=== PATIENT | female | born 1980 | race Caucasian/White ===

== ENCOUNTER 2016-05-11 15:19 | Emergency (ER) | payer MEDICARE, MEDICAID ==
[~2016-05-11] VITALS: Ht 165.1 cm; Wt 65.8 kg
[~2016-05-11 15:19] MED LIST: ALPR0.5T PO; BUSP10TA PO; DIVA500T2 PO; GLIP10TA13 PO; INSU100C4 SQ; INSU100V8 SQ; LISI-334 PO; METF10002 PO; QUET400T4 PO; VENL150C PO
[2016-05-11] MEDS ORDERED: IV NORMAL SALINE 1000ML BAG 1,000 ML IV SCH (16:15)
[2016-05-11] MEDS ORDERED: NAPROXEN 500 MG TABLET PO ONE (16:15)
--- NOTE | 2016-05-11 16:15 | PHYS DOC ---
Past Medical History Past Medical History: Anxiety, Diabetes-Type I Past Surgical History: Other Additional Past Surgical Histo: D&C x 2; endometriosis ablation; adenoidectomy Alcohol Use: None Drug Use: None Adult General Chief Complaint Chief Complaint: BLOOD SUGAR PROBLEM HPI HPI Patient is a 35 year old female who presents with body aches. Patient reports over the past several days she has been experiencing generalized body aches, cough, runny nose, polyuria. She denies fever. Patient concerned that she is in DKA as she is type I diabetic and her blood glucose has been somewhat elevated, getting up to 425 last night. She has been taking her insulin as she is supposed to. No nausea or vomiting. No abdominal pain, chest pain, SOB. She has tried taking ibuprofen and hydrocodone for her symptoms with insufficient relief. No other acute complaints. Review of Systems Review of Systems Constitutional: Denies fever or chills Eyes: Denies change in visual acuity or eye pain HENT: Runny nose. Denies sore throat Respiratory: Cough. Denies shortness of breath Cardiovascular: Denies chest pain GI: Denies abdominal pain, nausea, vomiting, bloody stools or diarrhea : Polyuria. Denies dysuria or hematuria Musculoskeletal: General myalgias Integument: Denies rash or skin lesions Neurologic: Denies headache, focal weakness or sensory changes Current Medications Current Medications Current Medications Medications (Trade) Dose Ordered Sig/Adam Start Time Stop Time Status Last Admin Dose Admin Naproxen 500 mg 500 mg 1X ONCE 05/11/16 16:15 05/11/16 16:19 DC 05/11/16 17:28 500 MG Sodium Chloride (Iv Sodium Chloride 0.9% 1000ml Bag) 1,000 ml @ 1,000 mls/hr 1X ONCE 05/11/16 18:30 05/11/16 18:30 DC Allergies Allergies Allergies Coded Allergies Type Severity Reaction Last Updated Verified No Known Drug Allergies 07/08/15 No Physical Exam Physical Exam Constitutional: Well developed, well nourished, no acute distress, non-toxic appearance HENT: Normocephalic, atraumatic, bilateral external ears normal. Oropharynx without exudate or erythema. Eyes: EOMI, conjunctiva normal, no discharge Neck: Normal range of motion, no stridor Cardiovascular: Heart rate normal, regular rhythm, no murmur Lungs & Thorax: Bilateral breath sounds clear to auscultation Abdomen: Bowel sounds normal, soft, non-distended, no TTP Skin: Warm, dry, no erythema, no rash Extremities: No obvious deformity, no edema Neurologic: Alert and oriented X 3, no gross deficits noted Current Patient Data Vital Signs Vital Signs Date Time Temp Pulse Resp B/P Pulse Ox O2 Delivery O2 Flow Rate FiO2 05/11/16 17:30 74 21 99/50 99 Room Air 05/11/16 16:04 98.1 98.1 Lab Values Laboratory Tests Test 05/11/16 17:00 05/11/16 17:10 White Blood Count 14.9x10^3/uL (4.0-11.0) H Red Blood Count 4.88x10^6/uL (3.50-5.40) Hemoglobin 14.7g/dL (12.0-15.5) Hematocrit 44.2% (36.0-47.0) Mean Corpuscular Volume 91fL (79-100) Mean Corpuscular Hemoglobin 30pg (25-35) Mean Corpuscular Hemoglobin Concent 33g/dL (31-37) Red Cell Distribution Width 13.3% (11.5-14.5) Platelet Count 281x10^3/uL (140-400) Neutrophils (%) (Auto) 62% (31-73) Lymphocytes (%) (Auto) 31% (24-48) Monocytes (%) (Auto) 6% (0-9) Eosinophils (%) (Auto) 1% (0-3) Basophils (%) (Auto) 1% (0-3) Neutrophils # (Auto) 9.2x10^3uL (1.8-7.7) H Lymphocytes # (Auto) 4.6x10^3/uL (1.0-4.8) Monocytes # (Auto) 0.9x10^3/uL (0.0-1.1) Eosinophils # (Auto) 0.1x10^3/uL (0.0-0.7) Basophils # (Auto) 0.1x10^3/uL (0.0-0.2) Sodium Level 140mmol/L (136-145) Potassium Level 3.7mmol/L (3.5-5.1) Chloride Level 103mmol/L (98-107) Carbon Dioxide Level 27mmol/L (21-32) Anion Gap 10 (6-14) Blood Urea Nitrogen 22mg/dL (7-20) H Creatinine 0.6mg/dL (0.6-1.0) Estimated GFR (Cockcroft-Gault) 113.1 BUN/Creatinine Ratio 37 (6-20) H Glucose Level 275mg/dL (70-99) H Calcium Level 9.1mg/dL (8.5-10.1) Total Bilirubin 0.4mg/dL (0.2-1.0) Aspartate Amino Transferase (AST) 14U/L (15-37) L Alanine Aminotransferase (ALT) 29U/L (14-59) Alkaline Phosphatase 63U/L (46-116) Total Protein 7.3g/dL (6.4-8.2) Albumin 3.7g/dL (3.4-5.0) Albumin/Globulin Ratio 1.0 (1.0-1.7) Urine Collection Type Void Urine Color Yellow Urine Clarity Clear Urine pH 5.5 Urine Specific [place] >=1.030 Urine Protein Negativemg/dL (NEG-TRACE) Urine Glucose (UA) >=1000mg/dL (NEG) Urine Ketones (Stick) 40mg/dL (NEG) Urine Blood Negative (NEG) Urine Nitrite Negative (NEG) Urine Bilirubin Negative (NEG) Urine Urobilinogen Dipstick 0.2mg/dL (0.2 mg/dL) Urine Leukocyte Esterase Negative (NEG) Urine RBC 0/HPF (0-2) Urine WBC Occ/HPF (0-4) Urine Squamous Epithelial Cells Mod/LPF Urine Bacteria Few/HPF (0-FEW) Urine Mucus Mod/LPF Urine Yeast Present/HPF Urine Test Negative (NEG) Laboratory Tests 05/11/16 17:00 Laboratory Tests 05/11/16 17:00 EKG EKG [] Radiology/Procedures Radiology/Procedures CXR (my read): Few scattered punctate opacities, otherwise no acute abnormality. Course & Med Decision Making Course & Med Decision Making Pertinent Labs and Imaging studies reviewed. (See chart for details) Patient is 35 year old female who presents with cough, runny nose, myalgias, polyuria. Physical exams without concerning findings. Likely viral URI. Will check labs to r/o DKA. IV fluids and naproxen ordered for relief of symptoms. Labs unremarkable other than mild leukocytosis. Blood glucose 275; bicarb and anion gap both wnl, so no DKA. Discussed results with patient, who is feeling somewhat better at this time. Discussed expected course of illness and symptomatic treatment with patient. Will discharge home with rx for NSAID, instructions for close follow up, and strict return precautions. Dragon Disclaimer Dragon Disclaimer This electronic medical record was generated, in whole or in part, using a voice recognition dictation system. Departure Departure Impression: Primary Impression: Upper respiratory infection Disposition: HOME, SELF-CARE Condition: STABLE Referrals: ALBERTO MCCOY (PCP) Patient Instructions: Upper Respiratory Infection, Adult Additional Instructions: Thank you for allowing us to provide care today in the Emergency Department. Take the provided medication as directed. Schedule a follow up appointment with your primary care doctor. Return promptly to the Emergency Department if you develop any new or concerning symptoms. Scripts Naproxen 375 Mg [id number] Mg PO BID PRN MUSCLE PAIN #20 Prov:JAZIEL PIZARRO MD 05/11/16 JAIZEL PIZARRO MD May 11, 2016 16:15
[2016-05-11 17:21] LABS: NEG OBC UR NEG; POS OBC UR POS
[2016-05-11 17:22] LABS: BASO # 0.1 x10^3/uL (0.0-0.2); BASO % 1 % (0-3); EOS % 1 % (0-3); HEMATOCRIT 44.2 % (36.0-47.0); HEMOGLOBIN 14.7 g/dL (12.0-15.5); LYMPH # 4.6 x10^3/uL (1.0-4.8); LYMPH % 31 % (24-48); MEAN CORPUSCULAR HEMOGLOBIN 30 pg (25-35); MEAN CORPUSCULAR HGB CONC 33 g/dL (31-37); MEAN CORPUSCULAR VOLUME 91 fL (79-100); MONO % 6 % (0-9); NEUT % 62 % (31-73); PLATELET COUNT 281 x10^3/uL (140-400); RED BLOOD COUNT 4.88 x10^6/uL (3.50-5.40); RED CELL DISTRIBUTION WIDTH 13.3 % (11.5-14.5); WHITE BLOOD COUNT 14.9 x10^3/uL (4.0-11.0)
[2016-05-11 17:25] LABS: BILIRUBIN,URINE NEGATIVE (NEG); GLUCOSE,URINE >=1000 mg/dL (NEG); NITRITE,URINE NEGATIVE (NEG); PH,URINE 5.5; PROTEIN,URINE NEGATIVE (NEG-TRACE); UROBILINOGEN,URINE 0.2 mg/dL (0.2 mg/dL)
[2016-05-11 17:29] LABS: CALCIUM 9.1 mg/dL (8.5-10.1); CREATININE 0.6 mg/dL (0.6-1.0); GFR 113.1; POTASSIUM 3.7 mmol/L (3.5-5.1)
[2016-05-11 17:30] VITALS: BP 99/50
[2016-05-11 17:34] LABS: ALBUMIN 3.7 g/dL (3.4-5.0); TOTAL BILIRUBIN 0.4 mg/dL (0.2-1.0); TOTAL PROTEIN 7.3 g/dL (6.4-8.2)
[2016-05-11 17:44] LABS: BACTERIA,URINE FEW /HPF (0-FEW); RBC,URINE 0 /HPF (0-2); SQUAMOUS EPITHELIAL CELL,UR MOD /LPF; WBC,URINE OCC /HPF (0-4); YEAST,URINE PRESENT /HPF
[2016-05-11] MEDS ORDERED: NAPR375T3 PO (18:21)
[2016-05-11] MEDS ORDERED: IV NORMAL SALINE 1000ML BAG 1,000 ML IV ONE (18:30)
--- NOTE | 2016-05-12 09:17 | RAD ---
PA and lateral chest. History: Cough, history of asthma PA and lateral views were taken of the chest. Lungs are free of infiltrates. Heart is normal in size. There is no pleural effusion. Impression: 1. No acute chest disease.
== END 2016-05-11 18:34 | disposition home or self-care (01) ==
LOC: ER 15:19
DX: J06.9 Acute upper respiratory infection, unspecified (principal); E10.9 Type 1 diabetes mellitus without complications
CPT/HCPCS: 36415; 71020; 80053; 81001; 81025; 85027; 96360; 99285; J7030

== ENCOUNTER 2016-08-13 21:56 | Emergency (ER) | payer MEDICARE, MEDICAID ==
[~2016-08-13] VITALS: Ht 165.1 cm; Wt 68.0 kg
[~2016-08-13 21:56] MED LIST changes: +NAPR375T3 PO
[2016-08-13 22:18] VITALS: BP 124/62
[2016-08-13] MEDS ORDERED: CIPR10DR AD (22:55)
[2016-08-13] MEDS ORDERED: D-ME118S2 PO (22:55)
[2016-08-13] MEDS ORDERED: AZIT250T6 PO (22:55)
--- NOTE | 2016-08-13 22:57 | PHYS DOC ---
Past Medical History Past Medical History: Anxiety, Diabetes-Type I Past Surgical History: Other Additional Past Surgical Histo: D&C x 2; endometriosis ablation; adenoidectomy Alcohol Use: Sober Drug Use: None Adult General Chief Complaint Chief Complaint: COUGH HPI HPI Patient is a 35 year old female with a history of insulin-dependent diabetes and asthma presents the emergency Department today with a complaint of harsh, nonproductive cough with difficulty breathing that is been progressive over the past 3 weeks. She now complains of nasal congestion and right ear pain as well. Patient was seen at couple weeks ago and was told that she had a viral upper respiratory infection. She has not followed up since that period of time. Patient states that she does have an appointment with primary care doctor's office in the morning. She states that her blood sugars have been in the 200s. She is currently on this regimen for that in these discuss further glycemic management. Patient denies hospitalization, antibiotic use or foreign travel within the past 90 days. Review of Systems Review of Systems Constitutional: Denies fever or chills [] Eyes: Denies change in visual acuity, redness, or eye pain [] HENT: Denies nasal congestion or sore throat [] Respiratory: Denies cough or shortness of breath [] Cardiovascular: No additional information not addressed in HPI [] GI: Denies abdominal pain, nausea, vomiting, bloody stools or diarrhea [] : Denies dysuria or hematuria [] Musculoskeletal: Denies back pain or joint pain [] Integument: Denies rash or skin lesions [] Neurologic: Denies headache, focal weakness or sensory changes [] Endocrine: Denies polyuria or polydipsia [] Current Medications Current Medications Current Medications Medications (Trade) Dose Ordered Sig/Adam Start Time Stop Time Status Last Admin Dose Admin Albuterol/ Ipratropium (Duoneb) 3 ml 1X ONCE 08/13/16 23:00 08/13/16 23:01 DC 08/13/16 23:03 3 ML Allergies Allergies Allergies Coded Allergies Type Severity Reaction Last Updated Verified No Known Drug Allergies 07/08/15 No Physical Exam Physical Exam Constitutional: Well developed, well nourished, no acute distress, non-toxic appearance. Patient is afebrile. HENT: Normocephalic, atraumatic, bilateral external ears normal, oropharynx moist, no oral exudates, boggy nasal mucosa with scant clear rhinorrhea. Right external ear canal is inflamed and slightly swollen. There is no mucopurulent drainage. Right tympanic membrane is normal in appearance without erythema, bulging, fluid meniscus or perforation. There is no evidence of mastoiditis. Eyes: PERRLA, EOMI, conjunctiva normal, no discharge. [] Neck: Normal range of motion, no tenderness, supple, no stridor. [] Cardiovascular:Heart rate regular rhythm, no murmur [] Lungs & Thorax: There is no respiratory distress or respiratory fatigue. There is no posturing or sensory muscle use. Patient is able speak in full sentences. Patient has scattered, bilateral coarse end expiratory wheezing. Abdomen: Bowel sounds normal, soft, no tenderness, no masses, no pulsatile masses. [] Skin: Warm, dry, no erythema, no rash. [] Back: No tenderness, no CVA tenderness. [] Extremities: No tenderness, no cyanosis, no clubbing, ROM intact, no edema. [] Neurologic: Alert and oriented X 3, normal motor function, normal sensory function, no focal deficits noted. [] Psychologic: Affect normal, judgement normal, mood normal. [] Current Patient Data Vital Signs Vital Signs Date Time Temp Pulse Resp B/P Pulse Ox O2 Delivery O2 Flow Rate FiO2 08/13/16 23:03 97 Room Air 08/13/16 22:18 97.9 80 20 97.9 EKG EKG [] Radiology/Procedures Radiology/Procedures [] Course & Med Decision Making Course & Med Decision Making Pertinent Labs and Imaging studies reviewed. (See chart for details) [] Dragon Disclaimer Dragon Disclaimer This electronic medical record was generated, in whole or in part, using a voice recognition dictation system. Departure Departure Impression: Primary Impression: Otitis externa Additional Impression: Bronchitis Disposition: 01 HOME, SELF-CARE Condition: IMPROVED Referrals: ALBERTO MCCOY (PCP) Patient Instructions: Acute Bronchitis, [id number], Otitis Externa, Easy-to- Read, Smoking Cessation, Tips For Success, Smoking, You Can Quit, [id number] Additional Instructions: 1. Take medications as prescribed. [id number] Afrin nasal spray twice a day for 3 days to help with the nasal congestion as well. 2. Review the discharge instructions provided for self-care and reasons to return the emergency department. 3. Follow-up tomorrow for your appointment as planned. Be sure to discuss your problems with consistent blood sugar control as well as. Scripts Ciprofloxacin/Hydrocortisone (Cipro Hc Otic Suspension)10 Ml Drops.susp3 Drop AD BID external ear infection 7 Days Prov:OLIVIA ADRIAN 08/13/16 D-Methorphan Hb/Prometh Hcl (Promethazine-Dm Syrup)118 Ml Syrup5 Ml PO PRN Q4HRS COUGH #120 ML Prov:OLIVIA ADRIAN 08/13/16 Azithromycin (Azithromycin Tablet)250 Mg Tablet1 Pkg PO UD #6 TAB Prov:OLIVIA ADRIAN 08/13/16 Problem Qualifiers Primary Impression: Otitis externa Otitis externa type: noninfectious Noninfectious otitis externa type: reactive Laterality: right Chronicity: acute Qualified Code: H60.551 - Acute reactive otitis externa, right ear OLIVIA ADRIAN Aug 13, 2016 22:57
[2016-08-13] MEDS ORDERED: IPRATRPIUM/ALBUTEROL 0.5/2.5MG 3 ML NEBU. NEB ONE (23:00)
== END 2016-08-13 23:15 | disposition home or self-care (01) ==
LOC: ER 21:56
DX: H60.551 Acute reactive otitis externa, right ear (principal); J40 Bronchitis, not specified as acute or chronic; E10.9 Type 1 diabetes mellitus without complications; F41.9 Anxiety disorder, unspecified
CPT/HCPCS: 94250; 94640; 99283; J7620

== ENCOUNTER 2016-09-01 10:20 | Emergency (ER) | payer MEDICARE, MEDICAID ==
[~2016-09-01] VITALS: Ht 165.1 cm; Wt 72.6 kg
[~2016-09-01 10:20] MED LIST changes: +AZIT250T6 PO; +CIPR10DR AD; +D-ME118S2 PO; +METF-620 PO; -METF10002 PO
[2016-09-01 10:43] VITALS: BP 134/60
[2016-09-01] MEDS ORDERED: DIPHTH,PERTUSS(ACELL),TET TOX 0.5 ML DISP.SYRIN. VAX IM ONE (11:00)
--- NOTE | 2016-09-01 11:17 | RAD ---
2 view CXR: Clinical indications: Cough for one week. Back pain for 2 days.. Findings: No acute lung infiltrate or pleural effusion or pulmonary edema or lung mass or pneumothorax is seen. The heart size, pulmonary vasculature, mediastinum and both marilyn are unremarkable. The osseous structures appear intact. Impression: No acute radiographic abnormality is seen.
[2016-09-01] MEDS ORDERED: LIDOCAINE 2% VISCOUS 15 ML SOLUTION. SWSW ONE (11:30)
[2016-09-01 12:03] LABS: BILIRUBIN,URINE NEGATIVE (NEG); GLUCOSE,URINE >=1000 mg/dL (NEG); NITRITE,URINE NEGATIVE (NEG); PROTEIN,URINE NEGATIVE (NEG-TRACE); UROBILINOGEN,URINE 0.2 mg/dL (0.2 mg/dL)
[2016-09-01] MEDS ORDERED: LIDO20SO PO (12:08)
[2016-09-01] MEDS ORDERED: SULF1TAB24 PO (12:08)
[2016-09-01] MEDS ORDERED: BENZ100C PO (12:08)
--- NOTE | 2016-09-01 12:08 | PHYS DOC ---
Past Medical History Past Medical History: Anxiety, Diabetes-Type I Past Surgical History: Other Additional Past Surgical Histo: D&C x 2; endometriosis ablation; adenoidectomy Alcohol Use: Sober Drug Use: None Adult General Chief Complaint Chief Complaint: COUGH HPI HPI Patient is a 35 year old female with history of anxiety and diabetes type 1 who presents today with multiple complaints. Patient is complaining of a productive cough for the last 1 week. Patient states 2 weeks ago she was treated with azithromycin for bronchitis. She is a smoker. She states she smokes 2 packs of cigarettes a day. Patient denies any fever. She is also complaining of a sore throat and ear pain. Patient is also complaining of ingrown hairs on her pubic area. Patient states the areas appear red. The been red for week. Patient denies any drainage from the areas. She states her shots are up-to-date. She states her blood sugars run in the 200s. She states she is on insulin. Review of Systems Review of Systems Constitutional: See history of present illness Eyes: Denies change in visual acuity, redness, or eye pain [] HENT: Bilateral ear pain and sore throat [] Respiratory: Productive cough Cardiovascular: No additional information not addressed in HPI [] GI: Denies abdominal pain, nausea, vomiting, bloody stools or diarrhea [] : Denies dysuria or hematuria [] Musculoskeletal: Denies back pain or joint pain [] Integument: Ingrown hairs Neurologic: Denies headache, focal weakness or sensory changes [] Endocrine: Denies polyuria or polydipsia [] Current Medications Current Medications Current Medications Medications (Trade) Dose Ordered Sig/Adam Start Time Stop Time Status Last Admin Dose Admin Diphtheria/ Tetanus/Acell Pertussis (Boostrix) 0.5 ml ONCE ONCE 09/01/16 11:00 09/01/16 11:01 Cancel Lidocaine HCl (Viscous Lidocaine) 15 ml 1X ONCE 09/01/16 11:30 09/01/16 11:31 DC 09/01/16 11:32 15 ML Allergies Allergies Allergies Coded Allergies Type Severity Reaction Last Updated Verified No Known Drug Allergies 07/08/15 No Physical Exam Physical Exam Constitutional: Well developed, well nourished, no acute distress, non-toxic appearance. [] HENT: Normocephalic, atraumatic, bilateral external ears normal, oropharynx moist, no oral exudates, nose normal. [] Eyes: PERRLA, EOMI, conjunctiva normal, no discharge. [] Neck: Normal range of motion, no tenderness, supple, no stridor. [] Cardiovascular:Heart rate regular rhythm, no murmur [] Lungs & Thorax: Bilateral breath sounds clear to auscultation [] Abdomen: Bowel sounds normal, soft, no tenderness, no masses, no pulsatile masses. [] Skin: pubic region with scattered areas of cellulitis consistent from infected ingrown hair follicles. No drainage from the areas. Back: No tenderness, no CVA tenderness. [] Extremities: No tenderness, no cyanosis, no clubbing, ROM intact, no edema. [] Neurologic: Alert and oriented X 3, normal motor function, normal sensory function, no focal deficits noted. [] Psychologic: Affect normal, judgement normal, mood normal. [] Current Patient Data Vital Signs Vital Signs Date Time Temp Pulse Resp B/P Pulse Ox O2 Delivery O2 Flow Rate FiO2 09/01/16 10:43 98.1 62 18 134/60 97 Room Air 98.1 EKG EKG [] Radiology/Procedures Radiology/Procedures [] Course & Med Decision Making Course & Med Decision Making Pertinent Labs and Imaging studies reviewed. (See chart for details) Patient is in the ED with multiple complaints including a productive cough, bilateral ear pain, sore throat, ingrown hairs that appear infected. Her upper respiratory infection symptoms are suspicious for bronchitis which is viral. She requested a cough syrup. Recommended Tessalon Perles instead and OTC cough medicines. She has albuterol at home. She is diabetic hence prednisone motor good choice. Her shots are up-to-date. Chest x-ray interpreted by radiologist is negative for any acute findings. Negative rapid strep. Discharged with Bactrim for 10 days. Instructed to keep the pubic area clean. Follow-up with her own doctor in one week. Smoking cessation education provided Jarred Disclaimer Jarred Disclaimer This electronic medical record was generated, in whole or in part, using a voice recognition dictation system. Departure Departure Impression: Primary Impression: Acute viral bronchitis Additional Impressions: Smoking addiction Cellulitis of pubic region Ingrown hair Otalgia of both ears Viral pharyngitis Disposition: 01 HOME, SELF-CARE Condition: STABLE Referrals: ALBERTO MCCOY (PCP) Follow-up with your doctor in one week Patient Instructions: Acute Bronchitis, [id number], Cellulitis, Viral and Bacterial Pharyngitis Additional Instructions: You were diagnosed with viral bronchitis. Stop smoking. Use albuterol inhaler as needed. Keep the pubic area clean and dry. Use saltwater gargles for sore throat. We also sent you home with lidocaine viscous for sore throat. We put you on antibiotics for ingrown infected hair follicles. Follow-up with your doctor in one week. Scripts Lidocaine Hcl (Lidocaine Hcl Viscous)20 Mg/1 Ml Solution5 Ml PO TID #100 ML Prov:USMAN BOYD APRN 09/01/16 Benzonatate (Tessalon Perle)100 Mg Capsule1 Cap PO TID #30 CAP Prov:USMAN BOYD APRN 09/01/16 Sulfamethoxazole/Trimethoprim (Bactrim Ds Tablet)1 Each Tablet1 Tab PO BID #20 TAB Prov:USMAN BOYD APRN 09/01/16 Problem Qualifiers USMAN BOYD APRN Sep 01, 2016 12:08
[2016-09-01 12:27] LABS: NEGATIVE OBC STREP NEG; POSITIVE OBC STREP POS
[2016-09-01 12:33] LABS: BACTERIA,URINE 0 /HPF (0-FEW); RBC,URINE 0 /HPF (0-2); SQUAMOUS EPITHELIAL CELL,UR MOD /LPF
== END 2016-09-01 12:28 | disposition home or self-care (01) ==
LOC: ER 10:20
DX: J20.8 Acute bronchitis due to other specified organisms (principal); L03.314 Cellulitis of groin; H92.03 Otalgia, bilateral; L73.1 Pseudofolliculitis barbae; F17.210 Nicotine dependence, cigarettes, uncomplicated; F41.9 Anxiety disorder, unspecified; E10.8 Type 1 diabetes mellitus with unspecified complications
CPT/HCPCS: 71020; 81001; 87070; 87880; 99285-25

== ENCOUNTER 2016-09-10 21:25 | Emergency (ER) | payer MEDICARE, MEDICAID ==
[~2016-09-10 21:25] MED LIST changes: +BENZ100C PO; +LIDO20SO PO; +SULF1TAB24 PO
[2016-09-11] MEDS ORDERED: METR500T PO (19:59)
== END 2016-09-10 21:51 | disposition left against medical advice (07) ==
LOC: ER 21:25
DX: R05 Cough (principal); R73.9 Hyperglycemia, unspecified; Z53.21 Procedure and treatment not carried out due to patient leaving prior to being seen by health care provider

== ENCOUNTER 2016-09-11 16:55 | Emergency (ER) | payer MEDICAID, MEDICARE ==
[~2016-09-11] VITALS: Ht 165.1 cm; Wt 72.6 kg
--- NOTE | 2016-09-11 17:25 | PHYS DOC ---
Past Medical History Past Medical History: Anxiety, Diabetes-Type I Past Surgical History: Other Additional Past Surgical Histo: D&C x 2; endometriosis ablation; adenoidectomy Alcohol Use: Sober Drug Use: None Adult General Chief Complaint Chief Complaint: HYPERGLYCEMIA HPI HPI Patient is a 35 year old patient presenting to the emergency department for evaluation of hyperglycemia. She has a large list of other complaints mostly regarding her fibromyalgia pain. 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 She says that she has been in DKA multiple times in the past and is unsure if she is in DKA currently. Patient has been taking her insulin as prescribed. She does continue to have her bronchitis symptoms but she does continue to smoke I told her she would not get better as long she smokes cigarettes. Patient denies any fevers chills vomiting dysuria or hematuria rash. Patient is in no obvious distress with normal vital signs. Review of Systems Review of Systems Constitutional: Denies fever or chills [] Eyes: Denies change in visual acuity, redness, or eye pain [] HENT: Denies nasal congestion or sore throat [] Respiratory: Denies cough or shortness of breath [] Cardiovascular: No additional information not addressed in HPI [] GI: Denies abdominal pain, nausea, vomiting, bloody stools or diarrhea [] : Denies dysuria or hematuria [] Musculoskeletal: Denies back pain or joint pain. Diffuse arthralgias and myalgias. Integument: Denies rash or skin lesions [] Neurologic: Denies headache, focal weakness or sensory changes [] Current Medications Current Medications Current Medications Medications (Trade) Dose Ordered Sig/Adam Start Time Stop Time Status Last Admin Dose Admin Diphenhydramine HCl (Benadryl) 25 mg 1X ONCE 09/11/16 17:45 09/11/16 17:46 DC 09/11/16 18:32 25 MG Insulin Human Regular (Novolin R Vial) 6 unit 1X ONCE 09/11/16 19:00 09/11/16 19:01 DC 09/11/16 19:12 6 UNIT Ketorolac Tromethamine (Toradol) 30 mg 1X ONCE 09/11/16 17:45 09/11/16 17:46 DC 09/11/16 18:32 30 MG Sodium Chloride 1,000 ml @ 1,000 mls/hr 1X ONCE 09/11/16 19:00 09/11/16 19:59 09/11/16 19:13 1,000 MLS/HR Allergies Allergies Allergies Coded Allergies Type Severity Reaction Last Updated Verified No Known Drug Allergies 07/08/15 No Physical Exam Physical Exam Constitutional: Well developed, well nourished, no acute distress, non-toxic appearance. [] HENT: Normocephalic, atraumatic, bilateral external ears normal, oropharynx moist, no oral exudates, nose normal. [] Eyes: PERRLA, EOMI, conjunctiva normal, no discharge. [] Neck: Normal range of motion, no tenderness, supple, no stridor. [] Cardiovascular:Heart rate regular rhythm, no murmur [] Lungs & Thorax: Bilateral breath sounds clear to auscultation [] Abdomen: Bowel sounds normal, soft, no tenderness, no masses, no pulsatile masses. [] Skin: Warm, dry, no erythema, no rash. [] Back: No tenderness, no CVA tenderness. [] Extremities: No tenderness, no cyanosis, no clubbing, ROM intact, no edema. [] Neurologic: Alert and oriented X 3, normal motor function, normal sensory function, no focal deficits noted. [] Current Patient Data Vital Signs Vital Signs Date Time Temp Pulse Resp B/P (MAP) Pulse Ox O2 Delivery O2 Flow Rate FiO2 09/11/16 18:33 77 17 100/54 (69) 97 Room Air 09/11/16 17:37 98.5 98.5 Lab Values Laboratory Tests Test 09/11/16 16:40 09/11/16 17:32 09/11/16 17:35 09/11/16 18:11 POC Urine HCG, Qualitative Hcg negative (Negative) Glucose (Fingerstick) 306 mg/dL (70-99) H Urine Collection Type Unknown Urine Color Yellow Urine Clarity Clear Urine pH 6.5 Urine Specific [place] >=1.030 Urine Protein Negative mg/dL (NEG-TRACE) Urine Glucose (UA) >=1000 mg/dL (NEG) Urine Ketones (Stick) 15 mg/dL (NEG) Urine Blood Negative (NEG) Urine Nitrite Negative (NEG) Urine Bilirubin Negative (NEG) Urine Urobilinogen Dipstick 0.2 mg/dL (0.2 mg/dL) Urine Leukocyte Esterase Negative (NEG) Urine RBC 0 /HPF (0-2) Urine WBC 5-10 /HPF (0-4) Urine Squamous Epithelial Cells Mod /LPF Urine Bacteria 0 /HPF (0-FEW) Urine Mucus Mod /LPF White Blood Count 10.2 x10^3/uL (4.0-11.0) Red Blood Count 4.49 x10^6/uL (3.50-5.40) Hemoglobin 13.6 g/dL (12.0-15.5) Hematocrit 38.9 % (36.0-47.0) Mean Corpuscular Volume 87 fL (79-100) Mean Corpuscular Hemoglobin 30 pg (25-35) Mean Corpuscular Hemoglobin Concent 35 g/dL (31-37) Red Cell Distribution Width 13.1 % (11.5-14.5) Platelet Count 272 x10^3/uL (140-400) Neutrophils (%) (Auto) 48 % (31-73) Lymphocytes (%) (Auto) 42 % (24-48) Monocytes (%) (Auto) 8 % (0-9) Eosinophils (%) (Auto) 2 % (0-3) Basophils (%) (Auto) 1 % (0-3) Neutrophils # (Auto) 4.9 x10^3uL (1.8-7.7) Lymphocytes # (Auto) 4.3 x10^3/uL (1.0-4.8) Monocytes # (Auto) 0.8 x10^3/uL (0.0-1.1) Eosinophils # (Auto) 0.2 x10^3/uL (0.0-0.7) Basophils # (Auto) 0.1 x10^3/uL (0.0-0.2) Sodium Level 138 mmol/L (136-145) Potassium Level 3.7 mmol/L (3.5-5.1) Chloride Level 102 mmol/L (98-107) Carbon Dioxide Level 26 mmol/L (21-32) Anion Gap 10 (6-14) Blood Urea Nitrogen 22 mg/dL (7-20) H Creatinine 0.6 mg/dL (0.6-1.0) Estimated GFR (Cockcroft-Gault) 113.1 BUN/Creatinine Ratio 37 (6-20) H Glucose Level 269 mg/dL (70-99) H Calcium Level 9.0 mg/dL (8.5-10.1) Magnesium Level 1.6 mg/dL (1.8-2.4) L Total Bilirubin 0.2 mg/dL (0.2-1.0) Aspartate Amino Transferase (AST) 13 U/L (15-37) L Alanine Aminotransferase (ALT) 19 U/L (14-59) Alkaline Phosphatase 69 U/L (46-116) Creatine Kinase 43 U/L (26-192) Total Protein 7.1 g/dL (6.4-8.2) Albumin 3.3 g/dL (3.4-5.0) L Albumin/Globulin Ratio 0.9 (1.0-1.7) L Laboratory Tests 09/11/16 18:11 Laboratory Tests 09/11/16 18:11 Microbiology 09/11/16 Wet Prep - Final, Complete EKG EKG [] Radiology/Procedures Radiology/Procedures [] Course & Med Decision Making Course & Med Decision Making Patient with concerns of hyperglycemia such she will get labs be given IV fluids and then reassessed. She only has trace ketones in her urines and she looks well with normal labs otherwise with no acidosis or anion gap. She has clue cells on her wet mount she says she has vaginal discharge such she'll be treated with Flagyl. Patient told to check her blood sugars frequently and repeat serum her normal dose and follow with her primary care provider and/or admissions gate attendant as soon as possible. Patient aware and agreeable with plan for discharge and verbalized understanding of the need for short-term follow-up and strict ER return precautions discussed, worsening pain fevers vomiting or other general concerns. Dragon Disclaimer Dragon Disclaimer This electronic medical record was generated, in whole or in part, using a voice recognition dictation system. Departure Departure Impression: Primary Impression: Hyperglycemia due to type 1 diabetes mellitus Additional Impression: BV (bacterial vaginosis) Disposition: 01 HOME, SELF-CARE Condition: GOOD Referrals: ALBERTO MCCOY (PCP) Patient Instructions: Bacterial Vaginosis Scripts Metronidazole (FLAGYL) 500 Mg Tablet 1 TAB PO BID, #14 TAB Prov: ALF BOWLING DO 09/11/16 Problem Qualifiers ALF BOWLING DO September 11, 2016 17:24
[2016-09-11] MEDS ORDERED: IV NORMAL SALINE 1000ML BAG 1,000 ML IV ONE ×2 (17:45→19:00)
[2016-09-11] MEDS ORDERED: diphenhydrAMINE 50 MG/ML VIAL IVP ONE (17:45)
[2016-09-11] MEDS ORDERED: KETOROLAC TROMETHAMINE 30 MG/ML INJ. IV ONE (17:45)
[2016-09-11 17:57] LABS: BILIRUBIN,URINE NEGATIVE (NEG); GLUCOSE,URINE >=1000 mg/dL (NEG); NITRITE,URINE NEGATIVE (NEG); PH,URINE 6.5; PROTEIN,URINE NEGATIVE (NEG-TRACE); UROBILINOGEN,URINE 0.2 mg/dL (0.2 mg/dL)
[2016-09-11 18:14] LABS: BACTERIA,URINE 0 /HPF (0-FEW); RBC,URINE 0 /HPF (0-2); SQUAMOUS EPITHELIAL CELL,UR MOD /LPF
[2016-09-11 18:19] LABS: BASO # 0.1 x10^3/uL (0.0-0.2); BASO % 1 % (0-3); EOS % 2 % (0-3); HEMATOCRIT 38.9 % (36.0-47.0); HEMOGLOBIN 13.6 g/dL (12.0-15.5); LYMPH # 4.3 x10^3/uL (1.0-4.8); LYMPH % 42 % (24-48); MEAN CORPUSCULAR HEMOGLOBIN 30 pg (25-35); MEAN CORPUSCULAR HGB CONC 35 g/dL (31-37); MEAN CORPUSCULAR VOLUME 87 fL (79-100); MONO % 8 % (0-9); NEUT % 48 % (31-73); PLATELET COUNT 272 x10^3/uL (140-400); RED BLOOD COUNT 4.49 x10^6/uL (3.50-5.40); RED CELL DISTRIBUTION WIDTH 13.1 % (11.5-14.5); WHITE BLOOD COUNT 10.2 x10^3/uL (4.0-11.0)
[2016-09-11 18:31] LABS: CREATININE 0.6 mg/dL (0.6-1.0); GFR 113.1; POTASSIUM 3.7 mmol/L (3.5-5.1)
[2016-09-11 18:37] LABS: ALBUMIN 3.3 g/dL (3.4-5.0); ALBUMIN/GLOBULIN RATIO 0.9 (1.0-1.7); MAGNESIUM 1.6 mg/dL (1.8-2.4); TOTAL BILIRUBIN 0.2 mg/dL (0.2-1.0); TOTAL PROTEIN 7.1 g/dL (6.4-8.2)
[2016-09-11] MEDS ORDERED: INSULIN REGULAR 100 UNIT/ML 10ML VIAL. IV ONE (19:00)
[2016-09-11 19:33] VITALS: BP 111/59
[2016-09-11] MEDS ORDERED: METR500T PO (19:59)
== END 2016-09-11 20:29 | disposition home or self-care (01) ==
LOC: ER 16:55
DX: E10.65 Type 1 diabetes mellitus with hyperglycemia (principal); N76.0 Acute vaginitis; F41.9 Anxiety disorder, unspecified; M79.7 Fibromyalgia
CPT/HCPCS: 36415; 80053; 81001; 81025; 82550; 82947; 83735; 85027; 87086; 87491; 87591; 96361; 96374; 96375; 99285; J1200; J1815; J1885; J7030; Q0111; 99284-25

== ENCOUNTER 2017-03-20 02:56 | Emergency (ER) | payer MEDICARE, MEDICAID ==
[~2017-03-20] VITALS: Ht 170.2 cm; Wt 72.6 kg
[~2017-03-20 02:56] MED LIST changes: +CLON1TAB PO; +METR500T PO; +NAPR-695 PO; -NAPR375T3 PO
[2017-03-20 03:14] VITALS: BP 169/84
--- NOTE | 2017-03-20 06:17 | PHYS DOC ---
Past Medical History Past Medical History: Anxiety, Diabetes-Type I, Fibromyalgia, High Cholesterol Past Surgical History: Other Additional Past Surgical Histo: D&C x 2; endometriosis ablation; adenoidectomy Alcohol Use: Heavy Drug Use: Marijuana, Methamphetamine Adult General Chief Complaint Chief Complaint: SUBSTANCE ABUSE HPI HPI 36-year-old female with a history of methamphetamine addiction as well as diabetes with a recent admission for diabetic ketoacidosis. Patient now presents to the emergency department after using some meth recently. She was concerned that her glucose was elevated. She is not vomiting or having diarrhea. No fevers chills sweats or shaking chills. No headache or stiff neck. Denies chest pain or shortness of breath. Patient is considering pursuing detox therapy for her methamphetamine. Offered this as an inpatient however she wishes to pursue it as an outpatient. Patient is blood glucose checked on arrival and was 180 so she is not interested in any further evaluation or treatment and will sign out AGAINST MEDICAL ADVICE. Review of Systems Review of Systems Constitutional: Denies fever or chills [] Eyes: Denies change in visual acuity, redness, or eye pain [] HENT: Denies nasal congestion or sore throat [] Respiratory: Denies cough or shortness of breath [] Cardiovascular: No additional information not addressed in HPI [] GI: Denies abdominal pain, nausea, vomiting, bloody stools or diarrhea [] : Denies dysuria or hematuria [] Musculoskeletal: Denies back pain or joint pain [] Integument: Denies rash or skin lesions [] Neurologic: Denies headache, focal weakness or sensory changes [] Endocrine: Denies polyuria or polydipsia [] All other systems were reviewed and found to be within normal limits, except as documented in this note. Allergies Allergies Allergies Coded Allergies Type Severity Reaction Last Updated Verified No Known Drug Allergies 07/08/15 No Physical Exam Physical Exam Anxious-appearing 36-year-old female however she is alert communicative cooperative and competent for decision making. Constitutional: Disheveled nervous appearing female no acute distress HENT: Normocephalic, atraumatic, bilateral external ears normal, oropharynx moist, no oral exudates, nose normal. [] Eyes: PERRLA, EOMI, conjunctiva normal, no discharge. [] Neck: Normal range of motion, no tenderness, supple, no stridor. [] Cardiovascular:Heart rate regular rhythm, no murmur [] Lungs & Thorax: Bilateral breath sounds clear to auscultation [] Abdomen: Bowel sounds normal, soft, no tenderness, no masses, no pulsatile masses. [] Skin: Warm, dry Back: No tenderness, no CVA tenderness. [] Extremities: No tenderness, no cyanosis, no clubbing, ROM intact, no edema. [] Neurologic: Alert and oriented X 3, normal motor function, normal sensory function, no focal deficits noted. [] Psychologic: Affect normal, judgement normal, mood normal. [] Current Patient Data Vital Signs Vital Signs Date Time Temp Pulse Resp B/P (MAP) Pulse Ox O2 Delivery O2 Flow Rate FiO2 03/20/17 03:14 98.1 98 18 169/84 (112) 98 Room Air 98.1 Lab Values Laboratory Tests Test 03/20/17 03:07 03/20/17 03:10 Glucose (Fingerstick) 180 mg/dL (70-99) H POC Urine HCG, Qualitative Hcg negative (Negative) EKG EKG [] Radiology/Procedures Radiology/Procedures [] Course & Med Decision Making Course & Med Decision Making Pertinent Labs and Imaging studies reviewed. (See chart for details) She with methamphetamine addiction now refusing further care after blood glucose being determined be 180. Patient is comfortable at this level and is very clear that she is not suicidal. She has not overdosed intentionally in any way nor injured herself. She has no homicidal ideation. Patient states she is functional and wishes to pursue outpatient drug therapy. She is aware that she may have a skin infection from her methamphetamine IV drug abuse however she'll follow-up with the primary care doctor does not want further care at this time. Patient is competent to sign out AGAINST MEDICAL ADVICE and did so. She is encouraged to return any time for further workup and treatment as needed reading detox therapy if she so desires [] Dragon Disclaimer Dragon Disclaimer This electronic medical record was generated, in whole or in part, using a voice recognition dictation system. Departure Departure Impression: Primary Impression: Left against medical advice Additional Impressions: Methamphetamine abuse Hyperglycemia Disposition: AGAINST MEDICAL ADVICE Condition: STABLE Problem Qualifiers JASON AVINA MD Mar 20, 2017 06:16
== END 2017-03-20 03:25 | disposition left against medical advice (07) ==
LOC: ER 02:56
DX: E11.69 Type 2 diabetes mellitus with other specified complication (principal); E10.10 Type 1 diabetes mellitus with ketoacidosis without coma; F15.10 Other stimulant abuse, uncomplicated; M79.7 Fibromyalgia; E78.00 Pure hypercholesterolemia, unspecified; F10.10 Alcohol abuse, uncomplicated
CPT/HCPCS: 81025; 82962; 99283

== ENCOUNTER 2017-03-26 02:41 | Inpatient (IN) | payer MEDICARE, MEDICAID ==
[2017-03-26] VITALS (12 sets, daily range): BP systolic 111–138; BP diastolic 49–84
[~2017-03-26] VITALS: Ht 165.1 cm; Wt 60.9 kg
[2017-03-26 03:08] LABS: BILIRUBIN,URINE NEGATIVE (NEG); GLUCOSE,URINE >=1000 mg/dL (NEG); NITRITE,URINE NEGATIVE (NEG); PROTEIN,URINE 30 mg/dL (NEG-TRACE); UROBILINOGEN,URINE 0.2 mg/dL (0.2 mg/dL)
[2017-03-26 03:14] LABS: BACTERIA,URINE 0 /HPF (0-FEW); RBC,URINE 0 /HPF (0-2); SQUAMOUS EPITHELIAL CELL,UR MOD /LPF; WBC,URINE 0 /HPF (0-4)
[2017-03-26 03:15] LABS: BARBITURATES NEG (NEG); BENZODIAZEPINES POS (NEG); CANNABINOIDS NEG (NEG); COCAINE NEG (NEG); METHADONE NEG (NEG); OPIATES NEG (NEG); PHENCYCLIDINE NEG (NEG)
[2017-03-26] MEDS ORDERED: METOCLOPRAMIDE HCL 10 MG/2 ML VIAL. ONE (03:21)
[2017-03-26] MEDS ORDERED: ONDANSETRON PF 4 MG/2 ML VIAL. ONE (03:21)
[2017-03-26] MEDS ORDERED: ONDANSETRON PF 4 MG/2 ML VIAL. IV ONE (03:30)
[2017-03-26] MEDS ORDERED: INSULIN,REGULAR 150 UNIT DRIP 150 ML IV ONE (03:30)
[2017-03-26] MEDS ORDERED: IV NORMAL SALINE 1000ML BAG 1,000 ML IV ONE ×2 (03:30→04:15)
[2017-03-26] MEDS ORDERED: METOCLOPRAMIDE HCL 10 MG/2 ML VIAL. IV ONE (03:30)
[2017-03-26 03:34] LABS: BASO # 0.1 x10^3/uL (0.0-0.2); BASO % 0 % (0-3); EOS % 0 % (0-3); HEMATOCRIT 53.8 % (36.0-47.0); HEMOGLOBIN 16.9 g/dL (12.0-15.5); LYMPH # 2.3 x10^3/uL (1.0-4.8); LYMPH % 12 % (24-48); MEAN CORPUSCULAR HEMOGLOBIN 30 pg (25-35); MEAN CORPUSCULAR HGB CONC 32 g/dL (31-37); MEAN CORPUSCULAR VOLUME 95 fL (79-100); MONO % 4 % (0-9); NEUT % 84 % (31-73); PLATELET COUNT 520 x10^3/uL (140-400); RED BLOOD COUNT 5.65 x10^6/uL (3.50-5.40); RED CELL DISTRIBUTION WIDTH 14.2 % (11.5-14.5)
[2017-03-26 03:56] LABS: ALBUMIN/GLOBULIN RATIO 1.2 (1.0-1.7); CALCIUM 11.1 mg/dL (8.5-10.1); GFR 62.4; POTASSIUM 5.8 mmol/L (3.5-5.1); TOTAL BILIRUBIN 0.5 mg/dL (0.2-1.0); TOTAL PROTEIN 9.3 g/dL (6.4-8.2)
[2017-03-26] MEDS ORDERED: fentaNYL PF VIAL 100 MCG/2 ML VIAL IV ONE (04:00)
--- NOTE | 2017-03-26 04:06 | PHYS DOC ---
Past Medical History Past Medical History: Anxiety, Diabetes-Type I, Fibromyalgia, High Cholesterol Past Surgical History: Other Additional Past Surgical Histo: D&C x 2; endometriosis ablation; adenoidectomy Smoking: Cigarettes Alcohol Use: Heavy Drug Use: Marijuana, Methamphetamine Social History Narrative: IVDA Adult General Chief Complaint Chief Complaint: HYPERGLYCEMIA HPI HPI Patient is a 36 year old female who presents with vomiting. She is a type I diabetic diagnosed at age 19 on insulin. She is a heavy IV drug user; smokes tobacco; smokes marijuana and shoots up IV meth. She states she has not used her insulin for a couple days. She was seen here March 20 when she left AMA after a several day binge of IV meth use. At that time her D stick was 180; hCG was negative. She left before any other evaluation could be performed. She states that she can't keep anything down. She has pain all over. No diarrhea abdominal cramping and vomiting. Review of Systems Review of Systems Constitutional: Denies fever or chills Eyes: Denies change in visual acuity, redness, or eye pain HENT: Denies nasal congestion or sore throat Respiratory: Denies cough or shortness of breath Cardiovascular: No chest pain GI: POS abdominal pain, POS nausea and vomiting, NO bloody stools or diarrhea : Denies dysuria or hematuria Musculoskeletal: Denies back pain or joint pain Integument: Denies rash POS skin lesions from IV DA. Neurologic: Denies headache, focal weakness or sensory changes Endocrine: POS polyuria or polydipsia All other systems were reviewed and found to be within normal limits, except as documented in this note. Current Medications Current Medications Current Medications Medications (Trade) Dose Ordered Sig/Adam Start Time Stop Time Status Last Admin Dose Admin Fentanyl Citrate (Fentanyl 2ml Vial) 50 mcg 1X ONCE 03/26/17 04:00 03/26/17 04:01 DC 03/26/17 04:15 50 MCG Insulin Human Regular 150 ml @ 0 mls/hr 1X ONCE 03/26/17 03:30 03/26/17 03:31 DC 03/26/17 03:46 0 MLS/HR Metoclopramide HCl (Reglan Vial) 10 mg 1X ONCE 03/26/17 03:30 03/26/17 03:31 DC 03/26/17 03:30 10 MG Ondansetron HCl (Zofran) 4 mg 1X ONCE 03/26/17 03:30 03/26/17 03:31 DC 03/26/17 03:30 4 MG Sodium Chloride 1,000 ml @ 1,000 mls/hr 1X ONCE 03/26/17 03:30 03/26/17 04:29 DC 03/26/17 03:30 1,000 MLS/HR Allergies Allergies Allergies Coded Allergies Type Severity Reaction Last Updated Verified No Known Drug Allergies 07/08/15 No Physical Exam Physical Exam Constitutional: Well developed, well nourished, no acute distress, non-toxic appearance. HENT: Normocephalic, atraumatic, bilateral external ears normal, oropharynx dry , no oral exudates, nose normal. Eyes: PERRLA, EOMI, conjunctiva normal, no discharge. Neck: Normal range of motion, no tenderness, supple, no stridor. Cardiovascular:Heart rate regular rhythm, tachycardic no murmur Lungs & Thorax: Bilateral breath sounds clear to auscultation Abdomen: Bowel sounds normal, soft, no tenderness, no masses, no pulsatile masses. Skin: Warm, dry, no erythema, no rash. Multiple scars and needle tracks on bilateral arms. Back: No tenderness, no CVA tenderness. Extremities: No tenderness, no cyanosis, no clubbing, ROM intact, no edema. Neurologic: Alert and oriented X 3, normal motor function, normal sensory function, no focal deficits noted. Psychologic: Affect normal, judgement normal, mood normal. Current Patient Data Vital Signs Vital Signs Date Time Temp Pulse Resp B/P (MAP) Pulse Ox O2 Delivery O2 Flow Rate FiO2 03/26/17 03:01 97.2 124 16 142/78 (99) 100 Room Air 97.2 Lab Values Laboratory Tests Test 03/26/17 02:52 03/26/17 02:55 03/26/17 03:17 03/26/17 03:30 Glucose (Fingerstick) 486 mg/dL (70-99) H Urine Collection Type Unknown Urine Color Yellow Urine Clarity Clear Urine pH 6.0 Urine Specific [place] 1.025 Urine Protein 30 mg/dL (NEG-TRACE) Urine Glucose (UA) >=1000 mg/dL (NEG) Urine Ketones (Stick) >=80 mg/dL (NEG) Urine Blood Negative (NEG) Urine Nitrite Negative (NEG) Urine Bilirubin Negative (NEG) Urine Urobilinogen Dipstick 0.2 mg/dL (0.2 mg/dL) Urine Leukocyte Esterase Negative (NEG) Urine RBC 0 /HPF (0-2) Urine WBC 0 /HPF (0-4) Urine Squamous Epithelial Cells Mod /LPF Urine Bacteria 0 /HPF (0-FEW) Urine Hyaline Casts Few /HPF Urine Mucus Slight /LPF Urine Opiates Screen Neg (NEG) Urine Methadone Screen Neg (NEG) Urine Barbiturates Neg (NEG) Urine Phencyclidine Screen Neg (NEG) Urine Amphetamine/Methamphetamine Neg (NEG) Urine Benzodiazepines Screen Pos (NEG) Urine Cocaine Screen Neg (NEG) Urine Cannabinoids Screen Neg (NEG) Urine Ethyl Alcohol Neg (NEG) Sodium Level 138 mmol/L (136-145) Potassium Level 5.8 mmol/L (3.5-5.1) H Chloride Level 95 mmol/L (98-107) L Carbon Dioxide Level 8 mmol/L (21-32) *L Anion Gap 35 (6-14) H Blood Urea Nitrogen 19 mg/dL (7-20) Creatinine 1.0 mg/dL (0.6-1.0) Estimated GFR (Cockcroft-Gault) 62.4 BUN/Creatinine Ratio 19 (6-20) Glucose Level 499 mg/dL (70-99) H Calcium Level 11.1 mg/dL (8.5-10.1) H Total Bilirubin 0.5 mg/dL (0.2-1.0) Aspartate Amino Transferase (AST) 21 U/L (15-37) Alanine Aminotransferase (ALT) 32 U/L (14-59) Alkaline Phosphatase 166 U/L (46-116) H Total Protein 9.3 g/dL (6.4-8.2) H Albumin 5.0 g/dL (3.4-5.0) Albumin/Globulin Ratio 1.2 (1.0-1.7) White Blood Count 20.0 x10^3/uL (4.0-11.0) H Red Blood Count 5.65 x10^6/uL (3.50-5.40) H Hemoglobin 16.9 g/dL (12.0-15.5) H Hematocrit 53.8 % (36.0-47.0) H Mean Corpuscular Volume 95 fL (79-100) Mean Corpuscular Hemoglobin 30 pg (25-35) Mean Corpuscular Hemoglobin Concent 32 g/dL (31-37) Red Cell Distribution Width 14.2 % (11.5-14.5) Platelet Count 520 x10^3/uL (140-400) H Neutrophils (%) (Auto) 84 % (31-73) H Lymphocytes (%) (Auto) 12 % (24-48) L Monocytes (%) (Auto) 4 % (0-9) Eosinophils (%) (Auto) 0 % (0-3) Basophils (%) (Auto) 0 % (0-3) Neutrophils # (Auto) 16.8 x10^3uL (1.8-7.7) H Lymphocytes # (Auto) 2.3 x10^3/uL (1.0-4.8) Monocytes # (Auto) 0.8 x10^3/uL (0.0-1.1) Eosinophils # (Auto) 0.0 x10^3/uL (0.0-0.7) Basophils # (Auto) 0.1 x10^3/uL (0.0-0.2) Platelet Estimate Pending Acetone Level Mod pos (NEG) Laboratory Tests 03/26/17 03:30 Laboratory Tests 03/26/17 03:17 Course & Med Decision Making Course & Med Decision Making Patient upon arrival. The main concern is of course diabetic ketoacidosis. Patient is clearly extremely noncompliant. IV was established. Her D stick was over 400. Her urine came back positive ketones. Initiated normal saline fluid boluses. Insulin drip was initiated. Fentanyl IV for chronic and diffuse pain. Reglan and Zofran for the vomiting. She will clearly be admitted to ICU for insulin drip and further monitoring to Dr Wahl. At 0400 am: lab called with multiple critical values. At 0445 am: Patient resting now. BP 124/75, P 122, sat 100%. Second liter infusing. Dstick 359. At 0515 am: patient is a ER hold. Skin was examined no abscess noted but multiple needle tracks. I have spoken with the patient and/or caregivers. I have explained the patient' s condition, diagnosis and treatment plan based on the information available to me at this time. I have answered the patient's and/or caregiver's questions and addressed any concerns. The patient and/or caregivers have as good an understanding of the patient's diagnosis, condition and treatment plan as can be expected at this point. The patient has been stabilized within the capability of the emergency department. The patient will be transported for further care and management or will be moved to an observation or inpatient service. I have communicated with the staff or medical practitioner taking over this patient's care. I have assessed this patient clinically and believe that their condition requires admission to the hospital. After consulting the admitting physician about this case, they have asked that I admit this patient to their service as an inpatient based on the clinical presentation and my impression. I spent approximately 30 minutes working and engaged directly in the patient care providing critical care evaluation this includes but not limited to time spent engaged in work directly related to the individual patients care. I spent time at the bedside, reviewing test results, discussing the case with staff, documenting the medical record and time spent with EMS discussing specific treatment issues when the patient presented and during his evaluation. This includes any discussion and updates with family members and/or patient. Dragon Disclaimer Dragon Disclaimer This electronic medical record was generated, in whole or in part, using a voice recognition dictation system. PROCEDURE Procedure Patient poor IV access due to IVDA. At 0420 AM Right 18 guage EJ placed easily by myself (consent obtained from patient) using sterile technique. Departure Departure Impression: Primary Impression: DKA (diabetic ketoacidoses) Additional Impressions: IV drug user Dehydration Vomiting Disposition: ADMITTED INPATIENT Admitting Physician: Paty Taylor Condition: CRITICAL Referrals: ALBERTO MCCOY (PCP) Problem Qualifiers Primary Impression: DKA (diabetic ketoacidoses) Diabetes mellitus type: type 1 Diabetes mellitus complication detail: without coma Qualified Codes: E10.10 - Type 1 diabetes mellitus with ketoacidosis without coma Additional Impressions: Vomiting Vomiting type: unspecified Vomiting Intractability: intractable Nausea presence: with nausea Qualified Codes: R11.2 - Nausea with vomiting, unspecified LORY WELLS MD Mar 26, 2017 04:06
[2017-03-26] MEDS ORDERED: INSULIN REGULAR VIAL 150 UNIT in 0.9 % SODIUM CHLORIDE 150ML 150 ML IV PRN ×2 (04:15→07:30)
[2017-03-26] MEDS ORDERED: fentaNYL PF VIAL 100 MCG/2 ML VIAL IV PRN (04:15)
[2017-03-26] MEDS ORDERED: ONDANSETRON PF 4 MG/2 ML VIAL. IV PRN (04:15)
[2017-03-26] MEDS ORDERED: IV NORMAL SALINE 1000ML BAG 500 ML IV ONE (04:30)
[2017-03-26 05:20] LABS: PLT ESTIMATE INCREASED (ADEQUATE)
[2017-03-26] MEDS ORDERED: IV NORMAL SALINE 1000ML BAG 1,000 ML IV SCH ×2 (07:16→10:00)
[2017-03-26] MEDS ORDERED: IV DEXTROSE 5 %-0.45 % NACL 1,000 ML IV SCH (07:19)
[2017-03-26] MEDS ORDERED: IV DEXTROSE 5% - 0.9 % NACL 1,000 ML IV SCH (07:45)
[2017-03-26 08:53] LABS: MAGNESIUM 2.3 mg/dL (1.8-2.4); PHOSPHORUS 7.4 mg/dL (2.6-4.7)
[2017-03-26] MEDS ORDERED: TRAM50TA PO (09:17)
[2017-03-26] MEDS ORDERED: LOVA40TA2 PO (09:17)
[2017-03-26] MEDS ORDERED: QUET400T4 PO (09:17)
[2017-03-26] MEDS ORDERED: QUET200T4 PO (09:17)
[2017-03-26] MEDS ORDERED: AMIT25TA PO (09:17)
[2017-03-26] MEDS ORDERED: LURA40TA PO (09:17)
[2017-03-26] MEDS ORDERED: ESCITALOPRAM OX10 MG PO (09:17)
[2017-03-26] MEDS ORDERED: INSU100I27 SQ ×2 (09:17)
[2017-03-26] MEDS ORDERED: INSU100I17 SQ ×2 (09:17)
[2017-03-26] MEDS ORDERED: OMEP20CA9 PO (09:17)
[2017-03-26] MEDS ORDERED: DIAZEPAM10 MG PO (09:17)
[2017-03-26 10:08] LABS: CALCIUM 8.4 mg/dL (8.5-10.1); CREATININE 0.7 mg/dL (0.6-1.0); GFR 94.2
[2017-03-26] MEDS: IV DEXTROSE 5% - 0.9 % NACL 1,000 ML IV SCH ×2 (11:03→12:33)
--- NOTE | 2017-03-26 12:07 | PDOC1 ---
History and Physical Date of Admission Date of Admission DATE: 03/26/17 TIME: 12:06 Identification/Chief Complaint Chief Complaint Review of Systems Review of Systems Constitutional: Denies fever or chills Eyes: Denies change in visual acuity, redness, or eye pain HENT: Denies nasal congestion or sore throat Respiratory: Denies cough or shortness of breath Cardiovascular: No chest pain GI: POS abdominal pain, POS nausea and vomiting, NO bloody stools or diarrhea : Denies dysuria or hematuria Musculoskeletal: Denies back pain or joint pain Integument: Denies rash POS skin lesions from IV DA. Neurologic: Denies headache, focal weakness or sensory changes Endocrine: POS polyuria or polydipsia 14 pt ros were reviewed and found to be within normal limits, except as documented in this note. Problems: History of Present Illness History of Present Illness seen in er with dka,noncompliant with insulin for several days heavy IV drug user; smokes tobacco 1 ppd; smokes marijuana and shoots IV meth. She states she has not used her insulin for days. seen here March 20 when she left AMA after a several day binge of IV meth use. At that time her D stick was 180; hCG was negative. Past Medical History Cardiovascular: No pertinent hx Psych: Anxiety, Addictions, Bipolar, Other Rheumatologic: No pertinent hx Infectious disease: No pertinent hx Family History Family History: Diabetes, Family History Unknown Social History ALCOHOL: other Drugs: Crystal meth Current Problem List Problem List Problems Medical Problems: (1) Dehydration Status: Acute (2) IV drug user Status: Acute (3) Vomiting Status: Acute Problems: Current Medications Current Medications Current Medications Sodium Chloride 1,000 ml @ 1,000 mls/hr 1X ONCE IV Last administered on 03/26 03:30; Start 03/26/17 at 03:30; Stop 03/26/17 at 04:29; Status DC Ondansetron HCl (Zofran) 4 mg 1X ONCE IV Last administered on 03/26/17 03:30 ; Start 03/26/17 at 03:30; Stop 03/26/17 at 03:31; Status DC Metoclopramide HCl (Reglan Vial) 10 mg 1X ONCE IV Last administered on 03:30; Start 03/26/17 at 03:30; Stop 03/26/17 at 03:31; Status DC Insulin Human Regular 150 ml @ 0 mls/hr 1X ONCE IV Last administered on 03:46; Start 03/26/17 at 03:30; Stop 03/26/17 at 03:31; Status DC Fentanyl Citrate (Fentanyl 2ml Vial) 50 mcg 1X ONCE IV Last administered on 04:15; Start 03/26/17 at 04:00; Stop 03/26/17 at 04:01; Status DC Ondansetron HCl (Zofran) 4 mg PRN Q8HRS PRN IV NAUSEA/VOMITING; Start at 04:15; Stop 03/27/17 at 04:14 Fentanyl Citrate (Fentanyl 2ml Vial) 50 mcg PRN Q1HR PRN IV PAIN; Start at 04:15; Stop 03/27/17 at 04:14 Insulin Human Regular 150 unit/ Sodium Chloride 151.5 ml @ 0 mls/hr CONT PRN IV SEE I/O RECORD; Start 03/26/17 at 04:15; Stop 03/26/17 at 07:24; Status DC Sodium Chloride 1,000 ml @ 150 mls/hr 1X ONCE IV ; Start 03/26/17 at 04:15; Stop 03/26/17 at 10:54; Status DC Sodium Chloride 500 ml @ 500 mls/hr 1X ONCE IV Last administered on 05:00; Start 03/26/17 at 04:30; Stop 03/26/17 at 05:29; Status DC Sodium Chloride 1,000 ml @ 1,000 mls/hr Q1H IV Last administered on 07:28; Start 03/26/17 at 07:16; Stop 03/26/17 at 08:15; Status DC Dextrose/Sodium Chloride 1,000 ml @ 250 mls/hr Q4H IV ; Start 03/26/17 at 07: 19; Status Cancel Insulin Human Regular 150 unit/ Sodium Chloride 151.5 ml @ 0 mls/hr CONT PRN PRN IV PER PROTOCOL; Start 03/26/17 at 07:30 Dextrose/Sodium Chloride 1,000 ml @ 250 mls/hr Q4H IV Last administered on 07:46; Start 03/26/17 at 07:45; Stop 03/26/17 at 10:01; Status DC Sodium Chloride 1,000 ml @ 250 mls/hr Q4H IV Last administered on 03/26/17t 10:06; Start 03/26/17 at 10:00; Stop 03/26/17 at 11:02; Status DC Dextrose/Sodium Chloride 1,000 ml @ 250 mls/hr Q4H IV Last administered on t 11:03; Start 03/26/17 at 11:00 Active Scripts Active Reported Levemir Flextouch (Insulin Detemir) 100 Unit/1 Ml Insuln.pen 30 Unit SQ QHS Levemir Flextouch (Insulin Detemir) 100 Unit/1 Ml Insuln.pen 25 Unit SQ DAILY Novolog Flexpen (Insulin Aspart) 100 Unit/1 Ml Insuln.pen 15 Unit SQ BIDACLD Novolog Flexpen (Insulin Aspart) 100 Unit/1 Ml Insuln.pen 12 Unit SQ DAILYWBKFT Seroquel (Quetiapine Fumarate) 400 Mg Tablet 400 Mg PO HS Seroquel (Quetiapine Fumarate) 200 Mg Tablet 200 Mg PO DAILY Diazepam 10 Mg Tablet 10 Mg PO PRN BID PRN Escitalopram Oxalate 10 Mg Tablet 10 Mg PO DAILY Tramadol Hcl 50 Mg Tablet 50 Mg PO PRN Q6HRS PRN Latuda (Lurasidone Hcl) 40 Mg Tablet 40 Mg PO QPM Lovastatin 40 Mg Tablet 40 Mg PO DAILY Amitriptyline Hcl 25 Mg Tablet 25 Mg PO PRN QHS PRN Omeprazole 20 Mg Capsule.dr 20 Mg PO DAILY Depakote (Divalproex Sodium) 500 Mg Tablet.dr 1,000 Tab PO DAILY Allergies Allergies: Coded Allergies: No Known Drug Allergies (Unverified , 07/08/15) Physical Exam Physical Exam Physical Exam Physical Exam Constitutional: Well developed, well nourished, no acute distress, non-toxic appearance. HENT: Normocephalic, atraumatic, bilateral external ears normal, oropharynx dry , no oral exudates, nose normal. Eyes: PERRLA, EOMI, conjunctiva normal, no discharge. Neck: Normal range of motion, no tenderness, supple, no stridor. Cardiovascular:Heart rate regular rhythm, tachycardic no murmur Lungs & Thorax: Bilateral breath sounds clear to auscultation Abdomen: Bowel sounds normal, soft, no tenderness, no masses, no pulsatile masses. Skin: Warm, dry, no erythema, no rash. Multiple scars and needle tracks on bilateral arms. Back: No tenderness, no CVA tenderness. Extremities: No tenderness, no cyanosis, no clubbing, ROM intact, no edema. Neurologic: Alert and oriented X 3, normal motor function, normal sensory function, no focal deficits noted. Psychologic: Affect sad judgement poor mood flat. Vitals Vitals Vital Signs Date Time Temp Pulse Resp B/P (MAP) Pulse Ox O2 Delivery O2 Flow Rate FiO2 03/26/17 11:00 110 20 135/68 (90) 99 Room Air 03/26/17 07:20 98.5 98.5 Labs Labs Laboratory Tests Test 03/26/17 02:52 03/26/17 02:55 03/26/17 03:17 03/26/17 03:30 Glucose (Fingerstick) 486 mg/dL (70-99) Urine Collection Type Unknown Urine Color Yellow Urine Clarity Clear Urine pH 6.0 Urine Specific [place] 1.025 Urine Protein 30 mg/dL (NEG-TRACE) Urine Glucose (UA) >=1000 mg/dL (NEG) Urine Ketones (Stick) >=80 mg/dL (NEG) Urine Blood Negative (NEG) Urine Nitrite Negative (NEG) Urine Bilirubin Negative (NEG) Urine Urobilinogen Dipstick 0.2 mg/dL (0.2 mg/dL) Urine Leukocyte Esterase Negative (NEG) Urine RBC 0 /HPF (0-2) Urine WBC 0 /HPF (0-4) Urine Squamous Epithelial Cells Mod /LPF Urine Bacteria 0 /HPF (0-FEW) Urine Hyaline Casts Few /HPF Urine Mucus Slight /LPF Urine Opiates Screen Neg (NEG) Urine Methadone Screen Neg (NEG) Urine Barbiturates Neg (NEG) Urine Phencyclidine Screen Neg (NEG) Urine Amphetamine/Methamphetamine Neg (NEG) Urine Benzodiazepines Screen Pos (NEG) Urine Cocaine Screen Neg (NEG) Urine Cannabinoids Screen Neg (NEG) Urine Ethyl Alcohol Neg (NEG) Sodium Level 138 mmol/L (136-145) Potassium Level 5.8 mmol/L (3.5-5.1) Chloride Level 95 mmol/L (98-107) Carbon Dioxide Level 8 mmol/L (21-32) Anion Gap 35 (6-14) Blood Urea Nitrogen 19 mg/dL (7-20) Creatinine 1.0 mg/dL (0.6-1.0) Estimated GFR (Cockcroft-Gault) 62.4 BUN/Creatinine Ratio 19 (6-20) Glucose Level 499 mg/dL (70-99) Calcium Level 11.1 mg/dL (8.5-10.1) Total Bilirubin 0.5 mg/dL (0.2-1.0) Aspartate Amino Transf (AST/SGOT) 21 U/L (15-37) Alanine Aminotransferase (ALT/SGPT) 32 U/L (14-59) Alkaline Phosphatase 166 U/L (46-116) Total Protein 9.3 g/dL (6.4-8.2) Albumin 5.0 g/dL (3.4-5.0) Albumin/Globulin Ratio 1.2 (1.0-1.7) White Blood Count 20.0 x10^3/uL (4.0-11.0) Red Blood Count 5.65 x10^6/uL (3.50-5.40) Hemoglobin 16.9 g/dL (12.0-15.5) Hematocrit 53.8 % (36.0-47.0) Mean Corpuscular Volume 95 fL (79-100) Mean Corpuscular Hemoglobin 30 pg (25-35) Mean Corpuscular Hemoglobin Concent 32 g/dL (31-37) Red Cell Distribution Width 14.2 % (11.5-14.5) Platelet Count 520 x10^3/uL (140-400) Neutrophils (%) (Auto) 84 % (31-73) Lymphocytes (%) (Auto) 12 % (24-48) Monocytes (%) (Auto) 4 % (0-9) Eosinophils (%) (Auto) 0 % (0-3) Basophils (%) (Auto) 0 % (0-3) Neutrophils # (Auto) 16.8 x10^3uL (1.8-7.7) Lymphocytes # (Auto) 2.3 x10^3/uL (1.0-4.8) Monocytes # (Auto) 0.8 x10^3/uL (0.0-1.1) Eosinophils # (Auto) 0.0 x10^3/uL (0.0-0.7) Basophils # (Auto) 0.1 x10^3/uL (0.0-0.2) Segmented Neutrophils % 85 % (35-66) Lymphocytes % 9 % (24-48) Monocytes % 6 % (0-10) Platelet Estimate Increased (ADEQUATE) Phosphorus Level 7.4 mg/dL (2.6-4.7) Magnesium Level 2.3 mg/dL (1.8-2.4) Acetone Level Mod pos (NEG) Test 03/26/17 04:53 03/26/17 05:59 03/26/17 07:22 03/26/17 08:22 Glucose (Fingerstick) 359 mg/dL (70-99) 250 mg/dL (70-99) 245 mg/dL (70-99) 267 mg/dL (70-99) Test 03/26/17 09:30 03/26/17 09:50 03/26/17 10:28 03/26/17 11:34 Glucose (Fingerstick) 287 mg/dL (70-99) 213 mg/dL (70-99) 224 mg/dL (70-99) Sodium Level 143 mmol/L (136-145) Potassium Level 4.0 mmol/L (3.5-5.1) Chloride Level 112 mmol/L (98-107) Carbon Dioxide Level 13 mmol/L (21-32) Anion Gap 18 (6-14) Blood Urea Nitrogen 14 mg/dL (7-20) Creatinine 0.7 mg/dL (0.6-1.0) Estimated GFR (Cockcroft-Gault) 94.2 Glucose Level 276 mg/dL (70-99) Calcium Level 8.4 mg/dL (8.5-10.1) Laboratory Tests Test 03/26/17 02:52 03/26/17 02:55 03/26/17 03:17 03/26/17 03:30 Glucose (Fingerstick) 486 mg/dL (70-99) Urine Collection Type Unknown Urine Color Yellow Urine Clarity Clear Urine pH 6.0 Urine Specific [place] 1.025 Urine Protein 30 mg/dL (NEG-TRACE) Urine Glucose (UA) >=1000 mg/dL (NEG) Urine Ketones (Stick) >=80 mg/dL (NEG) Urine Blood Negative (NEG) Urine Nitrite Negative (NEG) Urine Bilirubin Negative (NEG) Urine Urobilinogen Dipstick 0.2 mg/dL (0.2 mg/dL) Urine Leukocyte Esterase Negative (NEG) Urine RBC 0 /HPF (0-2) Urine WBC 0 /HPF (0-4) Urine Squamous Epithelial Cells Mod /LPF Urine Bacteria 0 /HPF (0-FEW) Urine Hyaline Casts Few /HPF Urine Mucus Slight /LPF Urine Opiates Screen Neg (NEG) Urine Methadone Screen Neg (NEG) Urine Barbiturates Neg (NEG) Urine Phencyclidine Screen Neg (NEG) Urine Amphetamine/Methamphetamine Neg (NEG) Urine Benzodiazepines Screen Pos (NEG) Urine Cocaine Screen Neg (NEG) Urine Cannabinoids Screen Neg (NEG) Urine Ethyl Alcohol Neg (NEG) Sodium Level 138 mmol/L (136-145) Potassium Level 5.8 mmol/L (3.5-5.1) Chloride Level 95 mmol/L (98-107) Carbon Dioxide Level 8 mmol/L (21-32) Anion Gap 35 (6-14) Blood Urea Nitrogen 19 mg/dL (7-20) Creatinine 1.0 mg/dL (0.6-1.0) Estimated GFR (Cockcroft-Gault) 62.4 BUN/Creatinine Ratio 19 (6-20) Glucose Level 499 mg/dL (70-99) Calcium Level 11.1 mg/dL (8.5-10.1) Total Bilirubin 0.5 mg/dL (0.2-1.0) Aspartate Amino Transf (AST/SGOT) 21 U/L (15-37) Alanine Aminotransferase (ALT/SGPT) 32 U/L (14-59) Alkaline Phosphatase 166 U/L (46-116) Total Protein 9.3 g/dL (6.4-8.2) Albumin 5.0 g/dL (3.4-5.0) Albumin/Globulin Ratio 1.2 (1.0-1.7) White Blood Count 20.0 x10^3/uL (4.0-11.0) Red Blood Count 5.65 x10^6/uL (3.50-5.40) Hemoglobin 16.9 g/dL (12.0-15.5) Hematocrit 53.8 % (36.0-47.0) Mean Corpuscular Volume 95 fL (79-100) Mean Corpuscular Hemoglobin 30 pg (25-35) Mean Corpuscular Hemoglobin Concent 32 g/dL (31-37) Red Cell Distribution Width 14.2 % (11.5-14.5) Platelet Count 520 x10^3/uL (140-400) Neutrophils (%) (Auto) 84 % (31-73) Lymphocytes (%) (Auto) 12 % (24-48) Monocytes (%) (Auto) 4 % (0-9) Eosinophils (%) (Auto) 0 % (0-3) Basophils (%) (Auto) 0 % (0-3) Neutrophils # (Auto) 16.8 x10^3uL (1.8-7.7) Lymphocytes # (Auto) 2.3 x10^3/uL (1.0-4.8) Monocytes # (Auto) 0.8 x10^3/uL (0.0-1.1) Eosinophils # (Auto) 0.0 x10^3/uL (0.0-0.7) Basophils # (Auto) 0.1 x10^3/uL (0.0-0.2) Segmented Neutrophils % 85 % (35-66) Lymphocytes % 9 % (24-48) Monocytes % 6 % (0-10) Platelet Estimate Increased (ADEQUATE) Phosphorus Level 7.4 mg/dL (2.6-4.7) Magnesium Level 2.3 mg/dL (1.8-2.4) Acetone Level Mod pos (NEG) Test 03/26/17 04:53 03/26/17 05:59 03/26/17 07:22 03/26/17 08:22 Glucose (Fingerstick) 359 mg/dL (70-99) 250 mg/dL (70-99) 245 mg/dL (70-99) 267 mg/dL (70-99) Test 03/26/17 09:30 03/26/17 09:50 03/26/17 10:28 03/26/17 11:34 Glucose (Fingerstick) 287 mg/dL (70-99) 213 mg/dL (70-99) 224 mg/dL (70-99) Sodium Level 143 mmol/L (136-145) Potassium Level 4.0 mmol/L (3.5-5.1) Chloride Level 112 mmol/L (98-107) Carbon Dioxide Level 13 mmol/L (21-32) Anion Gap 18 (6-14) Blood Urea Nitrogen 14 mg/dL (7-20) Creatinine 0.7 mg/dL (0.6-1.0) Estimated GFR (Cockcroft-Gault) 94.2 Glucose Level 276 mg/dL (70-99) Calcium Level 8.4 mg/dL (8.5-10.1) VTE Prophylaxis Ordered VTE Prophylaxis Devices: No VTE Pharmacological Prophylaxi: Yes Assessment/Plan Assessment/Plan 1. diabetic ketoacidosis, in icu, on protocol, has not closed anion gap yet 2. hx meth use 3. hx noncompliance, longstanding 4. hx iv drug use by report 5, hx depression, bipolar illness plan continue iv insulin drip follow dka protocol lovenox dvt prophylaxis pt states sehe sees DR [facility]UN[facility], endo 35 min cc time RISA DAVALOS MD Mar 26, 2017 12:07
[2017-03-26 14:48] LABS: CALCIUM 8.5 mg/dL (8.5-10.1); CREATININE 0.6 mg/dL (0.6-1.0); GFR 112.5; MAGNESIUM 1.6 mg/dL (1.8-2.4); POTASSIUM 3.1 mmol/L (3.5-5.1)
[2017-03-26] MEDS ORDERED: SODIUM PHOSPHATE 20 MMOL in IV DEXTROSE 5% 250 ML IV PRN (15:00)
[2017-03-26] MEDS ORDERED: SODIUM PHOSPHATE 20 MMOL in IV DEXTROSE 5% 250 ML IV ONE (15:00)
[2017-03-26] MEDS ORDERED: MAGNESIUM SULFATE 4GM 100 ML IV SCH ×2 (15:00)
[2017-03-26] MEDS ORDERED: POTASSIUM CHLORIDE 20 MEQ TABLET.ER. PO ONE (15:15)
[2017-03-26] MEDS ORDERED: INSULIN DETEMIR 300 UNITS/3 ML INSULN.PEN. SQ ONE (15:30)
[2017-03-26] MEDS ORDERED: MAGNESIUM SULFATE 4GM 100 ML IV PRN (16:00)
[2017-03-26] MEDS: INSULIN ASPART 300 UNITS/3 ML INSULN.PEN SQ SCH ×2 (16:44→21:54)
--- NOTE | 2017-03-26 18:47 | PDOC ---
PROGRESS NOTES Vitals Vitals Vital Signs Date Time Temp Pulse Resp B/P (MAP) Pulse Ox O2 Delivery O2 Flow Rate FiO2 03/26/17 16:00 98.7 93 24 120/71 (87) 100 Room Air 98.7 Physical Exam Lungs: Clear Labs LABS addendum to icu results today, see h/p Laboratory Tests Test 03/26/17 02:52 03/26/17 02:55 03/26/17 03:17 03/26/17 03:30 Glucose (Fingerstick) 486 mg/dL (70-99) Urine Collection Type Unknown Urine Color Yellow Urine Clarity Clear Urine pH 6.0 Urine Specific [place] 1.025 Urine Protein 30 mg/dL (NEG-TRACE) Urine Glucose (UA) >=1000 mg/dL (NEG) Urine Ketones (Stick) >=80 mg/dL (NEG) Urine Blood Negative (NEG) Urine Nitrite Negative (NEG) Urine Bilirubin Negative (NEG) Urine Urobilinogen Dipstick 0.2 mg/dL (0.2 mg/dL) Urine Leukocyte Esterase Negative (NEG) Urine RBC 0 /HPF (0-2) Urine WBC 0 /HPF (0-4) Urine Squamous Epithelial Cells Mod /LPF Urine Bacteria 0 /HPF (0-FEW) Urine Hyaline Casts Few /HPF Urine Mucus Slight /LPF Urine Opiates Screen Neg (NEG) Urine Methadone Screen Neg (NEG) Urine Barbiturates Neg (NEG) Urine Phencyclidine Screen Neg (NEG) Urine Amphetamine/Methamphetamine Neg (NEG) Urine Benzodiazepines Screen Pos (NEG) Urine Cocaine Screen Neg (NEG) Urine Cannabinoids Screen Neg (NEG) Urine Ethyl Alcohol Neg (NEG) Sodium Level 138 mmol/L (136-145) Potassium Level 5.8 mmol/L (3.5-5.1) Chloride Level 95 mmol/L (98-107) Carbon Dioxide Level 8 mmol/L (21-32) Anion Gap 35 (6-14) Blood Urea Nitrogen 19 mg/dL (7-20) Creatinine 1.0 mg/dL (0.6-1.0) Estimated GFR (Cockcroft-Gault) 62.4 BUN/Creatinine Ratio 19 (6-20) Glucose Level 499 mg/dL (70-99) Calcium Level 11.1 mg/dL (8.5-10.1) Total Bilirubin 0.5 mg/dL (0.2-1.0) Aspartate Amino Transf (AST/SGOT) 21 U/L (15-37) Alanine Aminotransferase (ALT/SGPT) 32 U/L (14-59) Alkaline Phosphatase 166 U/L (46-116) Total Protein 9.3 g/dL (6.4-8.2) Albumin 5.0 g/dL (3.4-5.0) Albumin/Globulin Ratio 1.2 (1.0-1.7) White Blood Count 20.0 x10^3/uL (4.0-11.0) Red Blood Count 5.65 x10^6/uL (3.50-5.40) Hemoglobin 16.9 g/dL (12.0-15.5) Hematocrit 53.8 % (36.0-47.0) Mean Corpuscular Volume 95 fL (79-100) Mean Corpuscular Hemoglobin 30 pg (25-35) Mean Corpuscular Hemoglobin Concent 32 g/dL (31-37) Red Cell Distribution Width 14.2 % (11.5-14.5) Platelet Count 520 x10^3/uL (140-400) Neutrophils (%) (Auto) 84 % (31-73) Lymphocytes (%) (Auto) 12 % (24-48) Monocytes (%) (Auto) 4 % (0-9) Eosinophils (%) (Auto) 0 % (0-3) Basophils (%) (Auto) 0 % (0-3) Neutrophils # (Auto) 16.8 x10^3uL (1.8-7.7) Lymphocytes # (Auto) 2.3 x10^3/uL (1.0-4.8) Monocytes # (Auto) 0.8 x10^3/uL (0.0-1.1) Eosinophils # (Auto) 0.0 x10^3/uL (0.0-0.7) Basophils # (Auto) 0.1 x10^3/uL (0.0-0.2) Segmented Neutrophils % 85 % (35-66) Lymphocytes % 9 % (24-48) Monocytes % 6 % (0-10) Platelet Estimate Increased (ADEQUATE) Phosphorus Level 7.4 mg/dL (2.6-4.7) Magnesium Level 2.3 mg/dL (1.8-2.4) Acetone Level Mod pos (NEG) Test 03/26/17 04:53 03/26/17 05:59 03/26/17 07:22 03/26/17 07:50 Glucose (Fingerstick) 359 mg/dL (70-99) 250 mg/dL (70-99) 245 mg/dL (70-99) Nasal Screen MRSA (PCR) Negative (Negative) Test 03/26/17 08:22 03/26/17 09:30 03/26/17 09:50 03/26/17 10:28 Glucose (Fingerstick) 267 mg/dL (70-99) 287 mg/dL (70-99) 213 mg/dL (70-99) Sodium Level 143 mmol/L (136-145) Potassium Level 4.0 mmol/L (3.5-5.1) Chloride Level 112 mmol/L (98-107) Carbon Dioxide Level 13 mmol/L (21-32) Anion Gap 18 (6-14) Blood Urea Nitrogen 14 mg/dL (7-20) Creatinine 0.7 mg/dL (0.6-1.0) Estimated GFR (Cockcroft-Gault) 94.2 Glucose Level 276 mg/dL (70-99) Calcium Level 8.4 mg/dL (8.5-10.1) Test 03/26/17 11:34 03/26/17 12:29 03/26/17 13:30 03/26/17 14:00 Glucose (Fingerstick) 224 mg/dL (70-99) 198 mg/dL (70-99) 188 mg/dL (70-99) Sodium Level 144 mmol/L (136-145) Potassium Level 3.1 mmol/L (3.5-5.1) Chloride Level 113 mmol/L (98-107) Carbon Dioxide Level 18 mmol/L (21-32) Anion Gap 13 (6-14) Blood Urea Nitrogen 12 mg/dL (7-20) Creatinine 0.6 mg/dL (0.6-1.0) Estimated GFR (Cockcroft-Gault) 112.5 Glucose Level 165 mg/dL (70-99) Calcium Level 8.5 mg/dL (8.5-10.1) Phosphorus Level 2.0 mg/dL (2.6-4.7) Magnesium Level 1.6 mg/dL (1.8-2.4) Test 03/26/17 14:33 03/26/17 15:40 03/26/17 16:42 Glucose (Fingerstick) 160 mg/dL (70-99) 125 mg/dL (70-99) 200 mg/dL (70-99) Assessment and Plan Assessmemt and Plan Problems Medical Problems: (1) Dehydration Status: Acute (2) IV drug user Status: Acute (3) Vomiting Status: Acute Problems: Comment Review of Relevant I have reviewed the following items rosa (where applicable) has been applied. Labs Laboratory Tests Test 03/26/17 02:52 03/26/17 02:55 03/26/17 03:17 03/26/17 03:30 Glucose (Fingerstick) 486 mg/dL (70-99) Urine Collection Type Unknown Urine Color Yellow Urine Clarity Clear Urine pH 6.0 Urine Specific [place] 1.025 Urine Protein 30 mg/dL (NEG-TRACE) Urine Glucose (UA) >=1000 mg/dL (NEG) Urine Ketones (Stick) >=80 mg/dL (NEG) Urine Blood Negative (NEG) Urine Nitrite Negative (NEG) Urine Bilirubin Negative (NEG) Urine Urobilinogen Dipstick 0.2 mg/dL (0.2 mg/dL) Urine Leukocyte Esterase Negative (NEG) Urine RBC 0 /HPF (0-2) Urine WBC 0 /HPF (0-4) Urine Squamous Epithelial Cells Mod /LPF Urine Bacteria 0 /HPF (0-FEW) Urine Hyaline Casts Few /HPF Urine Mucus Slight /LPF Urine Opiates Screen Neg (NEG) Urine Methadone Screen Neg (NEG) Urine Barbiturates Neg (NEG) Urine Phencyclidine Screen Neg (NEG) Urine Amphetamine/Methamphetamine Neg (NEG) Urine Benzodiazepines Screen Pos (NEG) Urine Cocaine Screen Neg (NEG) Urine Cannabinoids Screen Neg (NEG) Urine Ethyl Alcohol Neg (NEG) Sodium Level 138 mmol/L (136-145) Potassium Level 5.8 mmol/L (3.5-5.1) Chloride Level 95 mmol/L (98-107) Carbon Dioxide Level 8 mmol/L (21-32) Anion Gap 35 (6-14) Blood Urea Nitrogen 19 mg/dL (7-20) Creatinine 1.0 mg/dL (0.6-1.0) Estimated GFR (Cockcroft-Gault) 62.4 BUN/Creatinine Ratio 19 (6-20) Glucose Level 499 mg/dL (70-99) Calcium Level 11.1 mg/dL (8.5-10.1) Total Bilirubin 0.5 mg/dL (0.2-1.0) Aspartate Amino Transf (AST/SGOT) 21 U/L (15-37) Alanine Aminotransferase (ALT/SGPT) 32 U/L (14-59) Alkaline Phosphatase 166 U/L (46-116) Total Protein 9.3 g/dL (6.4-8.2) Albumin 5.0 g/dL (3.4-5.0) Albumin/Globulin Ratio 1.2 (1.0-1.7) White Blood Count 20.0 x10^3/uL (4.0-11.0) Red Blood Count 5.65 x10^6/uL (3.50-5.40) Hemoglobin 16.9 g/dL (12.0-15.5) Hematocrit 53.8 % (36.0-47.0) Mean Corpuscular Volume 95 fL (79-100) Mean Corpuscular Hemoglobin 30 pg (25-35) Mean Corpuscular Hemoglobin Concent 32 g/dL (31-37) Red Cell Distribution Width 14.2 % (11.5-14.5) Platelet Count 520 x10^3/uL (140-400) Neutrophils (%) (Auto) 84 % (31-73) Lymphocytes (%) (Auto) 12 % (24-48) Monocytes (%) (Auto) 4 % (0-9) Eosinophils (%) (Auto) 0 % (0-3) Basophils (%) (Auto) 0 % (0-3) Neutrophils # (Auto) 16.8 x10^3uL (1.8-7.7) Lymphocytes # (Auto) 2.3 x10^3/uL (1.0-4.8) Monocytes # (Auto) 0.8 x10^3/uL (0.0-1.1) Eosinophils # (Auto) 0.0 x10^3/uL (0.0-0.7) Basophils # (Auto) 0.1 x10^3/uL (0.0-0.2) Segmented Neutrophils % 85 % (35-66) Lymphocytes % 9 % (24-48) Monocytes % 6 % (0-10) Platelet Estimate Increased (ADEQUATE) Phosphorus Level 7.4 mg/dL (2.6-4.7) Magnesium Level 2.3 mg/dL (1.8-2.4) Acetone Level Mod pos (NEG) Test 03/26/17 04:53 03/26/17 05:59 03/26/17 07:22 03/26/17 07:50 Glucose (Fingerstick) 359 mg/dL (70-99) 250 mg/dL (70-99) 245 mg/dL (70-99) Nasal Screen MRSA (PCR) Negative (Negative) Test 03/26/17 08:22 03/26/17 09:30 03/26/17 09:50 03/26/17 10:28 Glucose (Fingerstick) 267 mg/dL (70-99) 287 mg/dL (70-99) 213 mg/dL (70-99) Sodium Level 143 mmol/L (136-145) Potassium Level 4.0 mmol/L (3.5-5.1) Chloride Level 112 mmol/L (98-107) Carbon Dioxide Level 13 mmol/L (21-32) Anion Gap 18 (6-14) Blood Urea Nitrogen 14 mg/dL (7-20) Creatinine 0.7 mg/dL (0.6-1.0) Estimated GFR (Cockcroft-Gault) 94.2 Glucose Level 276 mg/dL (70-99) Calcium Level 8.4 mg/dL (8.5-10.1) Test 03/26/17 11:34 03/26/17 12:29 03/26/17 13:30 03/26/17 14:00 Glucose (Fingerstick) 224 mg/dL (70-99) 198 mg/dL (70-99) 188 mg/dL (70-99) Sodium Level 144 mmol/L (136-145) Potassium Level 3.1 mmol/L (3.5-5.1) Chloride Level 113 mmol/L (98-107) Carbon Dioxide Level 18 mmol/L (21-32) Anion Gap 13 (6-14) Blood Urea Nitrogen 12 mg/dL (7-20) Creatinine 0.6 mg/dL (0.6-1.0) Estimated GFR (Cockcroft-Gault) 112.5 Glucose Level 165 mg/dL (70-99) Calcium Level 8.5 mg/dL (8.5-10.1) Phosphorus Level 2.0 mg/dL (2.6-4.7) Magnesium Level 1.6 mg/dL (1.8-2.4) Test 03/26/17 14:33 03/26/17 15:40 03/26/17 16:42 Glucose (Fingerstick) 160 mg/dL (70-99) 125 mg/dL (70-99) 200 mg/dL (70-99) Laboratory Tests Test 03/26/17 02:52 03/26/17 02:55 03/26/17 03:17 03/26/17 03:30 Glucose (Fingerstick) 486 mg/dL (70-99) Urine Collection Type Unknown Urine Color Yellow Urine Clarity Clear Urine pH 6.0 Urine Specific [place] 1.025 Urine Protein 30 mg/dL (NEG-TRACE) Urine Glucose (UA) >=1000 mg/dL (NEG) Urine Ketones (Stick) >=80 mg/dL (NEG) Urine Blood Negative (NEG) Urine Nitrite Negative (NEG) Urine Bilirubin Negative (NEG) Urine Urobilinogen Dipstick 0.2 mg/dL (0.2 mg/dL) Urine Leukocyte Esterase Negative (NEG) Urine RBC 0 /HPF (0-2) Urine WBC 0 /HPF (0-4) Urine Squamous Epithelial Cells Mod /LPF Urine Bacteria 0 /HPF (0-FEW) Urine Hyaline Casts Few /HPF Urine Mucus Slight /LPF Urine Opiates Screen Neg (NEG) Urine Methadone Screen Neg (NEG) Urine Barbiturates Neg (NEG) Urine Phencyclidine Screen Neg (NEG) Urine Amphetamine/Methamphetamine Neg (NEG) Urine Benzodiazepines Screen Pos (NEG) Urine Cocaine Screen Neg (NEG) Urine Cannabinoids Screen Neg (NEG) Urine Ethyl Alcohol Neg (NEG) Sodium Level 138 mmol/L (136-145) Potassium Level 5.8 mmol/L (3.5-5.1) Chloride Level 95 mmol/L (98-107) Carbon Dioxide Level 8 mmol/L (21-32) Anion Gap 35 (6-14) Blood Urea Nitrogen 19 mg/dL (7-20) Creatinine 1.0 mg/dL (0.6-1.0) Estimated GFR (Cockcroft-Gault) 62.4 BUN/Creatinine Ratio 19 (6-20) Glucose Level 499 mg/dL (70-99) Calcium Level 11.1 mg/dL (8.5-10.1) Total Bilirubin 0.5 mg/dL (0.2-1.0) Aspartate Amino Transf (AST/SGOT) 21 U/L (15-37) Alanine Aminotransferase (ALT/SGPT) 32 U/L (14-59) Alkaline Phosphatase 166 U/L (46-116) Total Protein 9.3 g/dL (6.4-8.2) Albumin 5.0 g/dL (3.4-5.0) Albumin/Globulin Ratio 1.2 (1.0-1.7) White Blood Count 20.0 x10^3/uL (4.0-11.0) Red Blood Count 5.65 x10^6/uL (3.50-5.40) Hemoglobin 16.9 g/dL (12.0-15.5) Hematocrit 53.8 % (36.0-47.0) Mean Corpuscular Volume 95 fL (79-100) Mean Corpuscular Hemoglobin 30 pg (25-35) Mean Corpuscular Hemoglobin Concent 32 g/dL (31-37) Red Cell Distribution Width 14.2 % (11.5-14.5) Platelet Count 520 x10^3/uL (140-400) Neutrophils (%) (Auto) 84 % (31-73) Lymphocytes (%) (Auto) 12 % (24-48) Monocytes (%) (Auto) 4 % (0-9) Eosinophils (%) (Auto) 0 % (0-3) Basophils (%) (Auto) 0 % (0-3) Neutrophils # (Auto) 16.8 x10^3uL (1.8-7.7) Lymphocytes # (Auto) 2.3 x10^3/uL (1.0-4.8) Monocytes # (Auto) 0.8 x10^3/uL (0.0-1.1) Eosinophils # (Auto) 0.0 x10^3/uL (0.0-0.7) Basophils # (Auto) 0.1 x10^3/uL (0.0-0.2) Segmented Neutrophils % 85 % (35-66) Lymphocytes % 9 % (24-48) Monocytes % 6 % (0-10) Platelet Estimate Increased (ADEQUATE) Phosphorus Level 7.4 mg/dL (2.6-4.7) Magnesium Level 2.3 mg/dL (1.8-2.4) Acetone Level Mod pos (NEG) Test 03/26/17 04:53 03/26/17 05:59 03/26/17 07:22 03/26/17 07:50 Glucose (Fingerstick) 359 mg/dL (70-99) 250 mg/dL (70-99) 245 mg/dL (70-99) Nasal Screen MRSA (PCR) Negative (Negative) Test 03/26/17 08:22 03/26/17 09:30 03/26/17 09:50 03/26/17 10:28 Glucose (Fingerstick) 267 mg/dL (70-99) 287 mg/dL (70-99) 213 mg/dL (70-99) Sodium Level 143 mmol/L (136-145) Potassium Level 4.0 mmol/L (3.5-5.1) Chloride Level 112 mmol/L (98-107) Carbon Dioxide Level 13 mmol/L (21-32) Anion Gap 18 (6-14) Blood Urea Nitrogen 14 mg/dL (7-20) Creatinine 0.7 mg/dL (0.6-1.0) Estimated GFR (Cockcroft-Gault) 94.2 Glucose Level 276 mg/dL (70-99) Calcium Level 8.4 mg/dL (8.5-10.1) Test 03/26/17 11:34 03/26/17 12:29 03/26/17 13:30 03/26/17 14:00 Glucose (Fingerstick) 224 mg/dL (70-99) 198 mg/dL (70-99) 188 mg/dL (70-99) Sodium Level 144 mmol/L (136-145) Potassium Level 3.1 mmol/L (3.5-5.1) Chloride Level 113 mmol/L (98-107) Carbon Dioxide Level 18 mmol/L (21-32) Anion Gap 13 (6-14) Blood Urea Nitrogen 12 mg/dL (7-20) Creatinine 0.6 mg/dL (0.6-1.0) Estimated GFR (Cockcroft-Gault) 112.5 Glucose Level 165 mg/dL (70-99) Calcium Level 8.5 mg/dL (8.5-10.1) Phosphorus Level 2.0 mg/dL (2.6-4.7) Magnesium Level 1.6 mg/dL (1.8-2.4) Test 03/26/17 14:33 03/26/17 15:40 03/26/17 16:42 Glucose (Fingerstick) 160 mg/dL (70-99) 125 mg/dL (70-99) 200 mg/dL (70-99) Medications Current Medications Sodium Chloride 1,000 ml @ 1,000 mls/hr 1X ONCE IV Last administered on 03/26 03:30; Start 03/26/17 at 03:30; Stop 03/26/17 at 04:29; Status DC Ondansetron HCl (Zofran) 4 mg 1X ONCE IV Last administered on 03/26/17 03:30 ; Start 03/26/17 at 03:30; Stop 03/26/17 at 03:31; Status DC Metoclopramide HCl (Reglan Vial) 10 mg 1X ONCE IV Last administered on 03:30; Start 03/26/17 at 03:30; Stop 03/26/17 at 03:31; Status DC Insulin Human Regular 150 ml @ 0 mls/hr 1X ONCE IV Last administered on 03:46; Start 03/26/17 at 03:30; Stop 03/26/17 at 03:31; Status DC Fentanyl Citrate (Fentanyl 2ml Vial) 50 mcg 1X ONCE IV Last administered on 04:15; Start 03/26/17 at 04:00; Stop 03/26/17 at 04:01; Status DC Ondansetron HCl (Zofran) 4 mg PRN Q8HRS PRN IV NAUSEA/VOMITING; Start at 04:15; Stop 03/27/17 at 04:14 Fentanyl Citrate (Fentanyl 2ml Vial) 50 mcg PRN Q1HR PRN IV PAIN; Start at 04:15; Stop 03/27/17 at 04:14 Insulin Human Regular 150 unit/ Sodium Chloride 151.5 ml @ 0 mls/hr CONT PRN IV SEE I/O RECORD; Start 03/26/17 at 04:15; Stop 03/26/17 at 07:24; Status DC Sodium Chloride 1,000 ml @ 150 mls/hr 1X ONCE IV ; Start 03/26/17 at 04:15; Stop 03/26/17 at 10:54; Status DC Sodium Chloride 500 ml @ 500 mls/hr 1X ONCE IV Last administered on 05:00; Start 03/26/17 at 04:30; Stop 03/26/17 at 05:29; Status DC Sodium Chloride 1,000 ml @ 1,000 mls/hr Q1H IV Last administered on 07:28; Start 03/26/17 at 07:16; Stop 03/26/17 at 08:15; Status DC Dextrose/Sodium Chloride 1,000 ml @ 250 mls/hr Q4H IV ; Start 03/26/17 at 07: 19; Status Cancel Insulin Human Regular 150 unit/ Sodium Chloride 151.5 ml @ 0 mls/hr CONT PRN PRN IV PER PROTOCOL; Start 03/26/17 at 07:30 Dextrose/Sodium Chloride 1,000 ml @ 250 mls/hr Q4H IV Last administered on 07:46; Start 03/26/17 at 07:45; Stop 03/26/17 at 10:01; Status DC Sodium Chloride 1,000 ml @ 250 mls/hr Q4H IV Last administered on 03/26/17 10:06; Start 03/26/17 at 10:00; Stop 03/26/17 at 11:02; Status DC Dextrose/Sodium Chloride 1,000 ml @ 250 mls/hr Q4H IV Last administered on 12:33; Start 03/26/17 at 11:00; Stop 03/26/17 at 16:45; Status DC Magnesium Sulfate/ Dextrose 100 ml @ 25 mls/hr DAILY IV ; Start 03/26/17 at 15 :00; Stop 03/26/17 at 15:00; Status DC Sodium Phosphate 20 mmol/Dextrose 256.6667 ml @ 62.5 mls/hr 1X PRN PRN IV SEE COMMENTS; Start 03/26/17 at 15:00 Sodium Phosphate 20 mmol/Dextrose 256.6667 ml @ 62.5 mls/hr 1X ONCE IV Last administered on 03/26/17 15:56; Start 03/26/17 at 15:00; Stop 03/26/17 at 19 :06 Magnesium Sulfate/ Dextrose 100 ml @ 25 mls/hr PRN DAILY IV ; Start 03/26/17 at 15:00; Stop 03/26/17 at 15:51; Status DC Potassium Chloride (Klor-Con) 40 meq 1X ONCE PO Last administered on 15:57; Start 03/26/17 at 15:15; Stop 03/26/17 at 15:16; Status DC Insulin Aspart (NovoLOG) 0-9 UNITS [id number] SQ Last administered on 16:44; Start 03/26/17 at 17:00 Insulin Detemir (Levemir) 15 units 1X ONCE SQ Last administered on 03/26/17 15:59; Start 03/26/17 at 15:30; Stop 03/26/17 at 15:31; Status DC Insulin Detemir (Levemir) 25 units DAILY SQ ; Start 03/27/17 at 09:00 Insulin Detemir (Levemir) 30 units QHS SQ ; Start 03/26/17 at 21:00; Stop at 21:00; Status DC Magnesium Sulfate/ Dextrose 100 ml @ 25 mls/hr PRN DAILY PRN IV PER PROTOCOL Last administered on 03/26/17 15:55; Start 03/26/17 at 16:00 Insulin Detemir (Levemir) 30 units QHS SQ ; Start 03/27/17 at 21:00 Active Scripts Active Reported Levemir Flextouch (Insulin Detemir) 100 Unit/1 Ml Insuln.pen 30 Unit SQ QHS Levemir Flextouch (Insulin Detemir) 100 Unit/1 Ml Insuln.pen 25 Unit SQ DAILY Novolog Flexpen (Insulin Aspart) 100 Unit/1 Ml Insuln.pen 15 Unit SQ BIDACLD Novolog Flexpen (Insulin Aspart) 100 Unit/1 Ml Insuln.pen 12 Unit SQ [id number] Seroquel (Quetiapine Fumarate) 400 Mg Tablet 400 Mg PO HS Seroquel (Quetiapine Fumarate) 200 Mg Tablet 200 Mg PO DAILY Diazepam 10 Mg Tablet 10 Mg PO PRN BID PRN Escitalopram Oxalate 10 Mg Tablet 10 Mg PO DAILY Tramadol Hcl 50 Mg Tablet 50 Mg PO PRN Q6HRS PRN Latuda (Lurasidone Hcl) 40 Mg Tablet 40 Mg PO QPM Lovastatin 40 Mg Tablet 40 Mg PO DAILY Amitriptyline Hcl 25 Mg Tablet 25 Mg PO PRN QHS PRN Omeprazole 20 Mg Capsule.dr 20 Mg PO DAILY Depakote (Divalproex Sodium) 500 Mg Tablet. 1,000 Tab PO DAILY Vitals/I & O Vital Sign - Last 24 Hours 03/26/17 03/26/17 03/26/17 03/26/17 03:01 03:30 03:53 04:15 Temp 97.2 97.2 Pulse 124 118 118 Resp 16 24 B/P (MAP) 142/78 (99) 141/73 (95) 105/88 (94) Pulse Ox 100 100 100 O2 Delivery Room Air Room Air Room Air 03/26/17 03/26/17 03/26/17 03/26/17 04:23 04:53 05:23 05:53 Pulse 126 118 120 116 Resp 20 20 B/P (MAP) 124/75 (91) 140/65 (90) 145/80 (101) 136/82 (100) Pulse Ox 100 100 100 100 O2 Delivery Room Air Room Air Room Air Room Air 03/26/17 03/26/17 03/26/17 03/26/17 06:23 06:53 07:20 07:20 Temp 98.5 98.5 Pulse 112 114 116 Resp 20 21 B/P (MAP) 141/77 (98) 141/79 (99) 138/84 (102) Pulse Ox 100 100 100 O2 Delivery Room Air Room Air Room Air Room Air 03/26/17 03/26/17 03/26/17 03/26/17 07:30 08:00 09:00 10:00 Pulse 114 110 107 Resp 20 22 B/P (MAP) 129/72 (91) 124/63 (83) 133/60 (84) Pulse Ox 100 99 98 O2 Delivery Room Air Room Air Room Air Room Air 03/26/17 03/26/17 03/26/17 03/26/17 11:00 12:00 12:00 13:00 Temp 97.8 97.8 Pulse 110 109 112 Resp 20 23 B/P (MAP) 135/68 (90) 118/66 (83) 134/60 (84) Pulse Ox 99 100 98 O2 Delivery Room Air Room Air Room Air Room Air 03/26/17 03/26/17 03/26/17 14:00 15:00 16:00 Temp 98.7 98.7 Pulse 102 94 93 Resp 19 21 24 B/P (MAP) 127/61 (83) 132/71 (91) 120/71 (87) Pulse Ox 98 99 100 O2 Delivery Room Air Room Air Room Air RISA DAVALOS MD Mar 26, 2017 18:47
[2017-03-26] MEDS ORDERED: INSULIN DETEMIR 300 UNITS/3 ML INSULN.PEN. SQ SCH (21:00)
[2017-03-27 03:00] VITALS: BP 107/62
[2017-03-27 04:32] LABS: BASO # 0.1 x10^3/uL (0.0-0.2); BASO % 0 % (0-3); EOS % 1 % (0-3); HEMATOCRIT 35.6 % (36.0-47.0); HEMOGLOBIN 11.9 g/dL (12.0-15.5); LYMPH # 4.8 x10^3/uL (1.0-4.8); LYMPH % 35 % (24-48); MEAN CORPUSCULAR HEMOGLOBIN 30 pg (25-35); MEAN CORPUSCULAR HGB CONC 33 g/dL (31-37); MEAN CORPUSCULAR VOLUME 90 fL (79-100); MONO % 7 % (0-9); NEUT % 58 % (31-73); PLATELET COUNT 343 x10^3/uL (140-400); RED BLOOD COUNT 3.98 x10^6/uL (3.50-5.40); RED CELL DISTRIBUTION WIDTH 13.4 % (11.5-14.5)
[2017-03-27 04:55] LABS: CALCIUM 8.4 mg/dL (8.5-10.1); CREATININE 0.5 mg/dL (0.6-1.0); GFR 138.8
[2017-03-27 04:57] LABS: POTASSIUM 2.7 mmol/L (3.5-5.1)
[2017-03-27] MEDS ORDERED: POTASSIUM CHLORIDE 20 MEQ/15 ML ORAL LIQUID. PO ONE ×2 (05:30→08:00)
[2017-03-27] MEDS ORDERED: POTASSIUM CL 40MEQ IN 0.9%NACL 1,000 ML IV ONE (06:00)
[2017-03-27 07:00] VITALS: BP 90/43
[2017-03-27] MEDS: INSULIN ASPART 300 UNITS/3 ML INSULN.PEN SQ SCH ×6 (07:54→21:00)
[2017-03-27] MEDS ORDERED: ONDANSETRON ODT 4 MG TAB.RAPDIS. PO PRN (08:00)
[2017-03-27] MEDS ORDERED: AMITRIPTYLINE HCL 25 MG TABLET. PO PRN (08:00)
[2017-03-27] MEDS ORDERED: ONDANSETRON PF 4 MG/2 ML VIAL. IV PRN (08:00)
[2017-03-27] MEDS ORDERED: ACETAMINOPHEN 500 MG TABLET PO PRN (08:00)
[2017-03-27] MEDS ORDERED: diazePAM 5 MG TABLET PO PRN (08:00)
[2017-03-27] MEDS: PANTOPRAZOLE 40 MG TABLET.DR. PO SCH (08:57)
[2017-03-27] MEDS: QUEtiapine 100 MG TABLET. PO SCH (08:58)
[2017-03-27] MEDS: CITALOPRAM 20 MG TABLET. PO SCH (08:58)
[2017-03-27] MEDS: DIVALPROEX DELAYED RELEASE 500 MG TABLET.DR. PO SCH (08:58)
[2017-03-27] MEDS: HYDROcodone/APAP 10/325 1 TAB TABLET PO PRN ×3 (09:00→22:10)
--- NOTE | 2017-03-27 09:07 | PDOC ---
PROGRESS NOTES Chief Complaint Chief Complaint 1. s/p DKA 2. Type 1 DM uncontrolled hgba1c 9 ( 2 mos ago) 3. Critical hypokalemia 4. IV drug use History of Present Illness History of Present Illness GAp closed BS better Home regimen is novolog 12 breakfast, 15 lunch and dinner 25 levemir in AM and 30 qhs Hgba1c 9.6 2 mos ago Sees an endoc IV heroine and rec drug user CRitical K 2.4 today - got replacements by overnight MD PLAN: Recheck K later 1 pM Resume home regimen insulin Counselled on her insulin compliance and drug habits Ibuprofen for pain Vitals Vitals Vital Signs Date Time Temp Pulse Resp B/P (MAP) Pulse Ox O2 Delivery O2 Flow Rate FiO2 03/27/17 09:00 Room Air 03/27/17 07:00 95.4 70 20 90/43 (59) 96 95.4 Physical Exam General: Alert, Oriented X3, Cooperative Heart: Regular rate, Normal S1, Normal S2 Lungs: Clear Abdomen: Normal bowel sounds, Soft Extremities: No clubbing, No cyanosis Skin: No rashes, No breakdown Labs LABS Laboratory Tests Test 03/26/17 09:30 03/26/17 09:50 03/26/17 10:28 03/26/17 11:34 Glucose (Fingerstick) 287 mg/dL (70-99) 213 mg/dL (70-99) 224 mg/dL (70-99) Sodium Level 143 mmol/L (136-145) Potassium Level 4.0 mmol/L (3.5-5.1) Chloride Level 112 mmol/L (98-107) Carbon Dioxide Level 13 mmol/L (21-32) Anion Gap 18 (6-14) Blood Urea Nitrogen 14 mg/dL (7-20) Creatinine 0.7 mg/dL (0.6-1.0) Estimated GFR (Cockcroft-Gault) 94.2 Glucose Level 276 mg/dL (70-99) Calcium Level 8.4 mg/dL (8.5-10.1) Test 03/26/17 12:29 03/26/17 13:30 03/26/17 14:00 03/26/17 14:33 Glucose (Fingerstick) 198 mg/dL (70-99) 188 mg/dL (70-99) 160 mg/dL (70-99) Sodium Level 144 mmol/L (136-145) Potassium Level 3.1 mmol/L (3.5-5.1) Chloride Level 113 mmol/L (98-107) Carbon Dioxide Level 18 mmol/L (21-32) Anion Gap 13 (6-14) Blood Urea Nitrogen 12 mg/dL (7-20) Creatinine 0.6 mg/dL (0.6-1.0) Estimated GFR (Cockcroft-Gault) 112.5 Glucose Level 165 mg/dL (70-99) Calcium Level 8.5 mg/dL (8.5-10.1) Phosphorus Level 2.0 mg/dL (2.6-4.7) Magnesium Level 1.6 mg/dL (1.8-2.4) Test 03/26/17 15:40 03/26/17 16:42 03/26/17 20:32 03/27/17 03:38 Glucose (Fingerstick) 125 mg/dL (70-99) 200 mg/dL (70-99) 217 mg/dL (70-99) White Blood Count 14.0 x10^3/uL (4.0-11.0) Red Blood Count 3.98 x10^6/uL (3.50-5.40) Hemoglobin 11.9 g/dL (12.0-15.5) Hematocrit 35.6 % (36.0-47.0) Mean Corpuscular Volume 90 fL (79-100) Mean Corpuscular Hemoglobin 30 pg (25-35) Mean Corpuscular Hemoglobin Concent 33 g/dL (31-37) Red Cell Distribution Width 13.4 % (11.5-14.5) Platelet Count 343 x10^3/uL (140-400) Neutrophils (%) (Auto) 58 % (31-73) Lymphocytes (%) (Auto) 35 % (24-48) Monocytes (%) (Auto) 7 % (0-9) Eosinophils (%) (Auto) 1 % (0-3) Basophils (%) (Auto) 0 % (0-3) Neutrophils # (Auto) 8.1 x10^3uL (1.8-7.7) Lymphocytes # (Auto) 4.8 x10^3/uL (1.0-4.8) Monocytes # (Auto) 0.9 x10^3/uL (0.0-1.1) Eosinophils # (Auto) 0.1 x10^3/uL (0.0-0.7) Basophils # (Auto) 0.1 x10^3/uL (0.0-0.2) Sodium Level 142 mmol/L (136-145) Potassium Level 2.7 mmol/L (3.5-5.1) Chloride Level 108 mmol/L (98-107) Carbon Dioxide Level 25 mmol/L (21-32) Anion Gap 9 (6-14) Blood Urea Nitrogen 6 mg/dL (7-20) Creatinine 0.5 mg/dL (0.6-1.0) Estimated GFR (Cockcroft-Gault) 138.8 Glucose Level 130 mg/dL (70-99) Calcium Level 8.4 mg/dL (8.5-10.1) Review of Systems Review of Systems crampy legs, headache, no emsis, fever, cp or soa Assessment and Plan Assessmemt and Plan Problems Medical Problems: (1) Dehydration Status: Acute (2) IV drug user Status: Acute (3) Vomiting Status: Acute Problems: Comment Review of Relevant I have reviewed the following items rosa (where applicable) has been applied. Labs Laboratory Tests Test 03/26/17 02:52 03/26/17 02:55 03/26/17 03:17 03/26/17 03:30 Glucose (Fingerstick) 486 mg/dL (70-99) Urine Collection Type Unknown Urine Color Yellow Urine Clarity Clear Urine pH 6.0 Urine Specific [place] 1.025 Urine Protein 30 mg/dL (NEG-TRACE) Urine Glucose (UA) >=1000 mg/dL (NEG) Urine Ketones (Stick) >=80 mg/dL (NEG) Urine Blood Negative (NEG) Urine Nitrite Negative (NEG) Urine Bilirubin Negative (NEG) Urine Urobilinogen Dipstick 0.2 mg/dL (0.2 mg/dL) Urine Leukocyte Esterase Negative (NEG) Urine RBC 0 /HPF (0-2) Urine WBC 0 /HPF (0-4) Urine Squamous Epithelial Cells Mod /LPF Urine Bacteria 0 /HPF (0-FEW) Urine Hyaline Casts Few /HPF Urine Mucus Slight /LPF Urine Opiates Screen Neg (NEG) Urine Methadone Screen Neg (NEG) Urine Barbiturates Neg (NEG) Urine Phencyclidine Screen Neg (NEG) Urine Amphetamine/Methamphetamine Neg (NEG) Urine Benzodiazepines Screen Pos (NEG) Urine Cocaine Screen Neg (NEG) Urine Cannabinoids Screen Neg (NEG) Urine Ethyl Alcohol Neg (NEG) Sodium Level 138 mmol/L (136-145) Potassium Level 5.8 mmol/L (3.5-5.1) Chloride Level 95 mmol/L (98-107) Carbon Dioxide Level 8 mmol/L (21-32) Anion Gap 35 (6-14) Blood Urea Nitrogen 19 mg/dL (7-20) Creatinine 1.0 mg/dL (0.6-1.0) Estimated GFR (Cockcroft-Gault) 62.4 BUN/Creatinine Ratio 19 (6-20) Glucose Level 499 mg/dL (70-99) Calcium Level 11.1 mg/dL (8.5-10.1) Total Bilirubin 0.5 mg/dL (0.2-1.0) Aspartate Amino Transf (AST/SGOT) 21 U/L (15-37) Alanine Aminotransferase (ALT/SGPT) 32 U/L (14-59) Alkaline Phosphatase 166 U/L (46-116) Total Protein 9.3 g/dL (6.4-8.2) Albumin 5.0 g/dL (3.4-5.0) Albumin/Globulin Ratio 1.2 (1.0-1.7) White Blood Count 20.0 x10^3/uL (4.0-11.0) Red Blood Count 5.65 x10^6/uL (3.50-5.40) Hemoglobin 16.9 g/dL (12.0-15.5) Hematocrit 53.8 % (36.0-47.0) Mean Corpuscular Volume 95 fL (79-100) Mean Corpuscular Hemoglobin 30 pg (25-35) Mean Corpuscular Hemoglobin Concent 32 g/dL (31-37) Red Cell Distribution Width 14.2 % (11.5-14.5) Platelet Count 520 x10^3/uL (140-400) Neutrophils (%) (Auto) 84 % (31-73) Lymphocytes (%) (Auto) 12 % (24-48) Monocytes (%) (Auto) 4 % (0-9) Eosinophils (%) (Auto) 0 % (0-3) Basophils (%) (Auto) 0 % (0-3) Neutrophils # (Auto) 16.8 x10^3uL (1.8-7.7) Lymphocytes # (Auto) 2.3 x10^3/uL (1.0-4.8) Monocytes # (Auto) 0.8 x10^3/uL (0.0-1.1) Eosinophils # (Auto) 0.0 x10^3/uL (0.0-0.7) Basophils # (Auto) 0.1 x10^3/uL (0.0-0.2) Segmented Neutrophils % 85 % (35-66) Lymphocytes % 9 % (24-48) Monocytes % 6 % (0-10) Platelet Estimate Increased (ADEQUATE) Phosphorus Level 7.4 mg/dL (2.6-4.7) Magnesium Level 2.3 mg/dL (1.8-2.4) Acetone Level Mod pos (NEG) Test 03/26/17 04:53 03/26/17 05:59 03/26/17 07:22 03/26/17 07:50 Glucose (Fingerstick) 359 mg/dL (70-99) 250 mg/dL (70-99) 245 mg/dL (70-99) Nasal Screen MRSA (PCR) Negative (Negative) Test 03/26/17 08:22 03/26/17 09:30 03/26/17 09:50 03/26/17 10:28 Glucose (Fingerstick) 267 mg/dL (70-99) 287 mg/dL (70-99) 213 mg/dL (70-99) Sodium Level 143 mmol/L (136-145) Potassium Level 4.0 mmol/L (3.5-5.1) Chloride Level 112 mmol/L (98-107) Carbon Dioxide Level 13 mmol/L (21-32) Anion Gap 18 (6-14) Blood Urea Nitrogen 14 mg/dL (7-20) Creatinine 0.7 mg/dL (0.6-1.0) Estimated GFR (Cockcroft-Gault) 94.2 Glucose Level 276 mg/dL (70-99) Calcium Level 8.4 mg/dL (8.5-10.1) Test 03/26/17 11:34 03/26/17 12:29 03/26/17 13:30 03/26/17 14:00 Glucose (Fingerstick) 224 mg/dL (70-99) 198 mg/dL (70-99) 188 mg/dL (70-99) Sodium Level 144 mmol/L (136-145) Potassium Level 3.1 mmol/L (3.5-5.1) Chloride Level 113 mmol/L (98-107) Carbon Dioxide Level 18 mmol/L (21-32) Anion Gap 13 (6-14) Blood Urea Nitrogen 12 mg/dL (7-20) Creatinine 0.6 mg/dL (0.6-1.0) Estimated GFR (Cockcroft-Gault) 112.5 Glucose Level 165 mg/dL (70-99) Calcium Level 8.5 mg/dL (8.5-10.1) Phosphorus Level 2.0 mg/dL (2.6-4.7) Magnesium Level 1.6 mg/dL (1.8-2.4) Test 03/26/17 14:33 03/26/17 15:40 03/26/17 16:42 03/26/17 20:32 Glucose (Fingerstick) 160 mg/dL (70-99) 125 mg/dL (70-99) 200 mg/dL (70-99) 217 mg/dL (70-99) Test 03/27/17 03:38 White Blood Count 14.0 x10^3/uL (4.0-11.0) Red Blood Count 3.98 x10^6/uL (3.50-5.40) Hemoglobin 11.9 g/dL (12.0-15.5) Hematocrit 35.6 % (36.0-47.0) Mean Corpuscular Volume 90 fL (79-100) Mean Corpuscular Hemoglobin 30 pg (25-35) Mean Corpuscular Hemoglobin Concent 33 g/dL (31-37) Red Cell Distribution Width 13.4 % (11.5-14.5) Platelet Count 343 x10^3/uL (140-400) Neutrophils (%) (Auto) 58 % (31-73) Lymphocytes (%) (Auto) 35 % (24-48) Monocytes (%) (Auto) 7 % (0-9) Eosinophils (%) (Auto) 1 % (0-3) Basophils (%) (Auto) 0 % (0-3) Neutrophils # (Auto) 8.1 x10^3uL (1.8-7.7) Lymphocytes # (Auto) 4.8 x10^3/uL (1.0-4.8) Monocytes # (Auto) 0.9 x10^3/uL (0.0-1.1) Eosinophils # (Auto) 0.1 x10^3/uL (0.0-0.7) Basophils # (Auto) 0.1 x10^3/uL (0.0-0.2) Sodium Level 142 mmol/L (136-145) Potassium Level 2.7 mmol/L (3.5-5.1) Chloride Level 108 mmol/L (98-107) Carbon Dioxide Level 25 mmol/L (21-32) Anion Gap 9 (6-14) Blood Urea Nitrogen 6 mg/dL (7-20) Creatinine 0.5 mg/dL (0.6-1.0) Estimated GFR (Cockcroft-Gault) 138.8 Glucose Level 130 mg/dL (70-99) Calcium Level 8.4 mg/dL (8.5-10.1) Laboratory Tests Test 03/26/17 09:30 03/26/17 09:50 03/26/17 10:28 03/26/17 11:34 Glucose (Fingerstick) 287 mg/dL (70-99) 213 mg/dL (70-99) 224 mg/dL (70-99) Sodium Level 143 mmol/L (136-145) Potassium Level 4.0 mmol/L (3.5-5.1) Chloride Level 112 mmol/L (98-107) Carbon Dioxide Level 13 mmol/L (21-32) Anion Gap 18 (6-14) Blood Urea Nitrogen 14 mg/dL (7-20) Creatinine 0.7 mg/dL (0.6-1.0) Estimated GFR (Cockcroft-Gault) 94.2 Glucose Level 276 mg/dL (70-99) Calcium Level 8.4 mg/dL (8.5-10.1) Test 03/26/17 12:29 03/26/17 13:30 03/26/17 14:00 03/26/17 14:33 Glucose (Fingerstick) 198 mg/dL (70-99) 188 mg/dL (70-99) 160 mg/dL (70-99) Sodium Level 144 mmol/L (136-145) Potassium Level 3.1 mmol/L (3.5-5.1) Chloride Level 113 mmol/L (98-107) Carbon Dioxide Level 18 mmol/L (21-32) Anion Gap 13 (6-14) Blood Urea Nitrogen 12 mg/dL (7-20) Creatinine 0.6 mg/dL (0.6-1.0) Estimated GFR (Cockcroft-Gault) 112.5 Glucose Level 165 mg/dL (70-99) Calcium Level 8.5 mg/dL (8.5-10.1) Phosphorus Level 2.0 mg/dL (2.6-4.7) Magnesium Level 1.6 mg/dL (1.8-2.4) Test 03/26/17 15:40 03/26/17 16:42 03/26/17 20:32 03/27/17 03:38 Glucose (Fingerstick) 125 mg/dL (70-99) 200 mg/dL (70-99) 217 mg/dL (70-99) White Blood Count 14.0 x10^3/uL (4.0-11.0) Red Blood Count 3.98 x10^6/uL (3.50-5.40) Hemoglobin 11.9 g/dL (12.0-15.5) Hematocrit 35.6 % (36.0-47.0) Mean Corpuscular Volume 90 fL (79-100) Mean Corpuscular Hemoglobin 30 pg (25-35) Mean Corpuscular Hemoglobin Concent 33 g/dL (31-37) Red Cell Distribution Width 13.4 % (11.5-14.5) Platelet Count 343 x10^3/uL (140-400) Neutrophils (%) (Auto) 58 % (31-73) Lymphocytes (%) (Auto) 35 % (24-48) Monocytes (%) (Auto) 7 % (0-9) Eosinophils (%) (Auto) 1 % (0-3) Basophils (%) (Auto) 0 % (0-3) Neutrophils # (Auto) 8.1 x10^3uL (1.8-7.7) Lymphocytes # (Auto) 4.8 x10^3/uL (1.0-4.8) Monocytes # (Auto) 0.9 x10^3/uL (0.0-1.1) Eosinophils # (Auto) 0.1 x10^3/uL (0.0-0.7) Basophils # (Auto) 0.1 x10^3/uL (0.0-0.2) Sodium Level 142 mmol/L (136-145) Potassium Level 2.7 mmol/L (3.5-5.1) Chloride Level 108 mmol/L (98-107) Carbon Dioxide Level 25 mmol/L (21-32) Anion Gap 9 (6-14) Blood Urea Nitrogen 6 mg/dL (7-20) Creatinine 0.5 mg/dL (0.6-1.0) Estimated GFR (Cockcroft-Gault) 138.8 Glucose Level 130 mg/dL (70-99) Calcium Level 8.4 mg/dL (8.5-10.1) Medications Current Medications Sodium Chloride 1,000 ml @ 1,000 mls/hr 1X ONCE IV Last administered on 03/26 03:30; Start 03/26/17 at 03:30; Stop 03/26/17 at 04:29; Status DC Ondansetron HCl (Zofran) 4 mg 1X ONCE IV Last administered on 03/26/17 03:30 ; Start 03/26/17 at 03:30; Stop 03/26/17 at 03:31; Status DC Metoclopramide HCl (Reglan Vial) 10 mg 1X ONCE IV Last administered on 03:30; Start 03/26/17 at 03:30; Stop 03/26/17 at 03:31; Status DC Insulin Human Regular 150 ml @ 0 mls/hr 1X ONCE IV Last administered on 03:46; Start 03/26/17 at 03:30; Stop 03/26/17 at 03:31; Status DC Fentanyl Citrate (Fentanyl 2ml Vial) 50 mcg 1X ONCE IV Last administered on 04:15; Start 03/26/17 at 04:00; Stop 03/26/17 at 04:01; Status DC Ondansetron HCl (Zofran) 4 mg PRN Q8HRS PRN IV NAUSEA/VOMITING; Start at 04:15; Stop 03/27/17 at 04:14; Status DC Fentanyl Citrate (Fentanyl 2ml Vial) 50 mcg PRN Q1HR PRN IV PAIN; Start at 04:15; Stop 03/27/17 at 04:14; Status DC Insulin Human Regular 150 unit/ Sodium Chloride 151.5 ml @ 0 mls/hr CONT PRN IV SEE I/O RECORD; Start 03/26/17 at 04:15; Stop 03/26/17 at 07:24; Status DC Sodium Chloride 1,000 ml @ 150 mls/hr 1X ONCE IV ; Start 03/26/17 at 04:15; Stop 03/26/17 at 10:54; Status DC Sodium Chloride 500 ml @ 500 mls/hr 1X ONCE IV Last administered on 05:00; Start 03/26/17 at 04:30; Stop 03/26/17 at 05:29; Status DC Sodium Chloride 1,000 ml @ 1,000 mls/hr Q1H IV Last administered on 07:28; Start 03/26/17 at 07:16; Stop 03/26/17 at 08:15; Status DC Dextrose/Sodium Chloride 1,000 ml @ 250 mls/hr Q4H IV ; Start 03/26/17 at 07: 19; Status Cancel Insulin Human Regular 150 unit/ Sodium Chloride 151.5 ml @ 0 mls/hr CONT PRN PRN IV PER PROTOCOL; Start 03/26/17 at 07:30; Stop 03/27/17 at 07:57; Status DC Dextrose/Sodium Chloride 1,000 ml @ 250 mls/hr Q4H IV Last administered on 07:46; Start 03/26/17 at 07:45; Stop 03/26/17 at 10:01; Status DC Sodium Chloride 1,000 ml @ 250 mls/hr Q4H IV Last administered on 03/26/17 10:06; Start 03/26/17 at 10:00; Stop 03/26/17 at 11:02; Status DC Dextrose/Sodium Chloride 1,000 ml @ 250 mls/hr Q4H IV Last administered on 12:33; Start 03/26/17 at 11:00; Stop 03/26/17 at 16:45; Status DC Magnesium Sulfate/ Dextrose 100 ml @ 25 mls/hr DAILY IV ; Start 03/26/17 at 15 :00; Stop 03/26/17 at 15:00; Status DC Sodium Phosphate 20 mmol/Dextrose 256.6667 ml @ 62.5 mls/hr 1X PRN PRN IV SEE COMMENTS; Start 03/26/17 at 15:00 Sodium Phosphate 20 mmol/Dextrose 256.6667 ml @ 62.5 mls/hr 1X ONCE IV Last administered on 03/26/17 15:56; Start 03/26/17 at 15:00; Stop 03/26/17 at 19 :06; Status DC Magnesium Sulfate/ Dextrose 100 ml @ 25 mls/hr PRN DAILY IV ; Start 03/26/17 at 15:00; Stop 03/26/17 at 15:51; Status DC Potassium Chloride (Klor-Con) 40 meq 1X ONCE PO Last administered on 15:57; Start 03/26/17 at 15:15; Stop 03/26/17 at 15:16; Status DC Insulin Aspart (NovoLOG) 0-9 UNITS [id number] SQ Last administered on 21:54; Start 03/26/17 at 17:00 Insulin Detemir (Levemir) 15 units 1X ONCE SQ Last administered on 03/26/17 15:59; Start 03/26/17 at 15:30; Stop 03/26/17 at 15:31; Status DC Insulin Detemir (Levemir) 25 units DAILY SQ ; Start 03/27/17 at 09:00 Insulin Detemir (Levemir) 30 units QHS SQ ; Start 03/26/17 at 21:00; Stop at 21:00; Status DC Magnesium Sulfate/ Dextrose 100 ml @ 25 mls/hr PRN DAILY PRN IV PER PROTOCOL Last administered on 03/26/17 15:55; Start 03/26/17 at 16:00 Insulin Detemir (Levemir) 30 units QHS SQ ; Start 03/27/17 at 21:00 Potassium Chloride (KCl Oral Soln) 40 meq 1X ONCE PO Last administered on 05:43; Start 03/27/17 at 05:30; Stop 03/27/17 at 05:31; Status DC Potassium Chloride (KCl Oral Soln) 40 meq 1X ONCE PO Last administered on 08:57; Start 03/27/17 at 08:00; Stop 03/27/17 at 08:01; Status DC Potassium Chloride/Sodium Chloride 1,000 ml @ 125 mls/hr 1X ONCE IV Last administered on 03/27/17 05:44; Start 03/27/17 at 06:00; Stop 03/27/17 at 13 :59 Ondansetron HCl (Zofran) 4 mg PRN Q6HRS PRN IV NAUSEA/VOMITING; Start at 08:00 Ondansetron HCl (Zofran Odt) 4 mg PRN Q6HRS PRN PO NAUSEA/VOMITING; Start at 08:00 Acetaminophen (Tylenol) 500 mg PRN Q6HRS PRN PO MILD PAIN / TEMP; Start at 08:00 Acetaminophen/ Hydrocodone Bitart (Lortab 10/325) 1 tab PRN Q6HRS PRN PO PAIN Last administered on 03/27/17 09:00; Start 03/27/17 at 08:00 Amitriptyline HCl (Elavil) 25 mg PRN QHS PRN PO PAIN; Start 03/27/17 at 08:00 Divalproex Sodium (Depakote) 1,000 mg DAILY PO Last administered on 03/27/17 08:58; Start 03/27/17 at 09:00 Lurasidone HCl (Latuda) 40 mg QPM PO ; Start 03/27/17 at 18:00 Diazepam (Valium) 10 mg PRN BID PRN PO ANXIETY; Start 03/27/17 at 08:00 Citalopram Hydrobromide (CeleXA) 20 mg DAILY PO Last administered on 08:58; Start 03/27/17 at 09:00 Atorvastatin Calcium (Lipitor) 10 mg QHS PO ; Start 03/27/17 at 21:00 Pantoprazole Sodium (Protonix) 40 mg DAILYAC PO Last administered on 08:57; Start 03/27/17 at 09:00 Quetiapine Fumarate (SEROquel) 200 mg DAILY PO Last administered on 03/27/17 08:58; Start 03/27/17 at 09:00 Quetiapine Fumarate (SEROquel) 400 mg QHS PO ; Start 03/27/17 at 21:00 Insulin Aspart (NovoLOG) 12 units TIDAC SQ ; Start 03/27/17 at 11:30 Active Scripts Active Reported Levemir Flextouch (Insulin Detemir) 100 Unit/1 Ml Insuln.pen 30 Unit SQ QHS Levemir Flextouch (Insulin Detemir) 100 Unit/1 Ml Insuln.pen 25 Unit SQ DAILY Novolog Flexpen (Insulin Aspart) 100 Unit/1 Ml Insuln.pen 15 Unit SQ BIDACLD Novolog Flexpen (Insulin Aspart) 100 Unit/1 Ml Insuln.pen 12 Unit SQ [id number] Seroquel (Quetiapine Fumarate) 400 Mg Tablet 400 Mg PO HS Seroquel (Quetiapine Fumarate) 200 Mg Tablet 200 Mg PO DAILY Diazepam 10 Mg Tablet 10 Mg PO PRN BID PRN Escitalopram Oxalate 10 Mg Tablet 10 Mg PO DAILY Tramadol Hcl 50 Mg Tablet 50 Mg PO PRN Q6HRS PRN Latuda (Lurasidone Hcl) 40 Mg Tablet 40 Mg PO QPM Lovastatin 40 Mg Tablet 40 Mg PO DAILY Amitriptyline Hcl 25 Mg Tablet 25 Mg PO PRN QHS PRN Omeprazole 20 Mg Capsule. 20 Mg PO DAILY Depakote (Divalproex Sodium) 500 Mg Tablet. 1,000 Tab PO DAILY Vitals/I & O Vital Sign - Last 24 Hours 03/26/17 03/26/17 03/26/17 03/26/17 10:00 11:00 12:00 12:00 Temp 97.8 97.8 Pulse 107 110 109 Resp B/P (MAP) 133/60 (84) 135/68 (90) 118/66 (83) Pulse Ox 98 99 100 O2 Delivery Room Air Room Air Room Air Room Air 03/26/17 03/26/17 03/26/17 03/26/17 13:00 14:00 15:00 16:00 Temp 98.7 98.7 Pulse 112 102 94 93 Resp 24 B/P (MAP) 134/60 (84) 127/61 (83) 132/71 (91) 120/71 (87) Pulse Ox 98 98 99 100 O2 Delivery Room Air Room Air Room Air Room Air 03/26/17 03/26/17 03/26/17 03/27/17 19:00 20:00 23:00 03:00 Temp 96.9 97.9 97.5 96.9 97.9 97.5 Pulse 97 88 75 Resp 20 20 18 B/P (MAP) 111/49 (69) 112/60 (77) 107/62 (77) Pulse Ox 96 95 95 O2 Delivery Room Air Room Air Room Air Room Air 03/27/17 03/27/17 07:00 09:00 Temp 95.4 95.4 Pulse 70 Resp 20 B/P (MAP) 90/43 (59) Pulse Ox 96 O2 Delivery Room Air Room Air Intake and Output 03/26/17 03/26/17 03/27/17 15:00 23:00 07:00 Intake Total 2660.4 ml 1335.42 ml 650 ml Output Total 800 ml 850 ml Balance 1860.4 ml 485.42 ml 650 ml CISCO GARAY MD Mar 27, 2017 09:07
[2017-03-27] MEDS: INSULIN DETEMIR 300 UNITS/3 ML INSULN.PEN. SQ SCH (09:09)
[2017-03-27] MEDS ORDERED: IBUPROFEN 600 MG TABLET. PO PRN (09:15)
[2017-03-27 11:00] VITALS: BP 106/53
[2017-03-27 15:00] VITALS: BP 93/46
[2017-03-27] MEDS: LURASIDONE 40 MG TABLET. PO SCH (16:59)
[2017-03-27 19:28] VITALS: BP 92/55
[2017-03-27] MEDS ORDERED: INSULIN DETEMIR 300 UNITS/3 ML INSULN.PEN. SQ SCH (21:00)
[2017-03-27] MEDS ORDERED: ATORVASTATIN CALCIUM 10 MG TABLET. PO SCH (21:00)
[2017-03-27] MEDS ORDERED: QUEtiapine 100 MG TABLET. PO SCH (21:00)
[2017-03-27 23:18] VITALS: BP 93/55
[2017-03-28 03:11] VITALS: BP 97/63
[2017-03-28 07:00] VITALS: BP 107/56
[2017-03-28] MEDS: INSULIN ASPART 300 UNITS/3 ML INSULN.PEN SQ SCH ×6 (07:30→17:00)
[2017-03-28] MEDS: INSULIN DETEMIR 300 UNITS/3 ML INSULN.PEN. SQ SCH (08:18)
[2017-03-28] MEDS: CITALOPRAM 20 MG TABLET. PO SCH (08:19)
[2017-03-28] MEDS: PANTOPRAZOLE 40 MG TABLET.DR. PO SCH (08:19)
[2017-03-28] MEDS: DIVALPROEX DELAYED RELEASE 500 MG TABLET.DR. PO SCH (08:19)
[2017-03-28] MEDS: QUEtiapine 100 MG TABLET. PO SCH (08:26)
--- NOTE | 2017-03-28 10:06 | PDOC3 ---
Discharge Summary Visit Information Date of Admission: Mar 26, 2017 Date of Discharge: Mar 28, 2017 Admitting Diagnosis Comment: 1. s/p DKA 2. Type 1 DM uncontrolled hgba1c 9 ( 2 mos ago) 3. Critical hypokalemia 4. IV drug use Final Diagnosis Problems Medical Problems: (1) Dehydration Status: Acute (2) IV drug user Status: Acute (3) Vomiting Status: Acute Brief Hospital Course Allergies Allergies Coded Allergies Type Severity Reaction Last Updated Verified No Known Drug Allergies 07/08/15 No Vital Signs Vital Signs Date Time Temp Pulse Resp B/P (MAP) Pulse Ox O2 Delivery O2 Flow Rate FiO2 03/28/17 07:00 97.6 76 16 107/56 (73) 91 Room Air 97.6 Lab Results Laboratory Tests Test 03/26/17 10:28 03/26/17 11:34 03/26/17 12:29 03/26/17 13:30 Glucose (Fingerstick) 213 mg/dL (70-99) 224 mg/dL (70-99) 198 mg/dL (70-99) 188 mg/dL (70-99) Test 03/26/17 14:00 03/26/17 14:33 03/26/17 15:40 03/26/17 16:42 Sodium Level 144 mmol/L (136-145) Potassium Level 3.1 mmol/L (3.5-5.1) Chloride Level 113 mmol/L (98-107) Carbon Dioxide Level 18 mmol/L (21-32) Anion Gap 13 (6-14) Blood Urea Nitrogen 12 mg/dL (7-20) Creatinine 0.6 mg/dL (0.6-1.0) Estimated GFR (Cockcroft-Gault) 112.5 Glucose Level 165 mg/dL (70-99) Calcium Level 8.5 mg/dL (8.5-10.1) Phosphorus Level 2.0 mg/dL (2.6-4.7) Magnesium Level 1.6 mg/dL (1.8-2.4) Glucose (Fingerstick) 160 mg/dL (70-99) 125 mg/dL (70-99) 200 mg/dL (70-99) Test 03/26/17 20:32 03/27/17 03:38 03/27/17 07:39 03/27/17 11:34 Glucose (Fingerstick) 217 mg/dL (70-99) 149 mg/dL (70-99) 327 mg/dL (70-99) White Blood Count 14.0 x10^3/uL (4.0-11.0) Red Blood Count 3.98 x10^6/uL (3.50-5.40) Hemoglobin 11.9 g/dL (12.0-15.5) Hematocrit 35.6 % (36.0-47.0) Mean Corpuscular Volume 90 fL (79-100) Mean Corpuscular Hemoglobin 30 pg (25-35) Mean Corpuscular Hemoglobin Concent 33 g/dL (31-37) Red Cell Distribution Width 13.4 % (11.5-14.5) Platelet Count 343 x10^3/uL (140-400) Neutrophils (%) (Auto) 58 % (31-73) Lymphocytes (%) (Auto) 35 % (24-48) Monocytes (%) (Auto) 7 % (0-9) Eosinophils (%) (Auto) 1 % (0-3) Basophils (%) (Auto) 0 % (0-3) Neutrophils # (Auto) 8.1 x10^3uL (1.8-7.7) Lymphocytes # (Auto) 4.8 x10^3/uL (1.0-4.8) Monocytes # (Auto) 0.9 x10^3/uL (0.0-1.1) Eosinophils # (Auto) 0.1 x10^3/uL (0.0-0.7) Basophils # (Auto) 0.1 x10^3/uL (0.0-0.2) Sodium Level 142 mmol/L (136-145) Potassium Level 2.7 mmol/L (3.5-5.1) Chloride Level 108 mmol/L (98-107) Carbon Dioxide Level 25 mmol/L (21-32) Anion Gap 9 (6-14) Blood Urea Nitrogen 6 mg/dL (7-20) Creatinine 0.5 mg/dL (0.6-1.0) Estimated GFR (Cockcroft-Gault) 138.8 Glucose Level 130 mg/dL (70-99) Calcium Level 8.4 mg/dL (8.5-10.1) Test 03/27/17 12:59 03/27/17 16:31 03/27/17 20:26 03/27/17 21:17 Potassium Level 3.9 mmol/L (3.5-5.1) Glucose (Fingerstick) 259 mg/dL (70-99) 51 mg/dL (70-99) 114 mg/dL (70-99) Laboratory Tests Test 03/27/17 11:34 03/27/17 12:59 03/27/17 16:31 03/27/17 20:26 Glucose (Fingerstick) 327 mg/dL (70-99) 259 mg/dL (70-99) 51 mg/dL (70-99) Potassium Level 3.9 mmol/L (3.5-5.1) Test 03/27/17 21:17 Glucose (Fingerstick) 114 mg/dL (70-99) Brief Hospital Course Ms. Thakkar is a 36 old female, admitted for DKA, stayed overnight in ICU, She knows her insulin regimen and she did admit missing her doses. SHe also is a drug user, soem addictions and lots of meds for depression, narcs, anxiety as homne meds Pt seen and examined She is a longtime DM and knows what to do if she chooses to be compliant Scripts for accuchecks etc given to her Seen and examiend COnsults: none Discharge Information Condition at Discharge: Improved, Stable Disposition/Orders: D/C to Home Scheduled Divalproex Sodium (Depakote), 1,000 TAB PO DAILY, (Reported) Escitalopram Oxalate (Escitalopram Oxalate), 10 MG PO DAILY, (Reported) Insulin Aspart (Novolog Flexpen), 12 UNIT SQ DAILYWBKFT, (Reported) Insulin Aspart (Novolog Flexpen), 15 UNIT SQ BIDACLD, (Reported) Insulin Detemir (Levemir Flextouch), 25 UNIT SQ DAILY, (Reported) Insulin Detemir (Levemir Flextouch), 30 UNIT SQ QHS, (Reported) Lovastatin (Lovastatin), 40 MG PO DAILY, (Reported) Lurasidone Hcl (Latuda), 40 MG PO QPM, (Reported) Omeprazole (Omeprazole), 20 MG PO DAILY, (Reported) Quetiapine Fumarate (Seroquel), 200 MG PO DAILY, (Reported) Quetiapine Fumarate (Seroquel), 400 MG PO HS, (Reported) Scheduled PRN Amitriptyline Hcl (Amitriptyline Hcl), 25 MG PO PRN QHS PRN for PAIN, (Reported) Diazepam (Diazepam), 10 MG PO PRN BID PRN for ANXIETY, (Reported) Tramadol Hcl (Tramadol Hcl), 50 MG PO PRN Q6HRS PRN for PAIN, (Reported) Discontinued Medications Benzonatate (Tessalon Perle), 1 CAP PO TID PRN for prn, (Reported) Clonazepam (Klonopin), 1 MG PO DAILY, (Reported) CISCO GARAY MD Mar 28, 2017 10:06
[2017-03-28 10:45] VITALS: BP 123/80
[2017-03-28 15:11] VITALS: BP 120/67
[2017-03-28] MEDS: LURASIDONE 40 MG TABLET. PO SCH (18:00)
== END 2017-03-28 18:00 | disposition home or self-care (01) | DRG 638 ==
LOC: ER 02:41 → ED HOLD 04:00 → 1 WEST ICU 07:15 → 5 NORTH 18:10
PROVIDERS: ADMIT Internal Medicine; ATTEND Internal Medicine
DX: E10.10 Type 1 diabetes mellitus with ketoacidosis without coma (principal); R65.10 Systemic inflammatory response syndrome (SIRS) of non-infectious origin without acute organ dysfunction; E78.00 Pure hypercholesterolemia, unspecified; E87.6 Hypokalemia; F41.9 Anxiety disorder, unspecified; M79.7 Fibromyalgia; F17.210 Nicotine dependence, cigarettes, uncomplicated; F12.90 Cannabis use, unspecified, uncomplicated; F15.90 Other stimulant use, unspecified, uncomplicated; E86.0 Dehydration; F31.9 Bipolar disorder, unspecified; F19.90 Other psychoactive substance use, unspecified, uncomplicated; Z91.14 Patient's other noncompliance with medication regimen; Z91.19 Patient's noncompliance with other medical treatment and regimen; Z83.3 Family history of diabetes mellitus
CPT/HCPCS: 36415; 80048; 80053; 80307; 81001; 82010; 82962; 83735; 84100; 84132; 85007; 85025; 87641; 96374; 96375; J1815; J2405; J2765; J3010; J3475; J3480; J7030; J7042; 99291-25; G0479

== ENCOUNTER 2018-01-14 13:30 | Emergency (ER) | payer MEDICARE, MEDICAID ==
[~2018-01-14] VITALS: Ht 162.6 cm; Wt 60.8 kg
[~2018-01-14 13:30] MED LIST changes: +AMIT25TA PO; +DIAZEPAM10 MG PO; +ESCITALOPRAM OX10 MG PO; +INSU100I17 SQ; +INSU100I27 SQ; +LOVA40TA2 PO; +LURA40TA PO; -METF-620 PO; +METF10007 PO; +OMEP20CA9 PO; +QUET200T4 PO; +TRAM50TA PO
[2018-01-14 14:13] LABS: BASO # 0.1 x10^3/uL (0.0-0.2); BASO % 1 % (0-3); EOS # 0.1 x10^3/uL (0.0-0.7); EOS % 2 % (0-3); HEMATOCRIT 38.2 % (36.0-47.0); HEMOGLOBIN 13.1 g/dL (12.0-15.5); LYMPH % 49 % (24-48); MEAN CORPUSCULAR HEMOGLOBIN 30 pg (25-35); MEAN CORPUSCULAR HGB CONC 34 g/dL (31-37); MEAN CORPUSCULAR VOLUME 88 fL (79-100); MONO # 0.5 x10^3/uL (0.0-1.1); MONO % 7 % (0-9); NEUT # 3.4 x10^3uL (1.8-7.7); NEUT % 42 % (31-73); PLATELET COUNT 283 x10^3/uL (140-400); RED BLOOD COUNT 4.33 x10^6/uL (3.50-5.40); WHITE BLOOD COUNT 8.2 x10^3/uL (4.0-11.0)
[2018-01-14] MEDS ORDERED: ONDANSETRON PF 4 MG/2 ML VIAL. IV ONE (14:15)
[2018-01-14] MEDS ORDERED: IV NORMAL SALINE 1000ML BAG 1,000 ML IV ONE (14:15)
[2018-01-14 14:17] LABS: CALCIUM 8.8 mg/dL (8.5-10.1); CREATININE 0.5 mg/dL (0.6-1.0); GFR 138.1; POTASSIUM 3.4 mmol/L (3.5-5.1)
[2018-01-14 14:22] LABS: ALBUMIN 3.1 g/dL (3.4-5.0); ALBUMIN/GLOBULIN RATIO 0.9 (1.0-1.7); TOTAL BILIRUBIN 0.2 mg/dL (0.2-1.0); TOTAL PROTEIN 6.7 g/dL (6.4-8.2)
[2018-01-14 14:30] VITALS: BP 109/55
[2018-01-14] MEDS ORDERED: ONDA4TAB12 PO (14:49)
--- NOTE | 2018-01-14 14:50 | PHYS DOC ---
Past Medical History Past Medical History: Anxiety, Depression, Diabetes-Type I, Fibromyalgia, High Cholesterol Past Surgical History: Other Additional Past Surgical Histo: D&C x 2; endometriosis ablation; adenoidectomy Alcohol Use: Heavy Drug Use: Marijuana, Methamphetamine Social History Narrative: last use 4 days ago Adult General Chief Complaint Chief Complaint: NAUSEA/VOMITING/DIARRHA HPI HPI 37-year-old female presents with nausea and vomiting. She states she has been off meth for 5 days and is currently at [facility] but is been so nauseous that they sent her over here for evaluation. She states when she was in the middle of her meth abuse she did not eat for several days she is concerned about being dehydrated. She denies any pain. She's had no fever chills or sweats.[] Review of Systems Review of Systems Constitutional: Denies fever or chills [] Eyes: Denies change in visual acuity, redness, or eye pain [] HENT: Denies nasal congestion or sore throat [] Respiratory: Denies cough or shortness of breath [] Cardiovascular: No additional information not addressed in HPI [] GI: Per history of present illness[] : Denies dysuria or hematuria [] Musculoskeletal: Denies back pain or joint pain [] Integument: Denies rash or skin lesions [] Neurologic: Denies headache, focal weakness or sensory changes [] Endocrine: Denies polyuria or polydipsia [] All other systems were reviewed and found to be within normal limits, except as documented in this note. Current Medications Current Medications Current Medications Medications (Trade) Dose Ordered Sig/Adam Start Time Stop Time Status Last Admin Dose Admin Ondansetron HCl (Zofran) 4 mg 1X ONCE 01/14/18 14:15 01/14/18 14:16 DC 01/14/18 14:17 4 MG Sodium Chloride 1,000 ml @ 1,000 mls/hr 1X ONCE 01/14/18 14:15 01/14/18 15:14 01/14/18 14:17 1,000 MLS/HR Allergies Allergies Allergies Coded Allergies Type Severity Reaction Last Updated Verified No Known Drug Allergies 07/08/15 No Physical Exam Physical Exam Constitutional: Well developed, well nourished, no acute distress, non-toxic appearance. [] HENT: Normocephalic, atraumatic, bilateral external ears normal, oropharynx moist, no oral exudates, nose normal. [] Eyes: PERRLA, EOMI, conjunctiva normal, no discharge. [] Neck: Normal range of motion, no tenderness, supple, no stridor. [] Cardiovascular:Heart rate regular rhythm, no murmur [] Lungs & Thorax: Bilateral breath sounds clear to auscultation [] Abdomen: Bowel sounds normal, soft, no tenderness, no masses, no pulsatile masses. [] Skin: Warm, dry, no erythema, no rash. [] Back: No tenderness, no CVA tenderness. [] Extremities: No tenderness, no cyanosis, no clubbing, ROM intact, no edema. [] Neurologic: Alert and oriented X 3, normal motor function, normal sensory function, no focal deficits noted. [] Psychologic: Affect normal, judgement normal, mood normal. [] Current Patient Data Vital Signs Vital Signs Date Time Temp Pulse Resp B/P (MAP) Pulse Ox O2 Delivery O2 Flow Rate FiO2 01/14/18 14:00 98.3 75 15 117/85 (96) 99 Room Air 98.3 Lab Values Laboratory Tests Test 01/14/18 13:54 01/14/18 13:58 01/14/18 14:00 Glucose (Fingerstick) 107 mg/dL (70-99) H POC Urine HCG, Qualitative Hcg negative (Negative) White Blood Count 8.2 x10^3/uL (4.0-11.0) Red Blood Count 4.33 x10^6/uL (3.50-5.40) Hemoglobin 13.1 g/dL (12.0-15.5) Hematocrit 38.2 % (36.0-47.0) Mean Corpuscular Volume 88 fL (79-100) Mean Corpuscular Hemoglobin 30 pg (25-35) Mean Corpuscular Hemoglobin Concent 34 g/dL (31-37) Red Cell Distribution Width 13.0 % (11.5-14.5) Platelet Count 283 x10^3/uL (140-400) Neutrophils (%) (Auto) 42 % (31-73) Lymphocytes (%) (Auto) 49 % (24-48) H Monocytes (%) (Auto) 7 % (0-9) Eosinophils (%) (Auto) 2 % (0-3) Basophils (%) (Auto) 1 % (0-3) Neutrophils # (Auto) 3.4 x10^3uL (1.8-7.7) Lymphocytes # (Auto) 4.0 x10^3/uL (1.0-4.8) Monocytes # (Auto) 0.5 x10^3/uL (0.0-1.1) Eosinophils # (Auto) 0.1 x10^3/uL (0.0-0.7) Basophils # (Auto) 0.1 x10^3/uL (0.0-0.2) Sodium Level 143 mmol/L (136-145) Potassium Level 3.4 mmol/L (3.5-5.1) L Chloride Level 105 mmol/L (98-107) Carbon Dioxide Level 29 mmol/L (21-32) Anion Gap 9 (6-14) Blood Urea Nitrogen 11 mg/dL (7-20) Creatinine 0.5 mg/dL (0.6-1.0) L Estimated GFR (Cockcroft-Gault) 138.1 BUN/Creatinine Ratio 22 (6-20) H Glucose Level 105 mg/dL (70-99) H Calcium Level 8.8 mg/dL (8.5-10.1) Total Bilirubin 0.2 mg/dL (0.2-1.0) Aspartate Amino Transferase (AST) 13 U/L (15-37) L Alanine Aminotransferase (ALT) 21 U/L (14-59) Alkaline Phosphatase 92 U/L (46-116) Total Protein 6.7 g/dL (6.4-8.2) Albumin 3.1 g/dL (3.4-5.0) L Albumin/Globulin Ratio 0.9 (1.0-1.7) L Lipase 149 U/L (73-393) Laboratory Tests 01/14/18 14:00 Laboratory Tests 01/14/18 14:00 EKG EKG [] Radiology/Procedures Radiology/Procedures [] Course & Med Decision Making Course & Med Decision Making Pertinent Labs and Imaging studies reviewed. (See chart for details) [ED course: Evaluation reveals a 37-year-old female with nausea. She was given IV fluids and Zofran with near complete resolution of her symptoms. Patient is safe for discharge home] Dragon Disclaimer Dragon Disclaimer This electronic medical record was generated, in whole or in part, using a voice recognition dictation system. Departure Departure Impression: Primary Impression: Nausea and vomiting Disposition: 01 HOME, SELF-CARE Condition: IMPROVED Referrals: NO PCP (PCP) Patient Instructions: Nausea and Vomiting Scripts Ondansetron (ONDANSETRON ODT) 4 Mg Tab.rapdis 1 TAB PO PRN Q6-8HRS for VOMITING, #16 TAB Prov: MAXIME LOBMARDI DO 01/14/18 Problem Qualifiers Primary Impression: Nausea and vomiting Vomiting type: unspecified Vomiting Intractability: unspecified Qualified Codes: R11.2 - Nausea with vomiting, unspecified MAXIME LOMBARDI DO Jan 14, 2018 14:50
== END 2018-01-14 14:53 | disposition home or self-care (01) ==
LOC: ER 13:30
DX: R11.2 Nausea with vomiting, unspecified (principal); E86.0 Dehydration; E10.9 Type 1 diabetes mellitus without complications; E78.00 Pure hypercholesterolemia, unspecified; F15.10 Other stimulant abuse, uncomplicated
CPT/HCPCS: 36415; 80053; 81025; 82962; 83690; 85025; 96374; 99284; J2405; J7030

== ENCOUNTER 2018-01-24 19:16 | Observation (INO) | payer MEDICARE, MEDICAID ==
[~2018-01-24] VITALS: Ht 165.1 cm; Wt 62.9 kg
[~2018-01-24 19:16] MED LIST changes: +ONDA4TAB12 PO
[2018-01-24] MEDS ORDERED: IV NORMAL SALINE 1000ML BAG 1,000 ML IV ONE (19:45)
[2018-01-24 19:51] LABS: BASO # 0.1 x10^3/uL (0.0-0.2); BASO % 1 % (0-3); EOS # 0.2 x10^3/uL (0.0-0.7); EOS % 1 % (0-3); HEMATOCRIT 39.5 % (36.0-47.0); HEMOGLOBIN 13.8 g/dL (12.0-15.5); LYMPH # 4.6 x10^3/uL (1.0-4.8); LYMPH % 29 % (24-48); MEAN CORPUSCULAR HEMOGLOBIN 30 pg (25-35); MEAN CORPUSCULAR HGB CONC 35 g/dL (31-37); MEAN CORPUSCULAR VOLUME 87 fL (79-100); MONO # 1.4 x10^3/uL (0.0-1.1); MONO % 9 % (0-9); NEUT # 9.5 x10^3uL (1.8-7.7); NEUT % 60 % (31-73); PLATELET COUNT 298 x10^3/uL (140-400); RED BLOOD COUNT 4.55 x10^6/uL (3.50-5.40); WHITE BLOOD COUNT 15.7 x10^3/uL (4.0-11.0)
[2018-01-24 19:53] LABS: BILIRUBIN,URINE NEGATIVE (NEG); CLARITY,URINE CLEAR; COLOR,URINE YELLOW; NITRITE,URINE NEGATIVE (NEG); PROTEIN,URINE NEGATIVE (NEG-TRACE); UROBILINOGEN,URINE 0.2 mg/dL (0.2 mg/dL)
[2018-01-24 20:02] LABS: AMPHETAMINE/METHAMPHETAMINE POS (NEG); BACTERIA,URINE FEW /HPF (0-FEW); BARBITURATES NEG (NEG); BENZODIAZEPINES NEG (NEG); CANNABINOIDS NEG (NEG); COCAINE NEG (NEG); METHADONE NEG (NEG); OPIATES NEG (NEG); PHENCYCLIDINE NEG (NEG); RBC,URINE 0 /HPF (0-2); SQUAMOUS EPITHELIAL CELL,UR FEW /LPF
[2018-01-24 20:03] LABS: CALCIUM 9.7 mg/dL (8.5-10.1); CREATININE 0.5 mg/dL (0.6-1.0); GFR 138.1; POTASSIUM 3.8 mmol/L (3.5-5.1)
[2018-01-24 20:08] LABS: TOTAL BILIRUBIN 0.3 mg/dL (0.2-1.0)
[2018-01-24 20:10] LABS: ACETAMIN < 2 mcg/ml (10-30); ETHANOL < 10 mg/dL (0-10); SALIC 4.7 mg/dL (2.8-20.0)
--- NOTE | 2018-01-24 21:35 | RAD ---
EXAM: CHEST AP ONLY DATE: 01/24/2018 9:03 PM INDICATION: pt unresponsive altered mental status COMPARISON: No Prior FINDINGS: The heart is not enlarged. Mediastinal and hilar contours are normal. No focal parenchymal airspace opacity. No pleural effusion or pneumothorax. IMPRESSION: 1. No radiographic evidence for acute cardiopulmonary process. Electronically signed by: Cachorro Watts MD (01/24/2018 9:31 PM) [facility]
--- NOTE | 2018-01-24 22:00 | PHYS DOC ---
Past Medical History Past Medical History: Bipolar Additional Past Medical Histor: drug abuse Past Surgical History: Other Additional Past Surgical Histo: D&C x 2; endometriosis ablation; adenoidectomy Alcohol Use: Occasionally Drug Use: Amphetamine, Marijuana Adult General Chief Complaint Chief Complaint: MEDICAL CLEARANCE HPI HPI Patient is a 37 year old female who presents with requesting help with methamphetamine addiction. The patient states that she would like to be placed in a rehabilitation facility. Shortly after the patient arrived in the emergency department she became extremely sleepy. She did verbalize that someone gave her for Seroquel. She does not know the dosage of the medication. She is arousable but is not answering questions. Review of Systems Review of Systems Unable to obtain due to patient's condition Current Medications Current Medications Current Medications Medications (Trade) Dose Ordered Sig/Adam Start Time Stop Time Status Last Admin Dose Admin Sodium Chloride 1,000 ml @ 1,000 mls/hr 1X ONCE 01/24/18 19:45 01/24/18 20:45 DC 01/24/18 20:02 1,000 MLS/HR Allergies Allergies Allergies Coded Allergies Type Severity Reaction Last Updated Verified No Known Drug Allergies 07/08/15 No Physical Exam Physical Exam Constitutional: Well developed, well nourished, no acute distress, non-toxic appearance. [] HENT: Normocephalic, atraumatic, bilateral external ears normal, oropharynx moist, no oral exudates, nose normal. [] Eyes: PERRLA, EOMI, conjunctiva normal, no discharge. [] Neck: Normal range of motion, no tenderness, supple, no stridor. [] Cardiovascular:Heart rate regular rhythm, no murmur [] Lungs & Thorax: Bilateral breath sounds clear to auscultation, cough noted [] Abdomen: Bowel sounds normal, soft, no tenderness, no masses, no pulsatile masses. [] Skin: Warm, dry, no erythema, no rash. [] Current Patient Data Vital Signs Vital Signs Date Time Temp Pulse Resp B/P (MAP) Pulse Ox O2 Delivery O2 Flow Rate FiO2 01/24/18 22:00 81 18 128/87 (101) 98 Room Air 01/24/18 19:21 98.4 98.4 Lab Values Laboratory Tests Test 01/24/18 19:20 01/24/18 19:40 POC Urine HCG, Qualitative Hcg negative (Negative) White Blood Count 15.7 x10^3/uL (4.0-11.0) H Red Blood Count 4.55 x10^6/uL (3.50-5.40) Hemoglobin 13.8 g/dL (12.0-15.5) Hematocrit 39.5 % (36.0-47.0) Mean Corpuscular Volume 87 fL (79-100) Mean Corpuscular Hemoglobin 30 pg (25-35) Mean Corpuscular Hemoglobin Concent 35 g/dL (31-37) Red Cell Distribution Width 13.0 % (11.5-14.5) Platelet Count 298 x10^3/uL (140-400) Neutrophils (%) (Auto) 60 % (31-73) Lymphocytes (%) (Auto) 29 % (24-48) Monocytes (%) (Auto) 9 % (0-9) Eosinophils (%) (Auto) 1 % (0-3) Basophils (%) (Auto) 1 % (0-3) Neutrophils # (Auto) 9.5 x10^3uL (1.8-7.7) H Lymphocytes # (Auto) 4.6 x10^3/uL (1.0-4.8) Monocytes # (Auto) 1.4 x10^3/uL (0.0-1.1) H Eosinophils # (Auto) 0.2 x10^3/uL (0.0-0.7) Basophils # (Auto) 0.1 x10^3/uL (0.0-0.2) Urine Collection Type Void Urine Color Yellow Urine Clarity Clear Urine pH 6.0 Urine Specific [place] >=1.030 Urine Protein Negative mg/dL (NEG-TRACE) Urine Glucose (UA) >=1000 mg/dL (NEG) Urine Ketones (Stick) 15 mg/dL (NEG) Urine Blood Negative (NEG) Urine Nitrite Negative (NEG) Urine Bilirubin Negative (NEG) Urine Urobilinogen Dipstick 0.2 mg/dL (0.2 mg/dL) Urine Leukocyte Esterase Negative (NEG) Urine RBC 0 /HPF (0-2) Urine WBC 1-4 /HPF (0-4) Urine Squamous Epithelial Cells Few /LPF Urine Bacteria Few /HPF (0-FEW) Sodium Level 138 mmol/L (136-145) Potassium Level 3.8 mmol/L (3.5-5.1) Chloride Level 98 mmol/L (98-107) Carbon Dioxide Level 28 mmol/L (21-32) Anion Gap 12 (6-14) Blood Urea Nitrogen 16 mg/dL (7-20) Creatinine 0.5 mg/dL (0.6-1.0) L Estimated GFR (Cockcroft-Gault) 138.1 BUN/Creatinine Ratio 32 (6-20) H Glucose Level 189 mg/dL (70-99) H Calcium Level 9.7 mg/dL (8.5-10.1) Total Bilirubin 0.3 mg/dL (0.2-1.0) Aspartate Amino Transferase (AST) 18 U/L (15-37) Alanine Aminotransferase (ALT) 25 U/L (14-59) Alkaline Phosphatase 115 U/L (46-116) Total Protein 8.0 g/dL (6.4-8.2) Albumin 4.0 g/dL (3.4-5.0) Albumin/Globulin Ratio 1.0 (1.0-1.7) Salicylates Level 4.7 mg/dL (2.8-20.0) Salicylate Last Dose Date Unknown Salicylate Last Dose Time Unknown Urine Opiates Screen Neg (NEG) Urine Methadone Screen Neg (NEG) Acetaminophen Level < 2 mcg/ml (10-30) L Acetaminophen Last Dose Date Unknown Acetaminophen Last Dose Time Unknown Urine Barbiturates Neg (NEG) Urine Phencyclidine Screen Neg (NEG) Urine Amphetamine/Methamphetamine Pos (NEG) Urine Benzodiazepines Screen Neg (NEG) Urine Cocaine Screen Neg (NEG) Urine Cannabinoids Screen Neg (NEG) Ethyl Alcohol Level < 10 mg/dL (0-10) Urine Ethyl Alcohol Neg (NEG) Laboratory Tests 01/24/18 19:40 Laboratory Tests 01/24/18 19:40 EKG EKG [] Radiology/Procedures Radiology/Procedures [] PATIENT: VERONICA LIM ACCOUNT: [id number] : 1980 LOCATION: ER AGE: 37 SEX: F EXAM STATUS: REG ER ORD. PHYSICIAN: LEONORA SCHMIDT APRN REASON: cough PROCEDURE: CHEST AP ONLY EXAM: CHEST AP ONLY DATE: 01/24/2018 9:03 PM INDICATION: pt unresponsive altered mental status COMPARISON: No Prior FINDINGS: The heart is not enlarged. Mediastinal and hilar contours are normal. No focal parenchymal airspace opacity. No pleural effusion or pneumothorax. IMPRESSION: 1. No radiographic evidence for acute cardiopulmonary process. Electronically signed by: Cachorro Barnes MD (01/24/2018 9:31 PM) [facility] DICTATED and SIGNED BY: CACHORRO BARNES MD DATE: 01/24/182130 Course & Med Decision Making Course & Med Decision Making Pertinent Labs and Imaging studies reviewed. (See chart for details) []The patient is sleeping but arousable. She is being admitted to Dr. Pineda's service. The psychiatric assessment team has a consult placed for tomorrow. Dragon Disclaimer Dragon Disclaimer This electronic medical record was generated, in whole or in part, using a voice recognition dictation system. Departure Departure Impression: Primary Impression: Drug ingestion Additional Impression: Methamphetamine abuse Disposition: ADMITTED INPATIENT Admitting Physician: Rita Pineda Condition: GOOD Referrals: NO PCP (PCP) Attending Signature Attending Signature I have reviewed the PA/[employer]'s note and plan of care. I was available for consultation as needed during the patient's visit in the emergency department. I agree with the clinical impression, plan, and disposition. Problem Qualifiers LEONORA SCHMIDT APRN Jan 24, 2018 22:00 JASON CHANEY DO Jan 25, 2018 04:00
[2018-01-24] MEDS ORDERED: ACETAMINOPHEN 325 MG TABLET. PO PRN (22:15)
[2018-01-24] MEDS ORDERED: ONDANSETRON PF 4 MG/2 ML VIAL. IV PRN (22:15)
[2018-01-24] MEDS: IV NORMAL SALINE 1000ML BAG 1,000 ML IV SCH (22:15)
--- NOTE | 2018-01-24 23:12 | PDOC1 ---
History and Physical Date of Admission Date of Admission DATE: 01/24/18 TIME: 23:09 Source Source: Chart review, Patient History of Present Illness History of Present Illness per the ER report, Ms. Thakkar is a 37 year old female; requested help with methamphetamine addiction. she reported to take 4 seroquel to sleep off the detox, but she could not tell us the dose, the may have taken 800mg total. She would like to be placed in a rehabilitation facility. Past Medical History Cardiovascular: No pertinent hx Psych: Anxiety, Addictions, Bipolar, Other Rheumatologic: No pertinent hx Infectious disease: No pertinent hx Family History Family History: Diabetes, Family History Unknown Social History Smoke: # pack years ALCOHOL: other Drugs: Crystal meth Current Medications Current Medications Current Medications Sodium Chloride 1,000 ml @ 1,000 mls/hr 1X ONCE IV Last administered on at 20:02; Start 01/24/18 at 19:45; Stop 01/24/18 at 20:45; Status DC Ondansetron HCl (Zofran) 4 mg PRN Q8HRS PRN IV NAUSEA/VOMITING; Start 01/24/18 at 22:15; Stop 01/25/18 at 22:14 Sodium Chloride 1,000 ml @ 125 mls/hr Q8H IV ; Start 01/24/18 at 22:15; Stop at 22:14 Acetaminophen (Tylenol) 650 mg PRN Q4HRS PRN PO FEVER; Start 01/24/18 at 22:15 ; Stop 01/25/18 at 22:14 Active Scripts Active Ondansetron Odt (Ondansetron) 4 Mg Tab.rapdis 1 Tab PO PRN Q6-8HRS Reported Levemir Flextouch (Insulin Detemir) 100 Unit/1 Ml Insuln.pen 30 Unit SQ QHS Levemir Flextouch (Insulin Detemir) 100 Unit/1 Ml Insuln.pen 25 Unit SQ DAILY Novolog Flexpen (Insulin Aspart) 100 Unit/1 Ml Insuln.pen 15 Unit SQ BIDACLD Novolog Flexpen (Insulin Aspart) 100 Unit/1 Ml Insuln.pen 12 Unit SQ DAILYWBKFT Seroquel (Quetiapine Fumarate) 400 Mg Tablet 400 Mg PO HS Seroquel (Quetiapine Fumarate) 200 Mg Tablet 200 Mg PO DAILY Diazepam 10 Mg Tablet 10 Mg PO PRN BID PRN Escitalopram Oxalate 10 Mg Tablet 10 Mg PO DAILY Tramadol Hcl 50 Mg Tablet 50 Mg PO PRN Q6HRS PRN Latuda (Lurasidone Hcl) 40 Mg Tablet 40 Mg PO QPM Lovastatin 40 Mg Tablet 40 Mg PO DAILY Amitriptyline Hcl 25 Mg Tablet 25 Mg PO PRN QHS PRN Omeprazole 20 Mg Capsule.dr 20 Mg PO DAILY Depakote (Divalproex Sodium) 500 Mg Tablet. 1,000 Tab PO DAILY Allergies Allergies: Coded Allergies: No Known Drug Allergies (Unverified , 07/08/15) ROS Review of System unable , to lethargic to speak more than 1-2 words, then asleep again Physical Exam General: Other (obtunded, barely arouseable for a few seconds) HEENT: Atraumatic Lungs: Clear to auscultation, Normal air movement Heart: S1S2, no murmurs Abdomen: Normal bowel sounds, Soft Extremities: No cyanosis, No edema Skin: No rashes, Other (small scars to left anterior wrist ) Neuro: Other Psych/Mental Status: Other (lethragic, obtunded) Vitals Vitals Vital Signs Date Time Temp Pulse Resp B/P (MAP) Pulse Ox O2 Delivery O2 Flow Rate FiO2 01/24/18 19:21 98.4 101 20 120/84 (96) 100 Room Air 98.4 Labs Labs Laboratory Tests Test 01/24/18 19:20 01/24/18 19:40 Bedside Urine HCG, Qualitative Hcg negative (Negative) White Blood Count 15.7 x10^3/uL (4.0-11.0) Red Blood Count 4.55 x10^6/uL (3.50-5.40) Hemoglobin 13.8 g/dL (12.0-15.5) Hematocrit 39.5 % (36.0-47.0) Mean Corpuscular Volume 87 fL (79-100) Mean Corpuscular Hemoglobin 30 pg (25-35) Mean Corpuscular Hemoglobin Concent 35 g/dL (31-37) Red Cell Distribution Width 13.0 % (11.5-14.5) Platelet Count 298 x10^3/uL (140-400) Neutrophils (%) (Auto) 60 % (31-73) Lymphocytes (%) (Auto) 29 % (24-48) Monocytes (%) (Auto) 9 % (0-9) Eosinophils (%) (Auto) 1 % (0-3) Basophils (%) (Auto) 1 % (0-3) Neutrophils # (Auto) 9.5 x10^3uL (1.8-7.7) Lymphocytes # (Auto) 4.6 x10^3/uL (1.0-4.8) Monocytes # (Auto) 1.4 x10^3/uL (0.0-1.1) Eosinophils # (Auto) 0.2 x10^3/uL (0.0-0.7) Basophils # (Auto) 0.1 x10^3/uL (0.0-0.2) Urine Collection Type Void Urine Color Yellow Urine Clarity Clear Urine pH 6.0 Urine Specific [place] >=1.030 Urine Protein Negative mg/dL (NEG-TRACE) Urine Glucose (UA) >=1000 mg/dL (NEG) Urine Ketones (Stick) 15 mg/dL (NEG) Urine Blood Negative (NEG) Urine Nitrite Negative (NEG) Urine Bilirubin Negative (NEG) Urine Urobilinogen Dipstick 0.2 mg/dL (0.2 mg/dL) Urine Leukocyte Esterase Negative (NEG) Urine RBC 0 /HPF (0-2) Urine WBC 1-4 /HPF (0-4) Urine Squamous Epithelial Cells Few /LPF Urine Bacteria Few /HPF (0-FEW) Sodium Level 138 mmol/L (136-145) Potassium Level 3.8 mmol/L (3.5-5.1) Chloride Level 98 mmol/L (98-107) Carbon Dioxide Level 28 mmol/L (21-32) Anion Gap 12 (6-14) Blood Urea Nitrogen 16 mg/dL (7-20) Creatinine 0.5 mg/dL (0.6-1.0) Estimated GFR (Cockcroft-Gault) 138.1 BUN/Creatinine Ratio 32 (6-20) Glucose Level 189 mg/dL (70-99) Calcium Level 9.7 mg/dL (8.5-10.1) Total Bilirubin 0.3 mg/dL (0.2-1.0) Aspartate Amino Transf (AST/SGOT) 18 U/L (15-37) Alanine Aminotransferase (ALT/SGPT) 25 U/L (14-59) Alkaline Phosphatase 115 U/L (46-116) Total Protein 8.0 g/dL (6.4-8.2) Albumin 4.0 g/dL (3.4-5.0) Albumin/Globulin Ratio 1.0 (1.0-1.7) Salicylates Level 4.7 mg/dL (2.8-20.0) Salicylate Last Dose Date Unknown Salicylate Last Dose Time Unknown Urine Opiates Screen Neg (NEG) Urine Methadone Screen Neg (NEG) Acetaminophen Level < 2 mcg/ml (10-30) Acetaminophen Last Dose Date Unknown Acetaminophen Last Dose Time Unknown Urine Barbiturates Neg (NEG) Urine Phencyclidine Screen Neg (NEG) Urine Amphetamine/Methamphetamine Pos (NEG) Urine Benzodiazepines Screen Neg (NEG) Urine Cocaine Screen Neg (NEG) Urine Cannabinoids Screen Neg (NEG) Ethyl Alcohol Level < 10 mg/dL (0-10) Urine Ethyl Alcohol Neg (NEG) Laboratory Tests Test 01/24/18 19:20 01/24/18 19:40 Bedside Urine HCG, Qualitative Hcg negative (Negative) White Blood Count 15.7 x10^3/uL (4.0-11.0) Red Blood Count 4.55 x10^6/uL (3.50-5.40) Hemoglobin 13.8 g/dL (12.0-15.5) Hematocrit 39.5 % (36.0-47.0) Mean Corpuscular Volume 87 fL (79-100) Mean Corpuscular Hemoglobin 30 pg (25-35) Mean Corpuscular Hemoglobin Concent 35 g/dL (31-37) Red Cell Distribution Width 13.0 % (11.5-14.5) Platelet Count 298 x10^3/uL (140-400) Neutrophils (%) (Auto) 60 % (31-73) Lymphocytes (%) (Auto) 29 % (24-48) Monocytes (%) (Auto) 9 % (0-9) Eosinophils (%) (Auto) 1 % (0-3) Basophils (%) (Auto) 1 % (0-3) Neutrophils # (Auto) 9.5 x10^3uL (1.8-7.7) Lymphocytes # (Auto) 4.6 x10^3/uL (1.0-4.8) Monocytes # (Auto) 1.4 x10^3/uL (0.0-1.1) Eosinophils # (Auto) 0.2 x10^3/uL (0.0-0.7) Basophils # (Auto) 0.1 x10^3/uL (0.0-0.2) Urine Collection Type Void Urine Color Yellow Urine Clarity Clear Urine pH 6.0 Urine Specific [place] >=1.030 Urine Protein Negative mg/dL (NEG-TRACE) Urine Glucose (UA) >=1000 mg/dL (NEG) Urine Ketones (Stick) 15 mg/dL (NEG) Urine Blood Negative (NEG) Urine Nitrite Negative (NEG) Urine Bilirubin Negative (NEG) Urine Urobilinogen Dipstick 0.2 mg/dL (0.2 mg/dL) Urine Leukocyte Esterase Negative (NEG) Urine RBC 0 /HPF (0-2) Urine WBC 1-4 /HPF (0-4) Urine Squamous Epithelial Cells Few /LPF Urine Bacteria Few /HPF (0-FEW) Sodium Level 138 mmol/L (136-145) Potassium Level 3.8 mmol/L (3.5-5.1) Chloride Level 98 mmol/L (98-107) Carbon Dioxide Level 28 mmol/L (21-32) Anion Gap 12 (6-14) Blood Urea Nitrogen 16 mg/dL (7-20) Creatinine 0.5 mg/dL (0.6-1.0) Estimated GFR (Cockcroft-Gault) 138.1 BUN/Creatinine Ratio 32 (6-20) Glucose Level 189 mg/dL (70-99) Calcium Level 9.7 mg/dL (8.5-10.1) Total Bilirubin 0.3 mg/dL (0.2-1.0) Aspartate Amino Transf (AST/SGOT) 18 U/L (15-37) Alanine Aminotransferase (ALT/SGPT) 25 U/L (14-59) Alkaline Phosphatase 115 U/L (46-116) Total Protein 8.0 g/dL (6.4-8.2) Albumin 4.0 g/dL (3.4-5.0) Albumin/Globulin Ratio 1.0 (1.0-1.7) Salicylates Level 4.7 mg/dL (2.8-20.0) Salicylate Last Dose Date Unknown Salicylate Last Dose Time Unknown Urine Opiates Screen Neg (NEG) Urine Methadone Screen Neg (NEG) Acetaminophen Level < 2 mcg/ml (10-30) Acetaminophen Last Dose Date Unknown Acetaminophen Last Dose Time Unknown Urine Barbiturates Neg (NEG) Urine Phencyclidine Screen Neg (NEG) Urine Amphetamine/Methamphetamine Pos (NEG) Urine Benzodiazepines Screen Neg (NEG) Urine Cocaine Screen Neg (NEG) Urine Cannabinoids Screen Neg (NEG) Ethyl Alcohol Level < 10 mg/dL (0-10) Urine Ethyl Alcohol Neg (NEG) VTE Prophylaxis Ordered VTE Prophylaxis Devices: No VTE Pharmacological Prophylaxi: Yes Assessment/Plan Assessment/Plan pt reported to ER, wanting hlep with meth addiction acute encephalopathy, intentional seroquel OD difficulty to arouse will obs dm1 insulin, large amts, Large seroquel doses, poss bipolar or other similar psych CAMMY LEVINE MD Jan 24, 2018 23:12
[2018-01-24] MEDS ORDERED: traMADol 50 MG TABLET PO PRN (23:15)
[2018-01-24] MEDS ORDERED: diazePAM 5 MG TABLET PO PRN (23:15)
[2018-01-24] MEDS ORDERED: AMITRIPTYLINE HCL 25 MG TABLET. PO PRN (23:15)
[2018-01-24] MEDS ORDERED: ONDANSETRON ODT 4 MG TAB.RAPDIS. PO PRN (23:15)
[2018-01-25] MEDS ORDERED: INFLUENZA VAX SCREEN BY RX. MC PRN (02:00)
[2018-01-25 03:00] VITALS: BP 100/62
[2018-01-25] MEDS: IV NORMAL SALINE 1000ML BAG 1,000 ML IV SCH (05:42)
[2018-01-25 07:00] VITALS: BP 98/57
[2018-01-25] MEDS ORDERED: PANTOPRAZOLE 40 MG TABLET.DR. PO SCH (07:30)
[2018-01-25] MEDS ORDERED: INSULIN LISPRO 300 UNITS/3 ML INSULN.PEN. SQ SCH ×3 (08:00→12:00)
[2018-01-25] MEDS ORDERED: INSULIN GLARGINE 300 UNITS/3 ML INSULN.PEN. SQ SCH ×2 (09:00→21:00)
[2018-01-25] MEDS ORDERED: DIVALPROEX DELAYED RELEASE 500 MG TABLET.DR. PO SCH (09:00)
[2018-01-25] MEDS ORDERED: CITALOPRAM 20 MG TABLET. PO SCH (09:00)
--- NOTE | 2018-01-25 10:41 | PDOC ---
PROGRESS NOTES Chief Complaint Chief Complaint pt reported to ER, wanting hlep with meth addiction acute encephalopathy, intentional seroquel OD Bipolar 1 substance abuse disorder Dm1, decent control anxiety disorder, History of Present Illness History of Present Illness she reports needing Valium PRN - has been on sched clonipin recently follow [facility], poor current control, reports major depression currently with Bipolar 1, no recent zakia, no plan or thought of self-harm, SI or HI Vitals Vitals Vital Signs Date Time Temp Pulse Resp B/P (MAP) Pulse Ox O2 Delivery O2 Flow Rate FiO2 01/25/18 08:50 20 Room Air 01/25/18 07:00 97.8 77 98/57 (71) 100 97.8 Physical Exam General: Alert, Oriented X3, Cooperative, mild distress Heart: Regular rate Lungs: Clear Abdomen: Normal bowel sounds, Soft Extremities: No cyanosis, No edema Skin: No rashes, Other (small scars to left anterior wrist ) Labs LABS Laboratory Tests Test 01/24/18 19:20 01/24/18 19:40 01/25/18 08:36 Bedside Urine HCG, Qualitative Hcg negative (Negative) White Blood Count 15.7 x10^3/uL (4.0-11.0) Red Blood Count 4.55 x10^6/uL (3.50-5.40) Hemoglobin 13.8 g/dL (12.0-15.5) Hematocrit 39.5 % (36.0-47.0) Mean Corpuscular Volume 87 fL (79-100) Mean Corpuscular Hemoglobin 30 pg (25-35) Mean Corpuscular Hemoglobin Concent 35 g/dL (31-37) Red Cell Distribution Width 13.0 % (11.5-14.5) Platelet Count 298 x10^3/uL (140-400) Neutrophils (%) (Auto) 60 % (31-73) Lymphocytes (%) (Auto) 29 % (24-48) Monocytes (%) (Auto) 9 % (0-9) Eosinophils (%) (Auto) 1 % (0-3) Basophils (%) (Auto) 1 % (0-3) Neutrophils # (Auto) 9.5 x10^3uL (1.8-7.7) Lymphocytes # (Auto) 4.6 x10^3/uL (1.0-4.8) Monocytes # (Auto) 1.4 x10^3/uL (0.0-1.1) Eosinophils # (Auto) 0.2 x10^3/uL (0.0-0.7) Basophils # (Auto) 0.1 x10^3/uL (0.0-0.2) Urine Collection Type Void Urine Color Yellow Urine Clarity Clear Urine pH 6.0 Urine Specific [place] >=1.030 Urine Protein Negative mg/dL (NEG-TRACE) Urine Glucose (UA) >=1000 mg/dL (NEG) Urine Ketones (Stick) 15 mg/dL (NEG) Urine Blood Negative (NEG) Urine Nitrite Negative (NEG) Urine Bilirubin Negative (NEG) Urine Urobilinogen Dipstick 0.2 mg/dL (0.2 mg/dL) Urine Leukocyte Esterase Negative (NEG) Urine RBC 0 /HPF (0-2) Urine WBC 1-4 /HPF (0-4) Urine Squamous Epithelial Cells Few /LPF Urine Bacteria Few /HPF (0-FEW) Sodium Level 138 mmol/L (136-145) Potassium Level 3.8 mmol/L (3.5-5.1) Chloride Level 98 mmol/L (98-107) Carbon Dioxide Level 28 mmol/L (21-32) Anion Gap 12 (6-14) Blood Urea Nitrogen 16 mg/dL (7-20) Creatinine 0.5 mg/dL (0.6-1.0) Estimated GFR (Cockcroft-Gault) 138.1 BUN/Creatinine Ratio 32 (6-20) Glucose Level 189 mg/dL (70-99) Calcium Level 9.7 mg/dL (8.5-10.1) Total Bilirubin 0.3 mg/dL (0.2-1.0) Aspartate Amino Transf (AST/SGOT) 18 U/L (15-37) Alanine Aminotransferase (ALT/SGPT) 25 U/L (14-59) Alkaline Phosphatase 115 U/L (46-116) Total Protein 8.0 g/dL (6.4-8.2) Albumin 4.0 g/dL (3.4-5.0) Albumin/Globulin Ratio 1.0 (1.0-1.7) Salicylates Level 4.7 mg/dL (2.8-20.0) Salicylate Last Dose Date Unknown Salicylate Last Dose Time Unknown Urine Opiates Screen Neg (NEG) Urine Methadone Screen Neg (NEG) Acetaminophen Level < 2 mcg/ml (10-30) Acetaminophen Last Dose Date Unknown Acetaminophen Last Dose Time Unknown Urine Barbiturates Neg (NEG) Urine Phencyclidine Screen Neg (NEG) Urine Amphetamine/Methamphetamine Pos (NEG) Urine Benzodiazepines Screen Neg (NEG) Urine Cocaine Screen Neg (NEG) Urine Cannabinoids Screen Neg (NEG) Ethyl Alcohol Level < 10 mg/dL (0-10) Urine Ethyl Alcohol Neg (NEG) Glucose (Fingerstick) 279 mg/dL (70-99) Review of Systems Review of Systems depression, anxiety, agitaion, but very hungry Comment Review of Relevant I have reviewed the following items rosa (where applicable) has been applied. Labs Laboratory Tests Test 01/24/18 19:20 01/24/18 19:40 01/25/18 08:36 Bedside Urine HCG, Qualitative Hcg negative (Negative) White Blood Count 15.7 x10^3/uL (4.0-11.0) Red Blood Count 4.55 x10^6/uL (3.50-5.40) Hemoglobin 13.8 g/dL (12.0-15.5) Hematocrit 39.5 % (36.0-47.0) Mean Corpuscular Volume 87 fL (79-100) Mean Corpuscular Hemoglobin 30 pg (25-35) Mean Corpuscular Hemoglobin Concent 35 g/dL (31-37) Red Cell Distribution Width 13.0 % (11.5-14.5) Platelet Count 298 x10^3/uL (140-400) Neutrophils (%) (Auto) 60 % (31-73) Lymphocytes (%) (Auto) 29 % (24-48) Monocytes (%) (Auto) 9 % (0-9) Eosinophils (%) (Auto) 1 % (0-3) Basophils (%) (Auto) 1 % (0-3) Neutrophils # (Auto) 9.5 x10^3uL (1.8-7.7) Lymphocytes # (Auto) 4.6 x10^3/uL (1.0-4.8) Monocytes # (Auto) 1.4 x10^3/uL (0.0-1.1) Eosinophils # (Auto) 0.2 x10^3/uL (0.0-0.7) Basophils # (Auto) 0.1 x10^3/uL (0.0-0.2) Urine Collection Type Void Urine Color Yellow Urine Clarity Clear Urine pH 6.0 Urine Specific [place] >=1.030 Urine Protein Negative mg/dL (NEG-TRACE) Urine Glucose (UA) >=1000 mg/dL (NEG) Urine Ketones (Stick) 15 mg/dL (NEG) Urine Blood Negative (NEG) Urine Nitrite Negative (NEG) Urine Bilirubin Negative (NEG) Urine Urobilinogen Dipstick 0.2 mg/dL (0.2 mg/dL) Urine Leukocyte Esterase Negative (NEG) Urine RBC 0 /HPF (0-2) Urine WBC 1-4 /HPF (0-4) Urine Squamous Epithelial Cells Few /LPF Urine Bacteria Few /HPF (0-FEW) Sodium Level 138 mmol/L (136-145) Potassium Level 3.8 mmol/L (3.5-5.1) Chloride Level 98 mmol/L (98-107) Carbon Dioxide Level 28 mmol/L (21-32) Anion Gap 12 (6-14) Blood Urea Nitrogen 16 mg/dL (7-20) Creatinine 0.5 mg/dL (0.6-1.0) Estimated GFR (Cockcroft-Gault) 138.1 BUN/Creatinine Ratio 32 (6-20) Glucose Level 189 mg/dL (70-99) Calcium Level 9.7 mg/dL (8.5-10.1) Total Bilirubin 0.3 mg/dL (0.2-1.0) Aspartate Amino Transf (AST/SGOT) 18 U/L (15-37) Alanine Aminotransferase (ALT/SGPT) 25 U/L (14-59) Alkaline Phosphatase 115 U/L (46-116) Total Protein 8.0 g/dL (6.4-8.2) Albumin 4.0 g/dL (3.4-5.0) Albumin/Globulin Ratio 1.0 (1.0-1.7) Salicylates Level 4.7 mg/dL (2.8-20.0) Salicylate Last Dose Date Unknown Salicylate Last Dose Time Unknown Urine Opiates Screen Neg (NEG) Urine Methadone Screen Neg (NEG) Acetaminophen Level < 2 mcg/ml (10-30) Acetaminophen Last Dose Date Unknown Acetaminophen Last Dose Time Unknown Urine Barbiturates Neg (NEG) Urine Phencyclidine Screen Neg (NEG) Urine Amphetamine/Methamphetamine Pos (NEG) Urine Benzodiazepines Screen Neg (NEG) Urine Cocaine Screen Neg (NEG) Urine Cannabinoids Screen Neg (NEG) Ethyl Alcohol Level < 10 mg/dL (0-10) Urine Ethyl Alcohol Neg (NEG) Glucose (Fingerstick) 279 mg/dL (70-99) Laboratory Tests Test 01/24/18 19:20 01/24/18 19:40 01/25/18 08:36 Bedside Urine HCG, Qualitative Hcg negative (Negative) White Blood Count 15.7 x10^3/uL (4.0-11.0) Red Blood Count 4.55 x10^6/uL (3.50-5.40) Hemoglobin 13.8 g/dL (12.0-15.5) Hematocrit 39.5 % (36.0-47.0) Mean Corpuscular Volume 87 fL (79-100) Mean Corpuscular Hemoglobin 30 pg (25-35) Mean Corpuscular Hemoglobin Concent 35 g/dL (31-37) Red Cell Distribution Width 13.0 % (11.5-14.5) Platelet Count 298 x10^3/uL (140-400) Neutrophils (%) (Auto) 60 % (31-73) Lymphocytes (%) (Auto) 29 % (24-48) Monocytes (%) (Auto) 9 % (0-9) Eosinophils (%) (Auto) 1 % (0-3) Basophils (%) (Auto) 1 % (0-3) Neutrophils # (Auto) 9.5 x10^3uL (1.8-7.7) Lymphocytes # (Auto) 4.6 x10^3/uL (1.0-4.8) Monocytes # (Auto) 1.4 x10^3/uL (0.0-1.1) Eosinophils # (Auto) 0.2 x10^3/uL (0.0-0.7) Basophils # (Auto) 0.1 x10^3/uL (0.0-0.2) Urine Collection Type Void Urine Color Yellow Urine Clarity Clear Urine pH 6.0 Urine Specific [place] >=1.030 Urine Protein Negative mg/dL (NEG-TRACE) Urine Glucose (UA) >=1000 mg/dL (NEG) Urine Ketones (Stick) 15 mg/dL (NEG) Urine Blood Negative (NEG) Urine Nitrite Negative (NEG) Urine Bilirubin Negative (NEG) Urine Urobilinogen Dipstick 0.2 mg/dL (0.2 mg/dL) Urine Leukocyte Esterase Negative (NEG) Urine RBC 0 /HPF (0-2) Urine WBC 1-4 /HPF (0-4) Urine Squamous Epithelial Cells Few /LPF Urine Bacteria Few /HPF (0-FEW) Sodium Level 138 mmol/L (136-145) Potassium Level 3.8 mmol/L (3.5-5.1) Chloride Level 98 mmol/L (98-107) Carbon Dioxide Level 28 mmol/L (21-32) Anion Gap 12 (6-14) Blood Urea Nitrogen 16 mg/dL (7-20) Creatinine 0.5 mg/dL (0.6-1.0) Estimated GFR (Cockcroft-Gault) 138.1 BUN/Creatinine Ratio 32 (6-20) Glucose Level 189 mg/dL (70-99) Calcium Level 9.7 mg/dL (8.5-10.1) Total Bilirubin 0.3 mg/dL (0.2-1.0) Aspartate Amino Transf (AST/SGOT) 18 U/L (15-37) Alanine Aminotransferase (ALT/SGPT) 25 U/L (14-59) Alkaline Phosphatase 115 U/L (46-116) Total Protein 8.0 g/dL (6.4-8.2) Albumin 4.0 g/dL (3.4-5.0) Albumin/Globulin Ratio 1.0 (1.0-1.7) Salicylates Level 4.7 mg/dL (2.8-20.0) Salicylate Last Dose Date Unknown Salicylate Last Dose Time Unknown Urine Opiates Screen Neg (NEG) Urine Methadone Screen Neg (NEG) Acetaminophen Level < 2 mcg/ml (10-30) Acetaminophen Last Dose Date Unknown Acetaminophen Last Dose Time Unknown Urine Barbiturates Neg (NEG) Urine Phencyclidine Screen Neg (NEG) Urine Amphetamine/Methamphetamine Pos (NEG) Urine Benzodiazepines Screen Neg (NEG) Urine Cocaine Screen Neg (NEG) Urine Cannabinoids Screen Neg (NEG) Ethyl Alcohol Level < 10 mg/dL (0-10) Urine Ethyl Alcohol Neg (NEG) Glucose (Fingerstick) 279 mg/dL (70-99) Medications Current Medications Sodium Chloride 1,000 ml @ 1,000 mls/hr 1X ONCE IV Last administered on at 20:02; Start 01/24/18 at 19:45; Stop 01/24/18 at 20:45; Status DC Ondansetron HCl (Zofran) 4 mg PRN Q8HRS PRN IV NAUSEA/VOMITING; Start 01/24/18 at 22:15; Stop 01/25/18 at 22:14 Sodium Chloride 1,000 ml @ 125 mls/hr Q8H IV ; Start 01/24/18 at 22:15; Stop at 22:14 Acetaminophen (Tylenol) 650 mg PRN Q4HRS PRN PO FEVER Last administered on 01/25at 09:40; Start 01/24/18 at 22:15; Stop 01/25/18 at 22:14 Amitriptyline HCl (Elavil) 25 mg PRN QHS PRN PO INSOMNIA; Start 01/24/18 at 23: 15 Lurasidone HCl (Latuda) 40 mg QPM PO ; Start 01/25/18 at 18:00 Ondansetron HCl (Zofran Odt) 4 mg PRN Q8HRS PRN PO nausea; Start 01/24/18 at 23 :15 Tramadol HCl (Ultram) 50 mg PRN Q6HRS PRN PO PAIN Last administered on at 07:50; Start 01/24/18 at 23:15 Diazepam (Valium) 10 mg PRN BID PRN PO ANXIETY Last administered on 01/25/18at 09:40; Start 01/24/18 at 23:15 Divalproex Sodium (Depakote) 1,000 mg DAILY PO Last administered on 01/25/18at 09:39; Start 01/25/18 at 09:00 Citalopram Hydrobromide (CeleXA) 20 mg DAILY PO Last administered on 01/25/18at 09:39; Start 01/25/18 at 09:00 Insulin Human Lispro (HumaLOG) 12 units DAILYWBKFT SQ Last administered on 01/25at 09:03; Start 01/25/18 at 08:00 Insulin Human Lispro (HumaLOG) 15 units BIDACLD SQ ; Start 01/25/18 at 11:30 Insulin Glargine (Lantus) 25 units DAILY SQ Last administered on 01/25/18at 09: 04; Start 01/25/18 at 09:00 Insulin Glargine (Lantus) 30 units QHS SQ ; Start 01/25/18 at 21:00 Atorvastatin Calcium (Lipitor) 10 mg HS PO ; Start 01/25/18 at 21:00 Pantoprazole Sodium (Protonix) 40 mg DAILYAC PO Last administered on 01/25/18at 07:50; Start 01/25/18 at 07:30 Influenza Virus Vaccine (Afluria Trivalent [id number] Syringe) 0.5 ml ONCE ONCE VAX IM ; Start 01/25/18 at 09:00; Stop 01/25/18 at 09:01; Status DC Info (Do NOT chart on this placeholder) 1 each PRN 1X PRN MC SEE COMMENTS; Start 01/25/18 at 02:00; Status Cancel Active Scripts Active Ondansetron Odt (Ondansetron) 4 Mg Tab.rapdis 1 Tab PO PRN Q6-8HRS Reported Levemir Flextouch (Insulin Detemir) 100 Unit/1 Ml Insuln.pen 30 Unit SQ QHS Levemir Flextouch (Insulin Detemir) 100 Unit/1 Ml Insuln.pen 25 Unit SQ DAILY Novolog Flexpen (Insulin Aspart) 100 Unit/1 Ml Insuln.pen 15 Unit SQ BIDACLD Novolog Flexpen (Insulin Aspart) 100 Unit/1 Ml Insuln.pen 12 Unit SQ DAILYWBKFT Seroquel (Quetiapine Fumarate) 400 Mg Tablet 400 Mg PO HS Seroquel (Quetiapine Fumarate) 200 Mg Tablet 200 Mg PO DAILY Diazepam 10 Mg Tablet 10 Mg PO PRN BID PRN Escitalopram Oxalate 10 Mg Tablet 10 Mg PO DAILY Tramadol Hcl 50 Mg Tablet 50 Mg PO PRN Q6HRS PRN Latuda (Lurasidone Hcl) 40 Mg Tablet 40 Mg PO QPM Lovastatin 40 Mg Tablet 40 Mg PO DAILY Amitriptyline Hcl 25 Mg Tablet 25 Mg PO PRN QHS PRN Omeprazole 20 Mg Capsule. 20 Mg PO DAILY Depakote (Divalproex Sodium) 500 Mg Tablet. 1,000 Tab PO DAILY Vitals/I & O Vital Sign - Last 24 Hours 01/24/18 01/24/18 01/24/18 9/23/18 19:21 20:59 22:00 00:00 Temp 98.4 98.4 Pulse 101 87 81 Resp 20 18 18 B/P (MAP) 120/84 (96) 123/81 (95) 128/87 (101) Pulse Ox 100 95 98 O2 Delivery Room Air Room Air Room Air 01/25/18 01/25/18 01/25/18 01/25/18 03:00 07:00 07:50 08:50 Temp 97.7 97.8 97.7 97.8 Pulse 81 77 Resp 18 17 20 20 B/P (MAP) 100/62 (75) 98/57 (71) Pulse Ox 96 100 O2 Delivery Room Air Room Air Intake and Output 01/24/18 01/24/18 01/25/18 15:00 23:00 07:00 Output Total 0 ml Balance 0 ml CAMMY LEVINE MD Jan 25, 2018 10:41
[2018-01-25] MEDS ORDERED: DEXTROSE 50% 25 GM / 50ML DISP.SYRIN. IV PRN (10:45)
[2018-01-25 11:00] VITALS: BP 124/79
[2018-01-25] MEDS ORDERED: NICOTINE POLACRILEX 2MG GUM PACKAGE of 12. BC PRN (12:15)
[2018-01-25] MEDS ORDERED: NICOTINE 21MG PATCH. TD PRN (12:15)
[2018-01-25] MEDS ORDERED: LURASIDONE 40 MG TABLET. PO SCH (18:00)
[2018-01-25] MEDS ORDERED: ATORVASTATIN CALCIUM 10 MG TABLET. PO SCH (21:00)
--- NOTE | 2018-01-25 21:16 | EKG ---
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
--- NOTE | 2018-01-26 15:38 | PDOC3 ---
Discharge Summary Visit Information Date of Admission: Jan 24, 2018 Date of Discharge: Jan 25, 2018 Admitting Diagnosis: seroquel overdose, intentional, no intent for self harm Admitting Diagnosis Comment: trying to sleep off meth withdrawl Final Diagnosis admit, trying to stop and wantoing help with meth addiction acute encephalopathy, intentional seroquel OD to avoid meth withdrawl symptoms Bipolar 1, reports currently depressed substance abuse disorder Dm1, decent control anxiety disorder, tobacco abuse, Brief Hospital Course Allergies Allergies Coded Allergies Type Severity Reaction Last Updated Verified No Known Drug Allergies 07/08/15 No Vital Signs Vital Signs Date Time Temp Pulse Resp B/P (MAP) Pulse Ox O2 Delivery O2 Flow Rate FiO2 01/25/18 11:00 98.3 93 18 124/79 (94) 96 98.3 01/25/18 08:50 Room Air Lab Results Laboratory Tests Test 01/24/18 19:20 01/24/18 19:40 01/25/18 08:36 01/25/18 11:43 Bedside Urine HCG, Qualitative Hcg negative (Negative) White Blood Count 15.7 x10^3/uL (4.0-11.0) Red Blood Count 4.55 x10^6/uL (3.50-5.40) Hemoglobin 13.8 g/dL (12.0-15.5) Hematocrit 39.5 % (36.0-47.0) Mean Corpuscular Volume 87 fL (79-100) Mean Corpuscular Hemoglobin 30 pg (25-35) Mean Corpuscular Hemoglobin Concent 35 g/dL (31-37) Red Cell Distribution Width 13.0 % (11.5-14.5) Platelet Count 298 x10^3/uL (140-400) Neutrophils (%) (Auto) 60 % (31-73) Lymphocytes (%) (Auto) 29 % (24-48) Monocytes (%) (Auto) 9 % (0-9) Eosinophils (%) (Auto) 1 % (0-3) Basophils (%) (Auto) 1 % (0-3) Neutrophils # (Auto) 9.5 x10^3uL (1.8-7.7) Lymphocytes # (Auto) 4.6 x10^3/uL (1.0-4.8) Monocytes # (Auto) 1.4 x10^3/uL (0.0-1.1) Eosinophils # (Auto) 0.2 x10^3/uL (0.0-0.7) Basophils # (Auto) 0.1 x10^3/uL (0.0-0.2) Urine Collection Type Void Urine Color Yellow Urine Clarity Clear Urine pH 6.0 Urine Specific [place] >=1.030 Urine Protein Negative mg/dL (NEG-TRACE) Urine Glucose (UA) >=1000 mg/dL (NEG) Urine Ketones (Stick) 15 mg/dL (NEG) Urine Blood Negative (NEG) Urine Nitrite Negative (NEG) Urine Bilirubin Negative (NEG) Urine Urobilinogen Dipstick 0.2 mg/dL (0.2 mg/dL) Urine Leukocyte Esterase Negative (NEG) Urine RBC 0 /HPF (0-2) Urine WBC 1-4 /HPF (0-4) Urine Squamous Epithelial Cells Few /LPF Urine Bacteria Few /HPF (0-FEW) Sodium Level 138 mmol/L (136-145) Potassium Level 3.8 mmol/L (3.5-5.1) Chloride Level 98 mmol/L (98-107) Carbon Dioxide Level 28 mmol/L (21-32) Anion Gap 12 (6-14) Blood Urea Nitrogen 16 mg/dL (7-20) Creatinine 0.5 mg/dL (0.6-1.0) Estimated GFR (Cockcroft-Gault) 138.1 BUN/Creatinine Ratio 32 (6-20) Glucose Level 189 mg/dL (70-99) Calcium Level 9.7 mg/dL (8.5-10.1) Total Bilirubin 0.3 mg/dL (0.2-1.0) Aspartate Amino Transf (AST/SGOT) 18 U/L (15-37) Alanine Aminotransferase (ALT/SGPT) 25 U/L (14-59) Alkaline Phosphatase 115 U/L (46-116) Total Protein 8.0 g/dL (6.4-8.2) Albumin 4.0 g/dL (3.4-5.0) Albumin/Globulin Ratio 1.0 (1.0-1.7) Salicylates Level 4.7 mg/dL (2.8-20.0) Salicylate Last Dose Date Unknown Salicylate Last Dose Time Unknown Urine Opiates Screen Neg (NEG) Urine Methadone Screen Neg (NEG) Acetaminophen Level < 2 mcg/ml (10-30) Acetaminophen Last Dose Date Unknown Acetaminophen Last Dose Time Unknown Urine Barbiturates Neg (NEG) Urine Phencyclidine Screen Neg (NEG) Urine Amphetamine/Methamphetamine Pos (NEG) Urine Benzodiazepines Screen Neg (NEG) Urine Cocaine Screen Neg (NEG) Urine Cannabinoids Screen Neg (NEG) Ethyl Alcohol Level < 10 mg/dL (0-10) Urine Ethyl Alcohol Neg (NEG) Glucose (Fingerstick) 279 mg/dL (70-99) 171 mg/dL (70-99) Brief Hospital Course Ms. Thakkar is a 37 old admitted obtunded after taking 4 seroquel, poss 800mg total, hard to awaken in ER, then next day, hyper and agitated, denied self harm or SI and HI, had a friend here, and they argued constantly, she was upset that he lost her wallet, and she became enraged and wanted to leave. Left AMA, she reported she will follow with [facility]. any intent on suicide or self harm was denied by patient, and no concerns were raised by friend when I asked her with him there. Discharge Information Disposition/Orders: Other (AMA) Scheduled Divalproex Sodium (Depakote) 500 Mg Tablet.dr, 1,000 TAB PO DAILY, #60 Ref 1 ( Reported) Entered as Reported by: CAITLYN TINEO on 09/01/152241 Last Action: Converted on 01/24/182310 by CAMMY LEVINE Escitalopram Oxalate (Escitalopram Oxalate) 10 Mg Tablet, 10 MG PO DAILY for ANTI-DEPRESSANT, #30 Ref 0 (Reported) Entered as Reported by: LIZA NAVA on 03/26/17916 Last Action: Converted on 01/24/182310 by CAMMY LEVINE Insulin Aspart (Novolog Flexpen) 100 Unit/1 Ml Insuln.pen, 12 UNIT SQ DAILYWBKFT , (Reported) Entered as Reported by: LIZA NAVA on 03/26/17916 Last Action: Converted on 01/24/182310 by CAMMY LEVINE Insulin Aspart (Novolog Flexpen) 100 Unit/1 Ml Insuln.pen, 15 UNIT SQ BIDACLD, ( Reported) Entered as Reported by: LIZA NAVA on 03/26/17916 Last Action: Converted on 01/24/182310 by CAMMY LEVINE Insulin Detemir (Levemir Flextouch) 100 Unit/1 Ml Insuln.pen, 25 UNIT SQ DAILY, (Reported) Entered as Reported by: LIZA NAVA on 03/26/17916 Last Action: Converted on 01/24/182310 by CAMMY LEVINE Insulin Detemir (Levemir Flextouch) 100 Unit/1 Ml Insuln.pen, 30 UNIT SQ QHS, ( Reported) Entered as Reported by: LIZA NAVA on 03/26/17916 Last Action: Converted on 01/24/182310 by CAMMY LEVINE Lovastatin (Lovastatin) 40 Mg Tablet, 40 MG PO DAILY, (Reported) Entered as Reported by: LIZA NAVA on 03/26/17916 Last Action: Converted on 01/24/182310 by CAMMY LEVINE Lurasidone Hcl (Latuda) 40 Mg Tablet, 40 MG PO QPM, (Reported) Entered as Reported by: LIZA NAVA on 03/26/17916 Last Action: Continued on 01/24/182310 by CAMMY LEVINE Omeprazole (Omeprazole) 20 Mg Capsule.dr, 20 MG PO DAILY, (Reported) Entered as Reported by: LIZA NAVA on 03/26/17916 Last Action: Converted on 01/24/182310 by CAMMY LEVINE Ondansetron (Ondansetron Odt) 4 Mg Tab.rapdis, 1 TAB PO PRN Q6-8HRS for VOMITING , #16 Prescribed by: MAXIME LOMBARDI D.O. on 01/14/18 1449 Last Action: Continued on 01/24/182310 by CAMMY LEVINE Quetiapine Fumarate (Seroquel) 200 Mg Tablet, 200 MG PO DAILY, (Reported) Entered as Reported by: LIZA NAVA on 03/26/17916 Last Action: HELD on 01/24/182310 by CAMMY LEVINE Quetiapine Fumarate (Seroquel) 400 Mg Tablet, 400 MG PO HS, (Reported) Entered as Reported by: LIZA NAVA on 03/26/17916 Last Action: HELD on 01/24/182310 by CAMMY LEVINE Scheduled PRN Amitriptyline Hcl (Amitriptyline Hcl) 25 Mg Tablet, 25 MG PO PRN QHS PRN for PAIN, (Reported) Entered as Reported by: LIZA NAVA on 03/26/17916 Last Action: Continued on 01/24/182310 by CAMMY LEVINE Diazepam (Diazepam) 10 Mg Tablet, 10 MG PO PRN BID PRN for ANXIETY, (Reported) Entered as Reported by: LIZA NAVA on 03/26/17916 Last Action: Converted on 01/24/182310 by CAMMY LEVINE Tramadol Hcl (Tramadol Hcl) 50 Mg Tablet, 50 MG PO PRN Q6HRS PRN for PAIN, ( Reported) Entered as Reported by: LIZA NAVA on 03/26/17916 Last Action: Continued on 01/24/182310 by CAMMY LEVINE Patient Instructions Patient Instructions > 30 min CAMMY LEVINE MD Jan 26, 2018 15:38
== END 2018-01-25 12:10 | disposition left against medical advice (07) ==
LOC: ER 19:16 → 5 NORTH 22:03 → INTOOBSV 22:03
PROVIDERS: ADMIT Internal Medicine; ATTEND Internal Medicine
DX: G93.40 Encephalopathy, unspecified (principal); E10.9 Type 1 diabetes mellitus without complications; F15.20 Other stimulant dependence, uncomplicated; F32.9 Major depressive disorder, single episode, unspecified; F41.9 Anxiety disorder, unspecified; Z72.0 Tobacco use; Z79.4 Long term (current) use of insulin; Z83.3 Family history of diabetes mellitus
CPT/HCPCS: 36415; 71045; 80053; 80307; 80329; 81001; 81025; 82962; 85025; 93005; 96372; 99285; G0378; G0480; G6039; J1815; J7030; G0379; G0479

== ENCOUNTER → 2020-06-02 | Outpatient (CLI) | payer MEDICAID, MEDICARE ==
[~2020-06-02] MED LIST changes: +ALBU2.5V8 IH; +CLONAZEPAM1 MG PO; -D-ME118S2 PO; +GABA300C18 PO; +INSU100I32 SQ; +INSU100V11 IJ; -LISI-334 PO; +LISI20TA18 PO; +OLAN5TAB3 PO; +OMEP20CA16 PO; -OMEP20CA9 PO; +OXYC-325 PO; +PROM118S10 PO; +TRAZ150T49 PO
[2020-06-02 12:33] LABS: BILIRUBIN,URINE NEGATIVE (NEG); CLARITY,URINE CLEAR; COLOR,URINE YELLOW; NITRITE,URINE NEGATIVE (NEG); PROTEIN,URINE NEGATIVE (NEG-TRACE); UROBILINOGEN,URINE 0.2 mg/dL (0.2 mg/dL)
--- NOTE | 2020-06-02 12:41 | EKG ---
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
[2020-06-02 12:42] LABS: BASO # 0.1 x10^3/uL (0.0-0.2); BASO % 0 % (0-3); EOS # 0.1 x10^3/uL (0.0-0.7); EOS % 1 % (0-3); HEMATOCRIT 41.1 % (36.0-47.0); HEMOGLOBIN 13.6 g/dL (12.0-15.5); LYMPH # 3.3 x10^3/uL (1.0-4.8); LYMPH % 25 % (24-48); MEAN CORPUSCULAR HEMOGLOBIN 29 pg (25-35); MEAN CORPUSCULAR HGB CONC 33 g/dL (31-37); MEAN CORPUSCULAR VOLUME 87 fL (79-100); MONO # 0.6 x10^3/uL (0.0-1.1); MONO % 5 % (0-9); NEUT # 9.4 x10^3/uL (1.8-7.7); NEUT % 70 % (31-73); PLATELET COUNT 377 x10^3/uL (140-400); RED BLOOD COUNT 4.74 x10^6/uL (3.50-5.40); RED CELL DISTRIBUTION WIDTH 13.9 % (11.5-14.5); WHITE BLOOD COUNT 13.5 x10^3/uL (4.0-11.0)
[2020-06-02 12:44] LABS: BACTERIA,URINE 0 /HPF (0-FEW); RBC,URINE 0 /HPF (0-2); WBC,URINE 0 /HPF (0-4)
[2020-06-02 12:53] LABS: ALBUMIN 3.6 g/dL (3.4-5.0); CALCIUM 8.9 mg/dL (8.5-10.1); CREATININE 0.5 mg/dL (0.6-1.0); GFR 136.6; POTASSIUM 3.9 mmol/L (3.5-5.1); TOTAL BILIRUBIN 0.2 mg/dL (0.2-1.0); TOTAL PROTEIN 7.3 g/dL (6.4-8.2)
--- NOTE | 2020-06-02 16:39 | RAD ---
EXAM: CHEST 2 VIEWS. HISTORY: Preoperative risk factors. COMPARISON: 01/24/2018. FINDINGS: Frontal and lateral views of the chest are obtained. There are no confluent infiltrates. There is no pneumothorax or pleural effusion. The heart is not en larged. IMPRESSION: 1. No confluent infiltrates. Electronically signed by: Humberto Deras MD (06/02/2020 4:36 PM) [id number]
[2020-06-03 00:53] LABS: HEMOGLOBIN A1C 9.1 % (4.8-5.6)
== END ==
LOC: SURGPAT 11:51
PROVIDERS: ATTEND Obstetrics & Gynecology
DX: Z01.812 Encounter for preprocedural laboratory examination (principal); Z20.822 Contact with and (suspected) exposure to COVID-19
CPT/HCPCS: 36415; 71046; 80053; 81001; 83036; 85025; 93005; U0003